=== PATIENT | male | born 1935 | race Caucasian/White ===

== ENCOUNTER 2016-11-04 12:17 | Inpatient (IN) | payer MEDICARE, OTHER ==
[~2016-11-04] VITALS: Ht 172.7 cm; Wt 97.6 kg
[2016-11-04 12:24] VITALS: BP 100/64
--- NOTE | 2016-11-04 12:51 | History & Physicial ---
History of Present Illness History of Present Illness Reason for visit/HPI CVA. Acute Lacunar infarct.. Patient 81 years old found by [facility] [place] was delivering oxygen to the patient's home. Patient was on the floor and flaccid on the right side. Transferred to [facility] from the to [facility] in [place] and now in via [facility]. Patient had right sided facial droop and difficulty in speaking. Patient has COPD on oxygen. Patient has Parkinson disease. dementia. DVT. COPD. Diabetes. Patient hard of hearing history by daughter Date of Admission November 04, 2016 at 12:17 I consulted on this patient on 11/04/16 12:46 Attending Physician Apolinar Ortega MD Admitting Physician Nilson May DO Consult Past Mdopioh-Jkyoji-Ylylre Hx Patient Social History Marrital Status: Employed/Student: unemployed Surgeries HX Surgeries: Yes Respiratory Respiratory Disorders: COPD Cardiovascular Hx Cardiovascular Disorders: No Constitutional: malaise, weakness EENTM: no symptoms reported Respiratory: dyspnea on exertion, short of breath, other (COPD) Cardiovascular: no symptoms reported Gastrointestinal: no symptoms reported Genitourinary: no symptoms reported Physical Exam Vital Signs Vital Sign - Last 12Hours 11/04/16 12:24 Temp 98.6 Pulse 101 Resp 16 B/P (MAP) 100/64 Pulse Ox 91 O2 Delivery Nasal Cannula O2 Flow Rate 3.00 Capillary Refill : General Appearance: No Apparent Distress, Other (On oxygen) Eyes: Bilateral Eye Normal Inspection HEENT: Normal ENT Inspection Neck: Normal Inspection Respiratory: Decreased Breath Sounds, Wheezing Cardiovascular: Regular Rate, Rhythm, No Murmur Gastrointestinal: Non Tender, Soft Assessment/Plan Assessment and Plan 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 COPD. Dementia. Diabetes. GERD. DVT history. COPD. Problems: [place] KIM DO November 04, 2016 12:51
[2016-11-04] MEDS ORDERED: LOPERAMIDE 2 MG (IMODIUM) CAP PO PRN (14:15)
--- NOTE | 2016-11-04 14:21 | Occupational Therapy Eval ---
OT Evaluation-General/PLF Medical Diagnosis Admission Date November 04, 2016 at 12:17 Medical Diagnosis: CVA Onset Date: November 04, 2016 Therapy Diagnosis Therapy Diagnosis: Impaired self care skills Referral Physician: Lisa Medical History Pertinent Medical History: COPD, DM, Dementia, GERD, HTN, Parkinson's Reviewed History: Yes Social History Home: Single Level Current Living Status: Alone (Daughter states family stays with pt at night. He is home alone sometimes during the day) Entry Into Home: Stairs Without Railing Steps Into Home: 4 ADL-Prior Level of Function ADL PLOF Comments Daughter states pt is usually able to dress himself, but receives assist as needed. Bath aide 2x/wk. Family does the cooking and cleaning. No AD for mobility DME/Equipment: Bath Chair, Shower OT Current Status Subjective Pt sitting in chair with daughter present, agrees to treatment. Mental Status/Objective Patient Orientation: Person Pt states he is in [place]. Attachments: Oxygen Current Glasses/Contacts: Yes (reading glasses) Dentures/Partials: Yes Hand Dominance: Right Upper Extremity ROM Grossly WFL Upper Extremity Sensation Pt reports numbness in right fingers Upper Extremity Strength Grossly 4/5 ADL-Treatment ADL-Current Pt participated in UE assessment while seated in chair. Pt washed face with set up and increased time. Sit to stand with minimal assistance. Pt demonstrated ability to perform transfers with minimal assistance and cues for walker use. Pt requires directions for safety and sequencing task. Pt sitting in chair, DAILY present for continued treatment. Functional [place] Measure 0=Not Assessed/NA 4=Minimal Assistance 1=Total Assistance 5=Supervision or Setup 2=Maximal Assistance 6=Modified [place] 3=Moderate Assistance 7=Complete IndependenceIRFPAI Quality Coding Scale 6 Independent with activity with or without an assistive device 5 Patient requires set up or clean up by helper. Patient completes activity by themselves 4 Supervision or touching assist (CGA). [place] provide cues , steadying assist 3 The helper provides less than half the effort to complete the activity 2 The helper provides more than half the effort to complete the activity 1 Dependent. The helper does all the effort to complete an activity 7 Patient refused to complete or attempt activity 9 The patient did not perform the activity before the current illness or injury 88 Not attempted due to Medical conditions or safety concerns Education OT Patient Education: Rehab process Teaching Recipient: Patient Teaching Methods: Discussion Response to Teaching: Reinforcement Needed OT Short Term Goals Short Term Goals Time Frame: November 11, 2016 Bathing(FIM): 4 Lower Body Dressing(FIM): 4 Toileting(FIM): 4 1=Demonstrate adherence to instructed precautions during ADL tasks. 2=Patient will verbalize/demonstrate understanding of assistive devices/ modifications for ADL. 3=Patient will improve strength/tolerance for activity to enable patient to perform ADL's. OT Repairer Hairspring Goals Repairer Hairspring Goals Time Frame: November 25, 2016 Eating (FIM): 6 Eating (QC): 6 Groomin Oral Hygiene (QC): 6 Bathing(FIM): 5 Shower/Bathe Self (QC): 5 Upper Body Dressing(FIM): 5 Upper Body Dressing (QC): 5 Lower Body Dressing(FIM): 5 Lower Body Dressing (QC): 5 On/Off Footwear (QC): 5 Toileting(FIM): 5 Toileting Hygiene (QC): 5 Toilet/Commode Transfer(FIM): 5 Toilet/Commode Transfer (QC): 5 Shower Transfer(FIM): 5 Additional Goals: 1-Demonstrate ADL Tasks, 2-Verbalize Understanding, 3- ImproveStrength/Issa 1=Demonstrate adherence to instructed precautions during ADL tasks. 2=Patient will verbalize/demonstrate understanding of assistive devices/ modifications for ADL. 3=Patient will improve strength/tolerance for activity to enable patient to perform ADL's. OT Education/Plan Problem List/Assessment Assessment: Decreased Activ Tolerance, Decreased UE Strength, Dependent Transfers, Impaired Self-Care Skills Pt to benefit from skilled OT intervention for ADL training, transfers, strengthening, and safety education to maximize level of function and allow safe return home with family support. Discharge Recommendations Plan/Recommendations: Continue POC Treatment Plan/Plan of Care Treatment,Training & Education: Yes Patient would benefit from OT for education, treatment and training to promote independence in ADL's, mobility, safety and/or upper extremity function for ADL' s. Plan of Care: ADL Retraining, Functional Mobility, Group Exercise/Act as Ind, UE Funct Exercise/Act, UE Neuromus Re-Ed/Coord Treatment Duration: November 25, 2016 # of days/week 5-6 Visits Per Week: 10-12 Minutes/Day (M-F): 60-90 Minutes/Day (Sat/Holguin): PRN Agreement: Yes Rehab Potential: Good Time/GCodes Start Time: 12:10 Stop Time: 12:35 Total Time Billed (hr/min): 25 Billed Treatment Time 1 visit, EVM(15minutes), ADL(10minutes) ZANDER BERMUDEZ OT November 04, 2016 14:21
--- NOTE | 2016-11-04 14:56 | Occupational Ther Daily Note ---
OT Current Status-Daily Note Subjective Pt alert, sitting up in recliner. Daughter present in room. Pt agreed to therapy. No c/o pain at this time. Mental Status/Objective Patient Orientation: Person, Place, Time, Situation Functional [place] Measure 0=Not Assessed/NA 4=Minimal Assistance 1=Total Assistance 5=Supervision or Setup 2=Maximal Assistance 6=Modified [place] 3=Moderate Assistance 7=Complete [place] ADL-Treatment Pt able to go from supine to sitting EOB with min A. Pt then ambulated with CGA using FWW to bathroom and transferred to toilet with CGA. Pt was able to manipulate his clothing and cleanse self after toileting with CGA. Pt required min A to doff pants and was able to doff socks by self. Pt transferred to shower with min A and CGA when standing to cleanse buttocks/kelley area. Pt bathed all other areas while using shower bench, hand held shower and grabbars with SBA. Min A to don shirt, doffed shirt by self. Mod A for lower body dressing. Min A for grooming when standing at sink, pt fatigued quickly. Pt had difficulty with buttoning and zipping pants due to decreased hand strength and decreased sensation in fingers. No LOB noted throughout treatment. After therapy, PT took over care of pt. All needs met in room. Functional [place] Measure 0=Not Assessed/NA 4=Minimal Assistance 1=Total Assistance 5=Supervision or Setup 2=Maximal Assistance 6=Modified [place] 3=Moderate Assistance 7=Complete IndependenceIRFPAI Quality Coding Scale 6 Independent with activity with or without an assistive device 5 Patient requires set up or clean up by helper. Patient completes activity by themselves 4 Supervision or touching assist (CGA). [place] provide cues , steadying assist 3 The helper provides less than half the effort to complete the activity 2 The helper provides more than half the effort to complete the activity 1 Dependent. The helper does all the effort to complete an activity 7 Patient refused to complete or attempt activity 9 The patient did not perform the activity before the current illness or injury 88 Not attempted due to Medical conditions or safety concerns Grooming (FIM): 4 Oral Hygiene (QC): 3 (Per daughter. Daughter stated that she had brushed pt's dentures after breakfast.) Bathing (FIM): 4 Bathing Location: L Arm, R Arm, L Upper Leg, R Upper Leg, Chest, Abdomen, Buttocks, Perineal Area Shower/Bathe Self (QC): 3 Upper Body (FIM): 4 Upper Body Dressing (QC): 3 Lower Body Dressing (FIM): 3 Lower Body Dressing (QC): 2 On/Off Footwear (QC): 2 Toileting (FIM): 4 Toileting Hygiene (QC): 3 Transfers (B, C, W/C) (FIM): 4 Toilet/Commode Transfer (FIM): 4 Toilet Transfer (QC): 4 Shower Transfer(FIM): 4 OT Short Term Goals Short Term Goals Time Frame: November 11, 2016 Bathing(FIM): 4 Lower Body Dressing(FIM): 4 Toileting(FIM): 4 1=Demonstrate adherence to instructed precautions during ADL tasks. 2=Patient will verbalize/demonstrate understanding of assistive devices/ modifications for ADL. 3=Patient will improve strength/tolerance for activity to enable patient to perform ADL's. OT Penitentiary Goals Penitentiary Goals Time Frame: November 25, 2016 Eating (FIM): 6 Eating (QC): 6 Groomin Oral Hygiene (QC): 6 Bathing(FIM): 5 Shower/Bathe Self (QC): 5 Upper Body Dressing(FIM): 5 Upper Body Dressing (QC): 5 Lower Body Dressing(FIM): 5 Lower Body Dressing (QC): 5 On/Off Footwear (QC): 5 Toileting(FIM): 5 Toileting Hygiene (QC): 5 Toilet/Commode Transfer(FIM): 5 Toilet/Commode Transfer (QC): 5 Shower Transfer(FIM): 5 Additional Goals: 1-Demonstrate ADL Tasks, 2-Verbalize Understanding, 3- ImproveStrength/Issa 1=Demonstrate adherence to instructed precautions during ADL tasks. 2=Patient will verbalize/demonstrate understanding of assistive devices/ modifications for ADL. 3=Patient will improve strength/tolerance for activity to enable patient to perform ADL's. OT Education/Plan Problem List/Assessment Pt to benefit from skilled OT intervention for ADL training, transfers, strengthening, and safety education to maximize level of function and allow safe return home with family support. Discharge Recommendations Plan/Recommendations: Continue POC Treatment Plan/Plan of Care Patient would benefit from OT for education, treatment and training to promote independence in ADL's, mobility, safety and/or upper extremity function for ADL' s. Plan of Care: ADL Retraining, Functional Mobility, Group Exercise/Act as Ind, UE Funct Exercise/Act, UE Neuromus Re-Ed/Coord Treatment Duration: November 25, 2016 Visits Per Week: 10-12 Minutes/Day (M-F): 60-90 Minutes/Day (Sat/Holgu[place]): PRN Agreement: Yes Rehab Potential: Good Time/GCodes Start Time: 12:35 Stop Time: 13:40 Total Time Billed (hr/min): 65 Billed Treatment Time 1 visit-ADL 4 (65 min) DOMINGO PIMENTEL November 04, 2016 14:56
[2016-11-04] MEDS ORDERED: BIMA2.5D5 OU (14:57)
[2016-11-04] MEDS ORDERED: GUAI5SYR PO (14:57)
[2016-11-04] MEDS ORDERED: METH1TAB59 PO (14:57)
[2016-11-04] MEDS ORDERED: OMEP20CA12 PO (14:57)
[2016-11-04] MEDS ORDERED: WARF5TAB8 PO (14:57)
[2016-11-04] MEDS ORDERED: CARB1TAB22 PO (14:57)
[2016-11-04] MEDS ORDERED: GABA-488 PO (14:57)
[2016-11-04] MEDS ORDERED: RT-ALBUINH INH (14:57)
[2016-11-04] MEDS ORDERED: LOPE2CAP PO (14:57)
[2016-11-04] MEDS ORDERED: IPRA3AMP IH (14:57)
[2016-11-04] MEDS ORDERED: FLUT16SP22 NS (14:57)
[2016-11-04] MEDS ORDERED: MAGN400T39 PO (14:57)
[2016-11-04] MEDS ORDERED: BUDE0.5A7 NEB (14:57)
[2016-11-04] MEDS ORDERED: DONE10TA41 PO (14:57)
[2016-11-04] MEDS ORDERED: CYAN10006 PO (14:57)
[2016-11-04] MEDS ORDERED: LORA10TA7 PO (14:57)
[2016-11-04] MEDS ORDERED: CALC667C10 PO (14:57)
--- NOTE | 2016-11-04 15:08 | Physical Therapy Evaluation ---
PT Evaluation-General Medical Diagnosis Admission Date November 04, 2016 at 12:17 Medical Diagnosis: CVA Onset Date: November 04, 2016 Therapy Diagnosis Therapy Diagnosis: impaired mobility, strength, endurance Precautions Precautions/Isolations: Fall Prevention, Standard Precautions Referral Physician: Lisa Reason for Referral: Evaluation/Treatment Medical History Pertinent Medical History: COPD, DM, Dementia, GERD, HTN, Parkinson's Additional Medical History ZUNI, chronic anticoagulation, Parkinson's, surg (HCHG IVC filter placement, cataract removal, heart catheterization) Current History went to ER with right sided weakness Reviewed History: Yes Social History Home: Single Level Current Living Status: Alone (Daughter states family stays with pt at night. He is home alone sometimes during the day) Entry Into Home: Stairs Without Railing PT Steps Into Home: 4 Prior/Core FIM Prior Level of Function Functional [place] Measure 0=Not Assessed/NA 4=Minimal Assistance 1=Total Assistance 5=Supervision or Setup 2=Maximal Assistance 6=Modified [place] 3=Moderate Assistance 7=Complete [place] Bed Mobility: 7 Transfers (B,C,W/C) (FIM): 7 Gait: 7 PT Evaluation-Current Subjective Patient in recliner pre tx, he cannot answer questions about medical history, but his daughter is here and she can. Patient states he has no pain. Pt/Family Goals none stated Objective Patient Orientation: Confused Attachments: Oxygen 2L of O2 nasal canula ROM/Strength ROM Lower Extremities WNL Strenght Lower Extremities right lower extremity (hip flexion 3+/5, knee flexion 4/5, knee extension 4/5, dorsiflexion 3+/5), left lower extremity (hip flexion 3+/5, knee flexion 4/5, knee extension 4/5, dorsiflexion 3+/5) Neuromuscular (Tone, Coordination, Reflexes) WNL Sensory Vision: Functional Hearing: Impaired Hand Dominance: Right Sensation Lower Extremities patient seems to not have light touch sensation in either leg below the knee, but he also is confused and results may not be reliable Transfers Functional [place] Measure 0=Not Assessed/NA 4=Minimal Assistance 1=Total Assistance 5=Supervision or Setup 2=Maximal Assistance 6=Modified [place] 3=Moderate Assistance 7=Complete IndependenceIRFPAI Quality Coding Scale 6 Independent with activity with or without an assistive device 5 Patient requires set up or clean up by helper. Patient completes activity by themselves 4 Supervision or touching assist (CGA). [place] provide cues , steadying assist 3 The helper provides less than half the effort to complete the activity 2 The helper provides more than half the effort to complete the activity 1 Dependent. The helper does all the effort to complete an activity 7 Patient refused to complete or attempt activity 9 The patient did not perform the activity before the current illness or injury 88 Not attempted due to Medical conditions or safety concerns Transfers (B, C, W/C) (FIM): 4 Scootin Rollin Roll Left to Right (QC): 3 Supine to/from Sit: 4 Sit to/from Stand: 4 bed t/f WC(FIM only if WC use): 3 Sit to Lying (QC): 3 Lying to Sitting/Side of Bed(Q: 3 Sit to Stand (QC): 3 Chair/Yfi-ck-Cvcid Xfer(QC): 3 Car Transfer (QC): 88 Patient is min assist for bed mobility and transfers, needs cues for safety and hand placement. Patient is very ZUNI and confused so you have to go slow and make sure he can understand what you say. Gait Does the Patient Walk?: Yes Mode of Locomotion: Both Gait (FIM): 4 Walk 10 feet (QC): 3 Walk 50 ft with 2 Turns(QC): 3 Walk 150 ft (QC): 3 Walking 10ft/uneven surface-QC: 88 Distance: 150'x4 Gait Level of Assist: 4 Gait Persons Needed: 1 Gait Assistive Device: FWW Comments/Gait Description Patient needs min assist to ambulate 150' with a rolling walker due to assist turning the walker and helping direct him. Patient needs cues for safety and direction. He is not safe to ambulate over an uneven surface at this time. Wheelchair Training Does the Pt Use a Wheelchair?: Yes Wheelchair (FIM): 1 Distance: 150' Wheelchair Level of Assist: 1 Wheel 50 ft with 2 turns (QC): 1 Wheel 150 ft (QC): 1 Type of Wheelchair: Manual Patient is confused and cannot propel a manual wheelchair. Stairs Stairs (FIM): 1 #of Steps: 1 Level of Assist: 4 1 Step (curb) (QC): 3 4 Steps (QC): 88 Assistive Device: Walker 12 Steps (QC): 88 Patient can go up and down 1 step using a rolling walker with min assist to maintain balance. Balance Sitting Static: Normal Sitting Dynamic: Normal Standing Static: Fair Standing Dynamic: Fair Treatment LAQ alternating for 5 min, Nustep level 4 for 15 min, patient also stood at the edge of his bed and urinated into a urinal with min assist. Assessment/Needs Patient has impairments in mobility, strength, endurance, post CVA. He does have a right facial droop. He is confused. At the end of tx, patient placed in bed with bed alarm on and has nurse call and tray, family in the room. Patient fatigues quickly and needs rest breaks between activities. Rehab Potential: Fair PT Short Term Goals Short Term Goals Time Frame: November 11, 2016 Transfers (B,C,W/C) (FIM): 4 (CGA) Gait (FIM): 4 (CGA) Gait Distance Comment: 150' Gait Level of Assist: 4 (CGA) Gait Assistive Device: FWW PT Wax Engraver Goals Long-Term Goals PT Long-Term Goals Time Frame: November 25, 2016 Transfers (B,C,W/C) (FIM): 5 Sit to Lying (QC): 4 Lying-Sitting on Side/Bed(QC): 5 Sit to Stand (QC): 4 Rollin Roll Left to Right (QC): 4 Chair/Fzl-ev-Wzewg Xfer(QC): 4 Car Transfer (QC): 4 Gait (FIM): 5 Distance: 200' Walk 10 feet (QC): 4 Walk 10ft-Uneven Surface(QC): 4 Walk 50ft with 2 Turns (QC): 4 Walk 150 ft (QC): 4 Gait Level of Assist: 5 Gait Assistive Device: FWW Stairs (FIM): 2 # of Steps: 4 1 Step (curb) (QC): 4 4 Steps (QC): 4 12 Steps (QC): 88 Stairs Level Of Assist: 4 (CGA) Picking up an Object (QC): 88 PT Plan Problem List Problem List: Activity Tolerance, Functional Strength, Safety, Balance, Gait, Transfer, Bed Mobility, ROM Treatment/Plan Treatment Plan: Continue Plan of Care Treatment Plan: Bed Mobility, Education, Functional Activity Issa, Functional Strength, Group Therapy, Gait, Safety, Therapeutic Exercise, Transfers Treatment Duration: November 25, 2016 # of days/week 5-6 Visits Per Week: 10-11 Minutes/Day (M-F): 60-90 Minutes/Day (Sat/Holguin): 15-30 Pt/Family Agrees w/Plan: Yes Safety Risks/Education Patient Education: Gait Training, Transfer Techniques, Steps, Correct Positioning, W/C Management, Safety Issues Teaching Recipient: Patient Teaching Methods: Demonstration, Discussion Response to Teaching: Reinforcement Needed Discharge Recommendations Plan Patient will perform bed mobility and transfer training, balance and endurance training, functional strengthening, stair training, gait training, and education , to improve functional mobility and independence at home. Therapy D/C Recommendations: Home w/ Family Support, Senior Care (TCU/NH) Time/GCodes Time In: 1340 Time Out: 1510 Total Billed Treatment Time: 90 Total Billed Treatment 1 visit EVM 15' EX 20' FA 15' WC 15' GT 25' COMFORT GONSALES PT November 04, 2016 15:08
[2016-11-04] MEDS: inSUlin ASPART (NovoLOG) 1 UNIT/0.01 ML (CHARGE PER UNIT) SC SCH ×2 (15:44→20:04)
[2016-11-04] MEDS: RT-ALBUTEROL/IPRATROPIUM 3 ML (DUONEB) VIAL INH SCH ×2 (16:13→22:02)
[2016-11-04] MEDS: CALCIUM ACETATE 667 MG PO SCH (17:14)
[2016-11-04] MEDS: SINEMET 25/250 (CARBIDOPA/LEVODOPA) TAB PO SCH ×2 (17:14→20:26)
[2016-11-04 18:41] VITALS: BP 91/46
[2016-11-04] MEDS: ARFORMOTEROL 15 MCG/2 ML (BROVANA) INH SOLUTIION IH SCH (20:08)
[2016-11-04] MEDS: RT-BUDESONIDE NEBS 0.5 MG/2ML (PULMICORT) AMP INH SCH (20:08)
[2016-11-04] MEDS: LATANOPROST 0.005% (XALATAN) OPHTH SOLN 2.5 ML OU SCH (20:26)
[2016-11-04] MEDS: GABAPENTIN 300 MG (NEURONTIN) CAP PO SCH (20:26)
[2016-11-04] MEDS: DONEPEZIL 10 MG (ARICEPT) TAB PO SCH (20:26)
[2016-11-05] MEDS: RT-ALBUTEROL/IPRATROPIUM 3 ML (DUONEB) VIAL INH SCH ×4 (02:24→19:24)
[2016-11-05 05:00] VITALS: BP 95/58
[2016-11-05] MEDS: inSUlin ASPART (NovoLOG) 1 UNIT/0.01 ML (CHARGE PER UNIT) SC SCH ×4 (05:11→20:28)
[2016-11-05 06:01] LABS: MEAN PLATELET VOLUME 9.4 FL (7.4-10.4); RED BLOOD COUNT 4.12 10^6/uL (4.35-5.85); RED CELL DISTRIBUTION WIDTH 14.2 % (10.0-14.5); WHITE BLOOD COUNT 5.4 10^3/uL (4.3-11.0)
[2016-11-05 06:03] LABS: PROTHROMBIN TIME PATIENT 22.3 SEC (12.2-14.7)
[2016-11-05] MEDS: CALCIUM ACETATE 667 MG PO SCH ×2 (06:28→17:47)
[2016-11-05] MEDS: FOLIC ACID 1 MG TAB PO SCH (06:28)
[2016-11-05] MEDS: OMEPRAZOLE 20 MG (PriLOSEC) CAP NON-FORMULARY PO SCH (06:29)
[2016-11-05 06:47] LABS: ALANINE AMINOTRANSFERASE 7 U/L (0-55); ALBUMIN 3.2 G/DL (3.2-4.5); ANION GAP 6 MMOL/L (5-14); ASPARTATE AMINO TRANSFERASE 18 U/L (5-34); BILIRUBIN,TOTAL 0.5 MG/DL (0.1-1.0); BLOOD UREA NITROGEN 21 MG/DL (7-18); BUN/CREATININE RATIO 27; CALCIUM 8.8 MG/DL (8.5-10.1); CARBON DIOXIDE 28 MMOL/L (21-32); CHLORIDE 107 MMOL/L (98-107); CREATININE SERUM 0.78 MG/DL (0.60-1.30); GFR ESTIMATED > 60; GLUCOSE 125 MG/DL (70-105); POTASSIUM 3.7 MMOL/L (3.6-5.0); SODIUM 141 MMOL/L (135-145); TOTAL PROTEIN 5.7 G/DL (6.4-8.2)
[2016-11-05] MEDS ORDERED: PANTOPRAZOLE 40 MG (PROTONIX) TAB PO SCH (07:00)
[2016-11-05] MEDS: ARFORMOTEROL 15 MCG/2 ML (BROVANA) INH SOLUTIION IH SCH ×2 (07:32→19:24)
[2016-11-05] MEDS: RT-BUDESONIDE NEBS 0.5 MG/2ML (PULMICORT) AMP INH SCH ×2 (07:32→19:24)
--- NOTE | 2016-11-05 08:23 | PM&R Post Admission Assessment ---
Post Admission Physician Asses The preadmission screen agrees with the post admission assessment that the patient is a good candidate for inpatient rehabilitation. The patient will have a comprehensive program of inpatient rehabilitation with a goal of maximizing level of functional independence prior to discharge home with family. The patient will have PT/OT ninety minutes per day, each discipline, five days a week for gait ,strengthening, conditioning, balance, ADLs, any patient/family/caregiver training necessary. Speech therapy to do cognitive assessment, swallowassessment and speech assessment and treat as indicated. Rehabilitation nursing to assist with bowel, bladder, skin care, medication administration, pain management. Piping Supervisor to assist with discharge planning, community reentry. SCD's for DVT prophylaxis. He appears to be well motivated to participate in three hours of therapy a day. He should be able to tolerate three hours of therapy a day from a medical standpoint. He should benefit from the three hours of therapy a day. He has a reasonable discharge plan, reasonable discharge rehabilitation goals and a supportive family. He has various comorbidities that need to be closely monitored with medications and treatments adjusted on a daily basis as needed. These include: Copd with 02 dependence Parkinsons D Barriers to discharge for this patient who had been independent prior to this are for him to be modified independent to supervision for ADLs and mobility skills prior to discharge home with family, so as to lessen the burden of the caregivers. Risks for this patient include: 1. Fall 2. Fracture 3. DVT 4. Pulmonary embolism 5. Wound infection 6. Skin breakdown 7. Contractures 8. Poorly controlled pain 9. Urinary retention 10. UTI 11. Respiratory infection 12. Aspiration 13. Worsening Parkinsons D 14. Acute exacerbation of COPD Estimated Length of Stay: []days Prognosis: Rehab prognosis appears fair for goal of discharge home with family modified independent to supervision for ADLs and mobility skills or possibly to an KATINA if needed. MERVIN LEE MD November 05, 2016 08:23
[2016-11-05] MEDS: LORATADINE (CLARITIN) 10 MG TAB PO SCH (08:48)
[2016-11-05] MEDS: SINEMET 25/250 (CARBIDOPA/LEVODOPA) TAB PO SCH ×4 (08:49→20:28)
[2016-11-05] MEDS: CYANOCOBALAMIN 500 MCG TAB (VITAMIN B-12) PO SCH (08:49)
[2016-11-05] MEDS: MAGNESIUM OXIDE (MAG-OX)400 MG TAB PO SCH (08:49)
[2016-11-05] MEDS: lisINopril 5 MG (PRINIVIL) TABLET PO SCH (08:50)
[2016-11-05] MEDS: ASPIRIN 81 MG CHEW (CHILDREN'S ASA) PO SCH (08:51)
[2016-11-05] MEDS: FLUTICASONE NASAL SPRAY (FLONASE) 16 GM BTL NS SCH (08:52)
--- NOTE | 2016-11-05 10:16 | Physical Therapy Daily Note ---
PT Daily Note-Current Subjective States that he is doing okay. Transfers Functional [place] Measure 0=Not Assessed/NA 4=Minimal Assistance 1=Total Assistance 5=Supervision or Setup 2=Maximal Assistance 6=Modified [place] 3=Moderate Assistance 7=Complete IndependenceIRFPAI Quality Coding Scale 6 Independent with activity with or without an assistive device 5 Patient requires set up or clean up by helper. Patient completes activity by themselves 4 Supervision or touching assist (CGA). [place] provide cues , steadying assist 3 The helper provides less than half the effort to complete the activity 2 The helper provides more than half the effort to complete the activity 1 Dependent. The helper does all the effort to complete an activity 7 Patient refused to complete or attempt activity 9 The patient did not perform the activity before the current illness or injury 88 Not attempted due to Medical conditions or safety concerns Transfers (B, C, W/C) (FIM): 5 Scootin Supine to/from Sit: 5 Sit to/from Stand: 5 Gait Training Gait (FIM): 5 Distance (FIM): 3=150 ft Distance: 150' x 2 Gait Level of Assist: 5 Gait Persons Needed: 1 Gait Assistive Device: FWW Exercises NuStep Minutes: 5 NuStep Workload: 5 Assessment Current Status: Excellent Progress Patient did well with gait. PT Short Term Goals Short Term Goals Time Frame: November 11, 2016 Transfers (B,C,W/C) (FIM): 4 (CGA) Gait (FIM): 4 (CGA) Gait Distance Comment: 150' Gait Level of Assist: 4 (CGA) Gait Assistive Device: FWW Wheelchair Distance: 150' PT Intermediate Goals Advertising Clerk Goals PT Advertising Clerk Goals Time Frame: November 25, 2016 Transfers (B,C,W/C) (FIM): 5 Sit to Lying (QC): 4 Lying-Sitting on Side/Bed(QC): 5 Sit to Stand (QC): 4 Rollin Roll Left to Right (QC): 4 Chair/Wlh-ey-Gijdj Xfer(QC): 4 Car Transfer (QC): 4 Gait (FIM): 5 Distance: 200' Walk 10 feet (QC): 4 Walk 10ft-Uneven Surface(QC): 4 Walk 50ft with 2 Turns (QC): 4 Walk 150 ft (QC): 4 Gait Level of Assist: 5 Gait Assistive Device: FWW Stairs (FIM): 2 # of Steps: 4 1 Step (curb) (QC): 4 4 Steps (QC): 4 12 Steps (QC): 88 Stairs Level Of Assist: 4 (CGA) Picking up an Object (QC): 88 PT Plan Treatment/Plan Treatment Plan: Continue Plan of Care Treatment Plan: Bed Mobility, Education, Functional Activity Issa, Functional Strength, Group Therapy, Gait, Safety, Therapeutic Exercise, Transfers Treatment Duration: November 25, 2016 Visits Per Week: 10-11 Minutes/Day (M-F): 60-90 Minutes/Day (Sat/Holguin): 15-30 Time/GCodes Time In: 0935 Time Out: 1005 Total Billed Treatment Time: 30 Total Billed Treatment 1, GT x 25, EX x 5' G Codes Necessary: KORY Infante PT November 05, 2016 10:16
[2016-11-05] MEDS: warFARin 5 MG (COUMADIN) TAB PO SCH (17:47)
[2016-11-05 18:00] VITALS: BP 114/65
[2016-11-05] MEDS: DONEPEZIL 10 MG (ARICEPT) TAB PO SCH (20:28)
[2016-11-05] MEDS: GABAPENTIN 300 MG (NEURONTIN) CAP PO SCH (20:28)
[2016-11-05] MEDS: LATANOPROST 0.005% (XALATAN) OPHTH SOLN 2.5 ML OU SCH (20:29)
[2016-11-06] MEDS: RT-ALBUTEROL/IPRATROPIUM 3 ML (DUONEB) VIAL INH SCH ×4 (04:31→20:45)
[2016-11-06 05:00] VITALS: BP 122/76
[2016-11-06 05:36] LABS: INR 1.9 (0.8-1.4); PROTHROMBIN TIME PATIENT 21.7 SEC (12.2-14.7)
[2016-11-06] MEDS: inSUlin ASPART (NovoLOG) 1 UNIT/0.01 ML (CHARGE PER UNIT) SC SCH ×4 (06:26→21:46)
[2016-11-06] MEDS: FOLIC ACID 1 MG TAB PO SCH (06:27)
[2016-11-06] MEDS: CALCIUM ACETATE 667 MG PO SCH ×2 (06:27→16:10)
[2016-11-06] MEDS: OMEPRAZOLE 20 MG (PriLOSEC) CAP NON-FORMULARY PO SCH (06:27)
[2016-11-06] MEDS: LORATADINE (CLARITIN) 10 MG TAB PO SCH (07:51)
[2016-11-06] MEDS: MAGNESIUM OXIDE (MAG-OX)400 MG TAB PO SCH (07:51)
[2016-11-06] MEDS: SINEMET 25/250 (CARBIDOPA/LEVODOPA) TAB PO SCH ×4 (07:51→20:47)
[2016-11-06] MEDS: CYANOCOBALAMIN 500 MCG TAB (VITAMIN B-12) PO SCH (07:51)
[2016-11-06] MEDS: lisINopril 5 MG (PRINIVIL) TABLET PO SCH (07:52)
[2016-11-06] MEDS: ASPIRIN 81 MG CHEW (CHILDREN'S ASA) PO SCH (07:52)
[2016-11-06] MEDS: FLUTICASONE NASAL SPRAY (FLONASE) 16 GM BTL NS SCH (07:53)
[2016-11-06] MEDS: ARFORMOTEROL 15 MCG/2 ML (BROVANA) INH SOLUTIION IH SCH ×2 (10:57→20:38)
[2016-11-06] MEDS: RT-BUDESONIDE NEBS 0.5 MG/2ML (PULMICORT) AMP INH SCH ×2 (10:59→20:38)
[2016-11-06] MEDS: warFARin 5 MG (COUMADIN) TAB PO SCH (17:31)
[2016-11-06 18:26] VITALS: BP 100/59
[2016-11-06] MEDS: LATANOPROST 0.005% (XALATAN) OPHTH SOLN 2.5 ML OU SCH (20:46)
[2016-11-06] MEDS: DONEPEZIL 10 MG (ARICEPT) TAB PO SCH (20:47)
[2016-11-06] MEDS: GABAPENTIN 300 MG (NEURONTIN) CAP PO SCH (20:47)
[2016-11-07] MEDS: RT-ALBUTEROL/IPRATROPIUM 3 ML (DUONEB) VIAL INH SCH ×4 (02:21→21:00)
[2016-11-07 04:51] VITALS: BP 105/67
[2016-11-07] MEDS: inSUlin ASPART (NovoLOG) 1 UNIT/0.01 ML (CHARGE PER UNIT) SC SCH ×4 (05:10→21:57)
[2016-11-07] MEDS: CALCIUM ACETATE 667 MG PO SCH ×2 (06:05→16:55)
[2016-11-07] MEDS: OMEPRAZOLE 20 MG (PriLOSEC) CAP NON-FORMULARY PO SCH (06:05)
[2016-11-07] MEDS: FOLIC ACID 1 MG TAB PO SCH (06:06)
[2016-11-07 06:16] LABS: INR 1.8 (0.8-1.4); PROTHROMBIN TIME PATIENT 20.6 SEC (12.2-14.7)
[2016-11-07] MEDS: FLUTICASONE NASAL SPRAY (FLONASE) 16 GM BTL NS SCH (08:16)
[2016-11-07] MEDS: ASPIRIN 81 MG CHEW (CHILDREN'S ASA) PO SCH (08:17)
[2016-11-07] MEDS: SINEMET 25/250 (CARBIDOPA/LEVODOPA) TAB PO SCH ×4 (08:17→20:53)
[2016-11-07] MEDS: MAGNESIUM OXIDE (MAG-OX)400 MG TAB PO SCH (08:17)
[2016-11-07] MEDS: CYANOCOBALAMIN 500 MCG TAB (VITAMIN B-12) PO SCH (08:17)
[2016-11-07] MEDS: lisINopril 5 MG (PRINIVIL) TABLET PO SCH (08:18)
[2016-11-07] MEDS: LORATADINE (CLARITIN) 10 MG TAB PO SCH (08:19)
--- NOTE | 2016-11-07 08:30 | Progress Note (SOAP) ---
Subjective Subjective/Events-last exam CVA. COPD. Parkinson disease. DVT. Dementia. Patient hard of hearing. Patient voices no complaints Objective Exam Vital Signs Date Time Temp Pulse Resp B/P (MAP) Pulse Ox O2 Delivery O2 Flow Rate FiO2 11/07/16 06:46 91 4.50 11/07/16 04:51 97.8 76 18 105/67 92 Nasal Cannula 3.00 11/07/16 02:21 90 4.50 11/06/16 20:43 94 4.50 11/06/16 20:38 92 4.50 11/06/16 20:00 3.00 11/06/16 18:26 98.4 86 18 100/59 92 Nasal Cannula 3.00 11/06/16 15:38 94 4.00 11/06/16 11:02 92 4.00 11/06/16 10:57 92 4.00 11/06/16 09:59 3.50 I & O 11/07/16 07:00 Intake Total 1220 ml Output Total 150 ml Balance 1070 ml Capillary Refill : General Appearance: No Apparent Distress, WD/WN HEENT: Normal ENT Inspection Neck: Full Range of Motion, Normal Inspection Respiratory: Chest Non Tender, Lungs Clear Cardiovascular: Regular Rate, Rhythm, No Murmur Gastrointestinal: non tender Results Lab Laboratory Tests 11/06/16 09:46: Glucometer 106 11/06/16 14:17: Glucometer 112H 11/06/16 21:43: Glucometer 111H 11/07/16 04:29: Glucometer 102 11/07/16 05:45: Prothrombin Time 20.6H, INR Comment 1.8H Assessment/Plan Assessment/Plan Assess & Plan/Chief Complaint CVA. COPD. Parkinson disease. DVT. Dementia.. Patient on 3 L of oxygen. Patient slept well last night Clinical Quality Measures DVT/VTE Risk/Contraindication: Risk Factor Score Per Nursin RFS Level Per Nursing on Admit: 4+=Very High [place] KIM DO November 07, 2016 08:30
--- NOTE | 2016-11-07 09:34 | Occupational Ther Daily Note ---
OT Current Status-Daily Note Subjective Pt. is very CREEK. OT repeats self multiple times throughout treatment. Appearance Pt. is up in chair. Agrees to shower. Mental Status/Objective Patient Orientation: Unable to Assess Functional [place] Measure 0=Not Assessed/NA 4=Minimal Assistance 1=Total Assistance 5=Supervision or Setup 2=Maximal Assistance 6=Modified [place] 3=Moderate Assistance 7=Complete [place] Pt. is very [place]. Also has difficulty sequencing tasks at times. Requires cues to complete steps in shower of bathing. ADL-Treatment Functional [place] Measure 0=Not Assessed/NA 4=Minimal Assistance 1=Total Assistance 5=Supervision or Setup 2=Maximal Assistance 6=Modified [place] 3=Moderate Assistance 7=Complete IndependenceIRFPAI Quality Coding Scale 6 Independent with activity with or without an assistive device 5 Patient requires set up or clean up by helper. Patient completes activity by themselves 4 Supervision or touching assist (CGA). [place] provide cues , steadying assist 3 The helper provides less than half the effort to complete the activity 2 The helper provides more than half the effort to complete the activity 1 Dependent. The helper does all the effort to complete an activity 7 Patient refused to complete or attempt activity 9 The patient did not perform the activity before the current illness or injury 88 Not attempted due to Medical conditions or safety concerns Bathing (FIM): 3 (Pt. requires cues to bathe each part that he is able to reach. Otherwise, OT washes under his arms, back, and head. OT also washed chest area. Required CGA in stance for balance.) Shower/Bathe Self (QC): 3 Upper Body (FIM): 3 (Pt. requires mod assist to thread arms and head through hole. Assist to adjust over his back.) Upper Body Dressing (QC): 3 Lower Body Dressing (FIM): 3 (Pt. requires increased time to put feet into underwear and pants. CGA in stance and min assist to pull pants over hips. Max assist to don shoes and socks.) Lower Body Dressing (QC): 3 On/Off Footwear (QC): 2 Toileting (FIM): 4 Toileting Hygiene (QC): 4 Transfers (B, C, W/C) (FIM): 4 (CGA for transfers.) Toilet/Commode Transfer (FIM): 4 Toilet Transfer (QC): 4 Shower Transfer(FIM): 4 Other Treatment Pt. agrees to shower. Wears O2 into shower. Cues throughout due to CREEK and decreased awareness to sequence steps. Pt. is somewhat impulsive and it is noted several times that he attempts to stand with no walker and no assist. Pt. is educated multiple times to stay in chair, and put clip on sunglasses inspector light if needed. OT also reminds him multiple times that PT will be in soon. Pt. has chair alarm in place and call light within reach. Education OT Patient Education: Correct positioning, Modified ADL techniques, Progress toward Goal/Update tx plan, Purpose of tx/functional activities, Reviewed precautions, Rehab process, Transfer techniques Teaching Recipient: Patient Teaching Methods: Demonstration, Discussion Response to Teaching: Verbalize Understanding, Return Demonstration OT Short Term Goals Short Term Goals Time Frame: November 11, 2016 Bathing(FIM): 4 Lower Body Dressing(FIM): 4 Toileting(FIM): 4 Transfers (B,C,W/C) (FIM): 4 (CGA) 1=Demonstrate adherence to instructed precautions during ADL tasks. 2=Patient will verbalize/demonstrate understanding of assistive devices/ modifications for ADL. 3=Patient will improve strength/tolerance for activity to enable patient to perform ADL's. OT Still Operator Batch Or Continuous Goals Still Operator Batch Or Continuous Goals Time Frame: November 25, 2016 Eating (FIM): 6 Eating (QC): 6 Groomin Oral Hygiene (QC): 6 Bathing(FIM): 5 Shower/Bathe Self (QC): 5 Upper Body Dressing(FIM): 5 Upper Body Dressing (QC): 5 Lower Body Dressing(FIM): 5 Lower Body Dressing (QC): 5 On/Off Footwear (QC): 5 Toileting(FIM): 5 Toileting Hygiene (QC): 5 Toilet/Commode Transfer(FIM): 5 Toilet/Commode Transfer (QC): 5 Shower Transfer(FIM): 5 Additional Goals: 1-Demonstrate ADL Tasks, 2-Verbalize Understanding, 3- ImproveStrength/Issa 1=Demonstrate adherence to instructed precautions during ADL tasks. 2=Patient will verbalize/demonstrate understanding of assistive devices/ modifications for ADL. 3=Patient will improve strength/tolerance for activity to enable patient to perform ADL's. OT Education/Plan Problem List/Assessment Assessment: Decreased Activ Tolerance, Decreased UE Strength, Dependent Transfers, Impaired Bed Mobility, Impaired Funct Balance, Impaired I ADL's, Impaired Self-Care Skills, Restricted Funct UE ROM Pt to benefit from skilled OT intervention for ADL training, transfers, strengthening, and safety education to maximize level of function and allow safe return home with family support. Discharge Recommendations Plan/Recommendations: Continue POC Therapy D/C Recommendations: Assisted Living, Occupational Therapy Home Care, Scheduled Assistance Barriers to Progress Cognition and CREEK Treatment Plan/Plan of Care Treatment,Training & Education: Yes Patient would benefit from OT for education, treatment and training to promote independence in ADL's, mobility, safety and/or upper extremity function for ADL' s. Plan of Care: ADL Retraining, Functional Mobility, Group Exercise/Act as Ind, UE Funct Exercise/Act, UE Neuromus Re-Ed/Coord Treatment Duration: November 25, 2016 Visits Per Week: 10-12 Minutes/Day (M-F): 60-90 Minutes/Day (Sat/[place]): PRN Agreement: Yes Rehab Potential: Fair Time/GCodes Start Time: 08:30 Stop Time: 09:30 Total Time Billed (hr/min): 60 Billed Treatment Time 1, ADL x 4 BEHZAD SHAFFER OT November 07, 2016 09:34
--- NOTE | 2016-11-07 11:03 | Physical Therapy Daily Note ---
PT Daily Note-Current Subjective Patient in recliner pre tx, agrees to PT, no complaints of pain. Appearance Patient in recliner post tx with nurse call, phone, tray, all needs met. Chair alarm on. Mental Status Patient Orientation: Confused Attachments: Oxygen 5L of O2 nasal canula Transfers Functional [place] Measure 0=Not Assessed/NA 4=Minimal Assistance 1=Total Assistance 5=Supervision or Setup 2=Maximal Assistance 6=Modified [place] 3=Moderate Assistance 7=Complete IndependenceIRFPAI Quality Coding Scale 6 Independent with activity with or without an assistive device 5 Patient requires set up or clean up by helper. Patient completes activity by themselves 4 Supervision or touching assist (CGA). [place] provide cues , steadying assist 3 The helper provides less than half the effort to complete the activity 2 The helper provides more than half the effort to complete the activity 1 Dependent. The helper does all the effort to complete an activity 7 Patient refused to complete or attempt activity 9 The patient did not perform the activity before the current illness or injury 88 Not attempted due to Medical conditions or safety concerns Transfers (B, C, W/C) (FIM): 4 Sit to/from Stand: 4 CGA, cues for safety and hand placement Gait Training Gait (FIM): 4 Distance: 400', 100' Gait Level of Assist: 4 Gait Persons Needed: 1 Gait Assistive Device: FWW Patient needs cues for safety and direction, his O2 stayed at 95% Balance Picking up an Object (QC): 4 Exercises Seated Therapy Exercises: Ankle pumps, Hip flexion Seated Reps: 20 Standing: Heel/toe raises, Marching, Mini squats Standing Reps: 20 LAQ alternating for 3 min NuStep Minutes: 15 NuStep Workload: 4 Treatments transfers, ambulation, functional strengthening Assessment Current Status: Fair Progress improving endurance PT Short Term Goals Short Term Goals Time Frame: November 11, 2016 Transfers (B,C,W/C) (FIM): 4 (CGA) Gait (FIM): 4 (CGA) Gait Distance Comment: 150' Gait Level of Assist: 4 (CGA) Gait Assistive Device: FWW Wheelchair Distance: 150' PT Home Decorator Goals Retirement Goals PT Retirement Goals Time Frame: November 25, 2016 Transfers (B,C,W/C) (FIM): 5 Sit to Lying (QC): 4 Lying-Sitting on Side/Bed(QC): 5 Sit to Stand (QC): 4 Rollin Roll Left to Right (QC): 4 Chair/Gjs-tf-Pofec Xfer(QC): 4 Car Transfer (QC): 4 Gait (FIM): 5 Distance: 200' Walk 10 feet (QC): 4 Walk 10ft-Uneven Surface(QC): 4 Walk 50ft with 2 Turns (QC): 4 Walk 150 ft (QC): 4 Gait Level of Assist: 5 Gait Assistive Device: FWW Stairs (FIM): 2 # of Steps: 4 1 Step (curb) (QC): 4 4 Steps (QC): 4 12 Steps (QC): 88 Stairs Level Of Assist: 4 (CGA) Picking up an Object (QC): 88 PT Plan Problem List Problem List: Activity Tolerance, Functional Strength, Safety, Balance, Gait, Transfer, Bed Mobility, ROM Treatment/Plan Treatment Plan: Continue Plan of Care Treatment Plan: Bed Mobility, Education, Functional Activity Issa, Functional Strength, Group Therapy, Gait, Safety, Therapeutic Exercise, Transfers Treatment Duration: November 25, 2016 Visits Per Week: 10-11 Minutes/Day (M-F): 60-90 Minutes/Day (Sat/[place]): 15-30 Safety Risks/Education Patient Education: Gait Training, Transfer Techniques, Correct Positioning, Safety Issues Teaching Recipient: Patient Teaching Methods: Demonstration, Discussion Response to Teaching: Reinforcement Needed Time/GCodes Time In: 1000 Time Out: 1100 Total Billed Treatment Time: 60 Total Billed Treatment 1 visit FA 10' GT 20' EX 30' COMFORT GONSALES PT November 07, 2016 11:03
[2016-11-07] MEDS: ARFORMOTEROL 15 MCG/2 ML (BROVANA) INH SOLUTIION IH SCH ×2 (14:19→21:12)
[2016-11-07] MEDS: RT-BUDESONIDE NEBS 0.5 MG/2ML (PULMICORT) AMP INH SCH ×2 (14:19→21:12)
--- NOTE | 2016-11-07 14:32 | Occupational Ther Daily Note ---
OT Current Status-Daily Note Subjective Pt. does not report pain. Appearance Pt. up in chair. Agrees to work with OT. Requires constant cues and instruction. Mental Status/Objective Patient Orientation: Unable to Assess Functional [place] Measure 0=Not Assessed/NA 4=Minimal Assistance 1=Total Assistance 5=Supervision or Setup 2=Maximal Assistance 6=Modified [place] 3=Moderate Assistance 7=Complete [place] ADL-Treatment Functional [place] Measure 0=Not Assessed/NA 4=Minimal Assistance 1=Total Assistance 5=Supervision or Setup 2=Maximal Assistance 6=Modified [place] 3=Moderate Assistance 7=Complete IndependenceIRFPAI Quality Coding Scale 6 Independent with activity with or without an assistive device 5 Patient requires set up or clean up by helper. Patient completes activity by themselves 4 Supervision or touching assist (CGA). [place] provide cues , steadying assist 3 The helper provides less than half the effort to complete the activity 2 The helper provides more than half the effort to complete the activity 1 Dependent. The helper does all the effort to complete an activity 7 Patient refused to complete or attempt activity 9 The patient did not perform the activity before the current illness or injury 88 Not attempted due to Medical conditions or safety concerns Other Treatment Pt. on oxygen. OT assisted pt. to therapy gym with CGA. OT pushed oxygen tank. Pt. completed 11 minutes on armbike to increase overall strength and endurance. Tolerated this well. Pt. has difficulty understanding what OT is saying, such as pushing chair back from table. OT did this for him. Pt. ambulated back to room with CGA. All needs met in room. Education OT Patient Education: Correct positioning, Progress toward Goal/Update tx plan , Purpose of tx/functional activities, Reviewed precautions, Rehab process, Transfer techniques Teaching Recipient: Patient Teaching Methods: Demonstration, Discussion Response to Teaching: Verbalize Understanding, Return Demonstration OT Short Term Goals Short Term Goals Time Frame: November 11, 2016 Bathing(FIM): 4 Lower Body Dressing(FIM): 4 Toileting(FIM): 4 Transfers (B,C,W/C) (FIM): 4 (CGA) 1=Demonstrate adherence to instructed precautions during ADL tasks. 2=Patient will verbalize/demonstrate understanding of assistive devices/ modifications for ADL. 3=Patient will improve strength/tolerance for activity to enable patient to perform ADL's. OT Prison Goals Prison Goals Time Frame: November 25, 2016 Eating (FIM): 6 Eating (QC): 6 Groomin Oral Hygiene (QC): 6 Bathing(FIM): 5 Shower/Bathe Self (QC): 5 Upper Body Dressing(FIM): 5 Upper Body Dressing (QC): 5 Lower Body Dressing(FIM): 5 Lower Body Dressing (QC): 5 On/Off Footwear (QC): 5 Toileting(FIM): 5 Toileting Hygiene (QC): 5 Toilet/Commode Transfer(FIM): 5 Toilet/Commode Transfer (QC): 5 Shower Transfer(FIM): 5 Additional Goals: 1-Demonstrate ADL Tasks, 2-Verbalize Understanding, 3- ImproveStrength/Issa 1=Demonstrate adherence to instructed precautions during ADL tasks. 2=Patient will verbalize/demonstrate understanding of assistive devices/ modifications for ADL. 3=Patient will improve strength/tolerance for activity to enable patient to perform ADL's. OT Education/Plan Problem List/Assessment Assessment: Decreased Activ Tolerance, Decreased Safety Aware, Decreased UE Strength, Dependent Transfers, Impaired Bed Mobility, Impaired Cognition, Impaired I ADL's, Impaired Self-Care Skills Pt to benefit from skilled OT intervention for ADL training, transfers, strengthening, and safety education to maximize level of function and allow safe return home with family support. Discharge Recommendations Plan/Recommendations: Continue POC Therapy D/C Recommendations: Assisted Living, Occupational Therapy Home Care, Scheduled Assistance Barriers to Progress [place], cognition Treatment Plan/Plan of Care Treatment,Training & Education: Yes Patient would benefit from OT for education, treatment and training to promote independence in ADL's, mobility, safety and/or upper extremity function for ADL' s. Plan of Care: ADL Retraining, Functional Mobility, Group Exercise/Act as Ind, UE Funct Exercise/Act, UE Neuromus Re-Ed/Coord Treatment Duration: November 25, 2016 Visits Per Week: 10-12 Minutes/Day (M-F): 60-90 Minutes/Day (Sat/[place]): PRN Agreement: Yes Rehab Potential: Fair Time/GCodes Start Time: 13:35 Stop Time: 14:05 Total Time Billed (hr/min): 30 Billed Treatment Time 1, EX x 2 BEHZAD SHAFFER OT November 07, 2016 14:32
--- NOTE | 2016-11-07 14:51 | Physical Therapy Daily Note ---
PT Daily Note-Current Subjective Patient agrees to PT. No c/o at this time. Pain Numeric Pain Scale: 0-No Pain Location: No Pain Reported Mental Status Patient Orientation: Normal For Age Attachments: Oxygen Transfers Functional [place] Measure 0=Not Assessed/NA 4=Minimal Assistance 1=Total Assistance 5=Supervision or Setup 2=Maximal Assistance 6=Modified [place] 3=Moderate Assistance 7=Complete IndependenceIRFPAI Quality Coding Scale 6 Independent with activity with or without an assistive device 5 Patient requires set up or clean up by helper. Patient completes activity by themselves 4 Supervision or touching assist (CGA). [place] provide cues , steadying assist 3 The helper provides less than half the effort to complete the activity 2 The helper provides more than half the effort to complete the activity 1 Dependent. The helper does all the effort to complete an activity 7 Patient refused to complete or attempt activity 9 The patient did not perform the activity before the current illness or injury 88 Not attempted due to Medical conditions or safety concerns Transfers (B, C, W/C) (FIM): 5 Scootin Sit to/from Stand: 5 Sit to Stand (QC): 5 patient is SBA with sit to stand transfers from toilet, recliner and regular chair. Gait Training Does the Patient Walk?: Yes Gait (FIM): 4 Distance (FIM): 3=150 ft Distance: 300' x 4 Walk 10 feet (QC): 4 Walk 50 ft with 2 Turns(QC): 4 Walk 150 ft (QC): 4 Walking 10ft/uneven surface-QC: 4 Gait Level of Assist: 4 Gait Persons Needed: 1 Gait Assistive Device: FWW marching, shuffle gait sequence Exercises Seated Therapy Exercises: Ankle pumps, Long arc quads Seated Reps: 20 Assessment Patient tolerated treatment and requires recovery periods due to increase SOA. Patient is on O2 continuously 4-5L. PT to increase activity as tolerated by patient. PT Short Term Goals Short Term Goals Time Frame: November 11, 2016 Transfers (B,C,W/C) (FIM): 4 (CGA) Gait (FIM): 4 (CGA) Gait Distance Comment: 150' Gait Level of Assist: 4 (CGA) Gait Assistive Device: FWW Wheelchair Distance: 150' PT Parts Classifier Goals Parts Classifier Goals PT Correction Goals Time Frame: November 25, 2016 Transfers (B,C,W/C) (FIM): 5 Sit to Lying (QC): 4 Lying-Sitting on Side/Bed(QC): 5 Sit to Stand (QC): 4 Rollin Roll Left to Right (QC): 4 Chair/Azi-am-Ndskv Xfer(QC): 4 Car Transfer (QC): 4 Gait (FIM): 5 Distance: 200' Walk 10 feet (QC): 4 Walk 10ft-Uneven Surface(QC): 4 Walk 50ft with 2 Turns (QC): 4 Walk 150 ft (QC): 4 Gait Level of Assist: 5 Gait Assistive Device: FWW Stairs (FIM): 2 # of Steps: 4 1 Step (curb) (QC): 4 4 Steps (QC): 4 12 Steps (QC): 88 Stairs Level Of Assist: 4 (CGA) Picking up an Object (QC): 88 PT Plan Treatment/Plan Treatment Plan: Continue Plan of Care Treatment Plan: Bed Mobility, Education, Functional Activity [place], Functional Strength, Group Therapy, Gait, Safety, Therapeutic Exercise, Transfers Treatment Duration: November 25, 2016 Visits Per Week: 10-11 Minutes/Day (M-F): 60-90 Minutes/Day (Sat/[place]gu[place]): 15-30 Time/GCodes Time In: 1410 Time Out: 1440 Total Billed Treatment Time: 30 Total Billed Treatment 1 visit GT x 2 30 min MAURICE MICHEL PT November 07, 2016 14:51
[2016-11-07] MEDS: warFARin 7.5 MG (COUMADIN) TAB PO SCH (16:55)
[2016-11-07 18:00] VITALS: BP 115/76
[2016-11-07] MEDS: ATORVASTATIN 40 MG (LIPITOR) TABLET PO SCH (20:53)
[2016-11-07] MEDS: DONEPEZIL 10 MG (ARICEPT) TAB PO SCH (20:53)
[2016-11-07] MEDS: GABAPENTIN 300 MG (NEURONTIN) CAP PO SCH (20:53)
[2016-11-07] MEDS: LATANOPROST 0.005% (XALATAN) OPHTH SOLN 2.5 ML OU SCH (20:54)
--- NOTE | 2016-11-07 22:06 | Individualized Plan of Care ---
Individualized Plan of Care Rehab Nursing IPOC Order Admission Date November 04, 2016 at 12:17 Current Orders Orders Patient Visit (11/07/16 ) Functional Activities, Ea 15 (11/07/16 ) Gait Training, Ea 15 Min (11/07/16 ) Exercise Therap, Ea 15 Min (11/07/16 ) Atorvastatin Tablet (Lipitor) (11/07/16 21:00) Patient Visit (11/07/16 ) Gait Training, Ea 15 Min (11/07/16 ) Toilet every (bladder): (hrs): 2 HOURS WHILE awake prn PT IPOC Problem List: Activity Tolerance, Functional Strength, Safety, Balance, Gait, Transfer, Bed Mobility, ROM Treatment Plan: Continue Plan of Care Bed Mobility, Education, Functional Activity [place], Functional Strength, Group Therapy, Gait, Safety, Therapeutic Exercise, Transfers Treatment Duration: November 25, 2016 Visits Per Week: 10-11 Minutes/Day (M-F): 60-90 Minutes/Day (Sat/Holguin): 15-30 OT IPOC Problems: Decreased Activ Tolerance, Decreased Safety Aware, Decreased UE Strength, Dependent Transfers, Impaired Bed Mobility, Impaired Cognition, Impaired I ADL's, Impaired Self-Care Skills OT Problems Pt to benefit from skilled OT intervention for ADL training, transfers, strengthening, and safety education to maximize level of function and allow safe return home with family support. Plan of Care: ADL Retraining, Functional Mobility, Group Exercise/Act as Ind, UE Funct Exercise/Act, UE Neuromus Re-Ed/Coord Treatment Duration: November 25, 2016 Visits Per Week: 10-12 Minutes/Day (M-F): 60-90 Minutes/Day (Sat/Holgu[place]): PRN Physician IPOC Medical Issues being managed closely and that require the 24 hour availability of a physician:stroke autumn Justin Medical Issues: Falls Precautions, Infection Protection, Other (List) (as per above) Brief Synthesis of Preadmission Screen, Post-Admission Evaluation, and Therapy Evaluations:81 yo male s/p stroke referred to IRU for ongoing Stroke rehab Has HX of Autumn Justin Medical Prognosis: good Anticipated Length of Stay: 11/25/16 Rehab Goals Modified Independent to supervision for adls and mobility skills Anticipated discharge destinat: Home with family and [facility] MERVIN LEE MD November 07, 2016 22:06
[2016-11-08] MEDS: RT-ALBUTEROL/IPRATROPIUM 3 ML (DUONEB) VIAL INH SCH ×4 (03:05→20:00)
[2016-11-08 05:58] VITALS: BP 103/95
[2016-11-08 06:26] LABS: INR 1.9 (0.8-1.4); PROTHROMBIN TIME PATIENT 21.7 SEC (12.2-14.7)
[2016-11-08] MEDS: inSUlin ASPART (NovoLOG) 1 UNIT/0.01 ML (CHARGE PER UNIT) SC SCH ×4 (06:28→20:37)
[2016-11-08] MEDS: CALCIUM ACETATE 667 MG PO SCH ×2 (06:54→15:59)
[2016-11-08] MEDS: FOLIC ACID 1 MG TAB PO SCH (06:54)
[2016-11-08] MEDS: OMEPRAZOLE 20 MG (PriLOSEC) CAP NON-FORMULARY PO SCH (06:54)
[2016-11-08] MEDS: ARFORMOTEROL 15 MCG/2 ML (BROVANA) INH SOLUTIION IH SCH ×2 (07:10→20:02)
[2016-11-08] MEDS: RT-BUDESONIDE NEBS 0.5 MG/2ML (PULMICORT) AMP INH SCH ×2 (07:10→20:02)
--- NOTE | 2016-11-08 07:55 | Progress Note (SOAP) ---
Subjective Subjective/Events-last exam CVA. Patient was less confused today. patient can answer most questions today Objective Exam Vital Signs Date Time Temp Pulse Resp B/P (MAP) Pulse Ox O2 Delivery O2 Flow Rate FiO2 11/08/16 07:15 94 4.00 11/08/16 07:10 96 4.50 11/08/16 05:58 96.3 92 18 103/95 90 Nasal Cannula 11/08/16 03:05 93 4.50 11/07/16 21:18 93 4.50 11/07/16 21:12 94 4.50 11/07/16 20:55 3.00 11/07/16 18:00 98.9 89 18 115/76 94 Nasal Cannula 3.00 11/07/16 09:00 4.00 I & O 11/08/16 07:00 Intake Total 770 ml Output Total 1 ml Balance 769 ml Capillary Refill : General Appearance: No Apparent Distress, WD/WN HEENT: Normal ENT Inspection Neck: Normal Inspection Respiratory: Chest Non Tender, Normal Breath Sounds, No Accessory Muscle Use, No Respiratory Distress Cardiovascular: No Murmur Gastrointestinal: soft Results Lab Laboratory Tests 11/07/16 09:34: Glucometer 90 11/07/16 14:30: Glucometer 121H 11/07/16 20:55: Glucometer 127H 11/08/16 04:33: Glucometer 93 11/08/16 05:59: Prothrombin Time 21.7H, INR Comment 1.9H Assessment/Plan Assessment/Plan Assess & Plan/Chief Complaint CVA. COPD. Parkinson disease. DVT. Dementia.. Patient on 3 L of oxygen. Patient slept well last night. . 11/08/16. CVA. COPD. Parkinson disease. DVT. Dementia. Patient has less confusion today Clinical Quality Measures DVT/VTE Risk/Contraindication: Risk Factor Score Per Nursin RFS Level Per Nursing on Admit: 4+=Very High [place] KIM DO November 08, 2016 07:55
[2016-11-08] MEDS: CYANOCOBALAMIN 500 MCG TAB (VITAMIN B-12) PO SCH (08:52)
[2016-11-08] MEDS: SINEMET 25/250 (CARBIDOPA/LEVODOPA) TAB PO SCH ×4 (08:52→20:29)
[2016-11-08] MEDS: LORATADINE (CLARITIN) 10 MG TAB PO SCH (08:52)
[2016-11-08] MEDS: MAGNESIUM OXIDE (MAG-OX)400 MG TAB PO SCH (08:52)
[2016-11-08] MEDS: ASPIRIN 81 MG CHEW (CHILDREN'S ASA) PO SCH (08:52)
[2016-11-08] MEDS: FLUTICASONE NASAL SPRAY (FLONASE) 16 GM BTL NS SCH (08:53)
[2016-11-08] MEDS: lisINopril 5 MG (PRINIVIL) TABLET PO SCH (08:59)
[2016-11-08 09:00] VITALS: BP 100/63
--- NOTE | 2016-11-08 10:47 | Occupational Ther Daily Note ---
OT Current Status-Daily Note Subjective Pt seen in room, up in recliner finishing breakfast. No pain mentioned. Appearance Alert, cooperative. Oriented to year, location Mental Status/Objective Functional [place] Measure 0=Not Assessed/NA 4=Minimal Assistance 1=Total Assistance 5=Supervision or Setup 2=Maximal Assistance 6=Modified [place] 3=Moderate Assistance 7=Complete [place] ADL-Treatment Pt stood to toilet and started to walk to the bathroom without holding on to FWW , which was in front of him. Walked to and from bathroom with CGA, FWW. Functional [place] Measure 0=Not Assessed/NA 4=Minimal Assistance 1=Total Assistance 5=Supervision or Setup 2=Maximal Assistance 6=Modified [place] 3=Moderate Assistance 7=Complete IndependenceIRFPAI Quality Coding Scale 6 Independent with activity with or without an assistive device 5 Patient requires set up or clean up by helper. Patient completes activity by themselves 4 Supervision or touching assist (CGA). [place] provide cues , steadying assist 3 The helper provides less than half the effort to complete the activity 2 The helper provides more than half the effort to complete the activity 1 Dependent. The helper does all the effort to complete an activity 7 Patient refused to complete or attempt activity 9 The patient did not perform the activity before the current illness or injury 88 Not attempted due to Medical conditions or safety concerns Grooming (FIM): 5 (Supervision to stand at sink and wash hands. SBA, FWW.) Upper Body (FIM): 4 (Pt needed initiation cue to take thirt off but did not need assistance. Could orient t-shirt and pullover shirt and complete all steps except had difficulty initiating L hand into t-shirt and into pullover shirt, requiring min assistance. Supervision requiring for all steps for safety.) Lower Body Dressing (FIM): 3 (Pt was able to get socks off but was unable to put socks or shoes on. Sequenced all steps of lower body dressing correctly, including putting belt in belt loops, but was unable to problem-solve getting L fot into jeans, requiring min assistance. Stood SBA, FWW to pull pants up, with cues for hand placement. Fastened pants and belt with SBA. Supervision requiring for all steps for safety.) Toileting (FIM): 3 (Pt was able to manage clothing but needed help to finishing wiping. He also had difficulty getting toilet paper in the toilet ( dropped it down in his jeans). Tall toilet, grab bar, FWW) Toilet/Commode Transfer (FIM): 4 (Physical assistance for hand placement, getting on and off tall toilet, grab bars, FWW. Cues to use FWW. ) Pt was left up in recliner, chair alarm on, all needs met. All ADLs took longer than usual Education OT Patient Education: Modified ADL techniques, Purpose of tx/functional activities, Safety issues, Transfer techniques Teaching Recipient: Patient Teaching Methods: Demonstration, Discussion Response to Teaching: Verbalize Understanding, Return Demonstration, Reinforcement Needed OT Short Term Goals Short Term Goals Time Frame: November 11, 2016 Bathing(FIM): 4 Lower Body Dressing(FIM): 4 Toileting(FIM): 4 Transfers (B,C,W/C) (FIM): 4 (CGA) 1=Demonstrate adherence to instructed precautions during ADL tasks. 2=Patient will verbalize/demonstrate understanding of assistive devices/ modifications for ADL. 3=Patient will improve strength/tolerance for activity to enable patient to perform ADL's. OT Usp Goals Usp Goals Time Frame: November 25, 2016 Eating (FIM): 6 Eating (QC): 6 Groomin Oral Hygiene (QC): 6 Bathing(FIM): 5 Shower/Bathe Self (QC): 5 Upper Body Dressing(FIM): 5 Upper Body Dressing (QC): 5 Lower Body Dressing(FIM): 5 Lower Body Dressing (QC): 5 On/Off Footwear (QC): 5 Toileting(FIM): 5 Toileting Hygiene (QC): 5 Toilet/Commode Transfer(FIM): 5 Toilet/Commode Transfer (QC): 5 Shower Transfer(FIM): 5 Additional Goals: 1-Demonstrate ADL Tasks, 2-Verbalize Understanding, 3- ImproveStrength/Issa 1=Demonstrate adherence to instructed precautions during ADL tasks. 2=Patient will verbalize/demonstrate understanding of assistive devices/ modifications for ADL. 3=Patient will improve strength/tolerance for activity to enable patient to perform ADL's. OT Education/Plan Problem List/Assessment Pt to benefit from skilled OT intervention for ADL training, transfers, strengthening, and safety education to maximize level of function and allow safe return home with family support. Discharge Recommendations Plan/Recommendations: Continue POC Treatment Plan/Plan of Care Patient would benefit from OT for education, treatment and training to promote independence in ADL's, mobility, safety and/or upper extremity function for ADL' s. Plan of Care: ADL Retraining, Functional Mobility, Group Exercise/Act as Ind, UE Funct Exercise/Act, UE Neuromus Re-Ed/Coord Treatment Duration: November 25, 2016 Visits Per Week: 10-12 Minutes/Day (M-F): 60-90 Minutes/Day (Sat/[place]): PRN Agreement: Yes Rehab Potential: Fair Time/GCodes Start Time: 08:30 Stop Time: 09:30 Total Time Billed (hr/min): 60 Billed Treatment Time visit, 60 minutes ADL KM RODRIGUEZ OT November 08, 2016 10:47
--- NOTE | 2016-11-08 11:14 | ST Cognitive Linguistic Eval ---
Speech Evaluation-General Medical Diagnosis CVA Onset Date: November 04, 2016 Therapy Diagnosis Therapy Diagnosis: Moderate Cognitive Impairment Precautions Precautions/Isolations: Fall Prevention, Standard Precautions Referral Referring Physician: Dr. Apolinar Ortega Reason for Referral: Evaluation/Treatment Cognitive Evaluation Medical History Pertinent Medical History: COPD, DM, Dementia, GERD, HTN, Parkinson's Reviewed History: Yes Social History Current Living Status: Alone (Daughter states family stays with pt at night. He is home alone sometimes during the day) Speech PLF-Current Status Prior Level of Function The patient was unable to provide prior level of function information to the clinician. Subjective The patient was recently admitted to [facility] following a CVA. The patient greeted the clinician appropriately and was agreeable to participation in the cognitive assessment. Language Eval: Auditory Comprehends Simple Yes/No Ques: Functional Indent/Objects Multiple [place]: Functional Ident/Pics in Multiple [place]: Functional Follows 1-Step Commands: Mild (Repetition required for improved accuracy.) Follows Complex Directions: Moderate Follows General Conversations: Moderate (To note, the patient is hard of hearing.) Language Eval: Verbal Language Completes Spontaneous Greeting: Functional Produces Auto, Serial Info: Mild Imitates Simple Words/Phrases: Mild Word Finding: Moderate Requests Basic Needs: Mild States Basic Personal Info: Mild Expresses Complex Ideas: Moderate Cognitive Patient Orientation The patient was oriented to place, city, day, month, and date. The patient required mild clinician cueing for accurate year identification. Objective Cognitive Domain Attention: Mild Memory: Moderate Problem Solving: Moderate Objective Impression The patient demonstrated moderate cognitive impairments in the areas of memory, problem solving, and attention. Communication/Social Cognition Comprehension: 2 Expression: 3 Social Interaction: 3 Problem Solvin Memory: 2 Speech Patient Assess Expression of Ideas/Wants: Frequently (2) Understanding [place] Content: Sometimes Understands(2) Brief Interview-Mental Status: Yes Repetition of Three Words: Three (3) Temporal Orientation: Year: Missed by 2-5 years (1) Temporal Orientation: Month: Accurate within 5 days(2) Temporal Orientation: Day: Correct (1) Recall : Wear to say "Sock": No, could not recall (0) Recall : Color: Yes, after cueing (1) Recall : Bed: No, could not recall (0) Speech Short Term Goals Short Term Goals Short Term Goals 1. The patient will demonstrate 80% accuracy with simple orientation questions with the use of an external aid. 2. The patient will display 80% accuracy with functional safety problem solving with mild clinician verbal cueing. 3. The patient will demonstrate and recall two memory strategies for use at home with mild clinician verbal cueing. Time Frame-STG: Two Weeks Speech Mcfp Goals Manager Icu Goals 1. The patient will demonstrate improved cognitive linguistic skills for increased function and safety with ADL's. Time Frame: Four Weeks Comprehension: 3 Expression: 4 Social Interaction: 4 Problem Solvin Memory: 3 Speech-Plan Treatment Plan Speech Therapy Treatment Plan: Continue Plan of Care Continue skilled speech pathology intervention for improved safety and function with ADL's. Treatment Duration: Dec 06, 2016 # of days/week Four to five. Visits Per Week: Four to five. Minutes/Day (M-F): 30 Rehab Potential: Guarded Safety Risks/Education Teaching Recipient: Patient Teaching Methods: Discussion Response to Teaching: Reinforcement Needed Education Topics Provided: Results, Recommendations, Plan of Care Time Speech Therapy Time In: 08:15 Speech Therapy Time Out: 08:30 Total Billed Time: 15 Billed Treatment Time 1, MARIA FERNANDA PAK November 08, 2016 11:14
--- NOTE | 2016-11-08 11:18 | Physical Therapy Daily Note ---
PT Daily Note-Current Subjective Patient states he is tired, however, agrees to PT. Pain Numeric Pain Scale: 0-No Pain Location: No Pain Reported Mental Status Patient Orientation: Person, Situation Attachments: Oxygen (4L) Transfers Functional [place] Measure 0=Not Assessed/NA 4=Minimal Assistance 1=Total Assistance 5=Supervision or Setup 2=Maximal Assistance 6=Modified [place] 3=Moderate Assistance 7=Complete IndependenceIRFPAI Quality Coding Scale 6 Independent with activity with or without an assistive device 5 Patient requires set up or clean up by helper. Patient completes activity by themselves 4 Supervision or touching assist (CGA). [place] provide cues , steadying assist 3 The helper provides less than half the effort to complete the activity 2 The helper provides more than half the effort to complete the activity 1 Dependent. The helper does all the effort to complete an activity 7 Patient refused to complete or attempt activity 9 The patient did not perform the activity before the current illness or injury 88 Not attempted due to Medical conditions or safety concerns Transfers (B, C, W/C) (FIM): 5 Scootin Rollin Roll Left to Right (QC): 4 Supine to/from Sit: 5 Sit to/from Stand: 5 Sit to Lying (QC): 4 Sit to Stand (QC): 5 Car Transfer (QC): 4 Gait Training Does the Patient Walk?: Yes Gait (FIM): 4 Distance (FIM): 3=150 ft Distance: 200' x 4; 400' x 1 Walk 10 feet (QC): 4 Walk 50 ft with 2 Turns(QC): 4 Walk 150 ft (QC): 4 Walking 10ft/uneven surface-QC: 4 Gait Level of Assist: 4 Gait Persons Needed: 1 Gait Assistive Device: FWW shuffle gait sequence Exercises Supine Ex: Ankle pumps, Quad Set, Heel Slides, Short Arc Quads, Straight leg raise, Hip abd/add Supine Reps: 20 (2 sets) Seated Therapy Exercises: Ankle pumps, Long arc quads, Hip flexion Seated Reps: 20 (2 sets) NuStep Minutes: 10 (to build strength and endurance to return to maximum LOF) NuStep Workload: 4 Assessment Patient is very fatigued on this date and attempts to cease treatment. After much encouragement, patient agrees to continue. PT to increase activity as tolerated. Communication is difficult due to patient's severe [place]. PT Short Term Goals Short Term Goals Time Frame: November 11, 2016 Transfers (B,C,W/C) (FIM): 4 (CGA) Gait (FIM): 4 (CGA) Gait Distance Comment: 150' Gait Level of Assist: 4 (CGA) Gait Assistive Device: FWW Wheelchair Distance: 150' PT Beef Cattle Farm Worker Goals Half-Way Goals PT Half-Way Goals Time Frame: November 25, 2016 Transfers (B,C,W/C) (FIM): 5 Sit to Lying (QC): 4 Lying-Sitting on Side/Bed(QC): 5 Sit to Stand (QC): 4 Rollin Roll Left to Right (QC): 4 Chair/Tbh-ux-Fnvnn Xfer(QC): 4 Car Transfer (QC): 4 Gait (FIM): 5 Distance: 200' Walk 10 feet (QC): 4 Walk 10ft-Uneven Surface(QC): 4 Walk 50ft with 2 Turns (QC): 4 Walk 150 ft (QC): 4 Gait Level of Assist: 5 Gait Assistive Device: FWW Stairs (FIM): 2 # of Steps: 4 1 Step (curb) (QC): 4 4 Steps (QC): 4 12 Steps (QC): 88 Stairs Level Of Assist: 4 (CGA) Picking up an Object (QC): 88 PT Plan Treatment/Plan Treatment Plan: Continue Plan of Care Treatment Plan: Bed Mobility, Education, Functional Activity [place], Functional Strength, Group Therapy, Gait, Safety, Therapeutic Exercise, Transfers Treatment Duration: November 25, 2016 Visits Per Week: 10-11 Minutes/Day (M-F): 60-90 Minutes/Day (Sat/[place]): 15-30 Time/GCodes Time In: 1000 Time Out: 1110 Total Billed Treatment Time: 70 Total Billed Treatment 1 visit GT x 2 30 min EX x 3 40 min MAURICE MICHEL PT November 08, 2016 11:18
--- NOTE | 2016-11-08 13:01 | Occupational Ther Daily Note ---
OT Current Status-Daily Note Subjective Pt seen in room, up in recliner, agreeable to OT. No pain mentioned. Appearance Alert, cooperative. Mental Status/Objective Functional [place] Measure 0=Not Assessed/NA 4=Minimal Assistance 1=Total Assistance 5=Supervision or Setup 2=Maximal Assistance 6=Modified [place] 3=Moderate Assistance 7=Complete [place] ADL-Treatment Functional [place] Measure 0=Not Assessed/NA 4=Minimal Assistance 1=Total Assistance 5=Supervision or Setup 2=Maximal Assistance 6=Modified [place] 3=Moderate Assistance 7=Complete IndependenceIRFPAI Quality Coding Scale 6 Independent with activity with or without an assistive device 5 Patient requires set up or clean up by helper. Patient completes activity by themselves 4 Supervision or touching assist (CGA). [place] provide cues , steadying assist 3 The helper provides less than half the effort to complete the activity 2 The helper provides more than half the effort to complete the activity 1 Dependent. The helper does all the effort to complete an activity 7 Patient refused to complete or attempt activity 9 The patient did not perform the activity before the current illness or injury 88 Not attempted due to Medical conditions or safety concerns Other Treatment Pt did 10 reps bilat UE exercise with 2# weight, to strengthen arms to assist with transfers and standing during ADLs. Pt needed occasional skilled physical and visual cues to do exercises correctly. He also did 10 reps bilat UE ex with yellow theraband (gentle resistance). He had some difficulty switching sides but could generally track reps, with visual cues. Communication is sometimes difficult due to [id number]. Pt left up in recliner, chair alarm on, all needs met. Education OT Patient Education: Exercise program, Purpose of tx/functional activities Teaching Recipient: Patient Teaching Methods: Demonstration, Discussion Response to Teaching: Reinforcement Needed OT Short Term Goals Short Term Goals Time Frame: November 11, 2016 Bathing(FIM): 4 Lower Body Dressing(FIM): 4 Toileting(FIM): 4 Transfers (B,C,W/C) (FIM): 4 (CGA) 1=Demonstrate adherence to instructed precautions during ADL tasks. 2=Patient will verbalize/demonstrate understanding of assistive devices/ modifications for ADL. 3=Patient will improve strength/tolerance for activity to enable patient to perform ADL's. OT Prison Goals Theater Usher Goals Time Frame: November 25, 2016 Eating (FIM): 6 Eating (QC): 6 Groomin Oral Hygiene (QC): 6 Bathing(FIM): 5 Shower/Bathe Self (QC): 5 Upper Body Dressing(FIM): 5 Upper Body Dressing (QC): 5 Lower Body Dressing(FIM): 5 Lower Body Dressing (QC): 5 On/Off Footwear (QC): 5 Toileting(FIM): 5 Toileting Hygiene (QC): 5 Toilet/Commode Transfer(FIM): 5 Toilet/Commode Transfer (QC): 5 Shower Transfer(FIM): 5 Comprehension(FIM): 3 Expression (FIM): 4 Social Interaction(FIM): 4 Problem Solving(FIM): 3 Memory(FIM): 3 Additional Goals: 1-Demonstrate ADL Tasks, 2-Verbalize Understanding, 3- ImproveStrength/Issa 1=Demonstrate adherence to instructed precautions during ADL tasks. 2=Patient will verbalize/demonstrate understanding of assistive devices/ modifications for ADL. 3=Patient will improve strength/tolerance for activity to enable patient to perform ADL's. OT Education/Plan Problem List/Assessment Pt to benefit from skilled OT intervention for ADL training, transfers, strengthening, and safety education to maximize level of function and allow safe return home with family support. Discharge Recommendations Plan/Recommendations: Continue POC Treatment Plan/Plan of Care Patient would benefit from OT for education, treatment and training to promote independence in ADL's, mobility, safety and/or upper extremity function for ADL' s. Plan of Care: ADL Retraining, Functional Mobility, Group Exercise/Act as Ind, UE Funct Exercise/Act, UE Neuromus Re-Ed/Coord Treatment Duration: November 25, 2016 Visits Per Week: 10-12 Minutes/Day (M-F): 60-90 Minutes/Day (Sat/[place]): PRN Agreement: Yes Rehab Potential: Guarded Time/GCodes Start Time: 11:30 Stop Time: 12:00 Total Time Billed (hr/min): 30 Billed Treatment Time visit, 30 minutes exercise KM RODRIGUEZ OT November 08, 2016 13:01
--- NOTE | 2016-11-08 13:47 | Physical Therapy Daily Note ---
PT Daily Note-Current Subjective Patient agrees to PT. Pain Numeric Pain Scale: 0-No Pain Location: No Pain Reported Mental Status Patient Orientation: Person, Time Transfers Functional [place] Measure 0=Not Assessed/NA 4=Minimal Assistance 1=Total Assistance 5=Supervision or Setup 2=Maximal Assistance 6=Modified [place] 3=Moderate Assistance 7=Complete IndependenceIRFPAI Quality Coding Scale 6 Independent with activity with or without an assistive device 5 Patient requires set up or clean up by helper. Patient completes activity by themselves 4 Supervision or touching assist (CGA). [place] provide cues , steadying assist 3 The helper provides less than half the effort to complete the activity 2 The helper provides more than half the effort to complete the activity 1 Dependent. The helper does all the effort to complete an activity 7 Patient refused to complete or attempt activity 9 The patient did not perform the activity before the current illness or injury 88 Not attempted due to Medical conditions or safety concerns Exercises Supine Ex: Ankle pumps, Quad Set, Short Arc Quads Supine Reps: 15 Seated Therapy Exercises: Ankle pumps, Long arc quads Seated Reps: 15 Assessment Patient appears very fatigued this p.m. and tolerates minimal activity. PT Short Term Goals Short Term Goals Time Frame: November 11, 2016 Transfers (B,C,W/C) (FIM): 4 (CGA) Gait (FIM): 4 (CGA) Gait Distance Comment: 150' Gait Level of Assist: 4 (CGA) Gait Assistive Device: FWW Wheelchair Distance: 150' PT Shooting Gallery Operator Goals Shooting Gallery Operator Goals PT Shooting Gallery Operator Goals Time Frame: November 25, 2016 Transfers (B,C,W/C) (FIM): 5 Sit to Lying (QC): 4 Lying-Sitting on Side/Bed(QC): 5 Sit to Stand (QC): 4 Rollin Roll Left to Right (QC): 4 Chair/Cpb-uq-Jfzbz Xfer(QC): 4 Car Transfer (QC): 4 Gait (FIM): 5 Distance: 200' Walk 10 feet (QC): 4 Walk 10ft-Uneven Surface(QC): 4 Walk 50ft with 2 Turns (QC): 4 Walk 150 ft (QC): 4 Gait Level of Assist: 5 Gait Assistive Device: FWW Stairs (FIM): 2 # of Steps: 4 1 Step (curb) (QC): 4 4 Steps (QC): 4 12 Steps (QC): 88 Stairs Level Of Assist: 4 (CGA) Picking up an Object (QC): 88 PT Plan Treatment/Plan Treatment Plan: Continue Plan of Care Treatment Plan: Bed Mobility, Education, Functional Activity [place], Functional Strength, Group Therapy, Gait, Safety, Therapeutic Exercise, Transfers Treatment Duration: November 25, 2016 Visits Per Week: 10-11 Minutes/Day (M-F): 60-90 Minutes/Day (Sat/[place]): 15-30 Time/GCodes Time In: 1320 Time Out: 1340 Total Billed Treatment Time: 20 Total Billed Treatment 1 visit EX 20 min MAURICE MICHEL PT November 08, 2016 13:46
[2016-11-08 18:01] VITALS: BP 117/71
[2016-11-08] MEDS: warFARin 5 MG (COUMADIN) TAB PO SCH (18:22)
[2016-11-08] MEDS: ATORVASTATIN 40 MG (LIPITOR) TABLET PO SCH (20:29)
[2016-11-08] MEDS: DONEPEZIL 10 MG (ARICEPT) TAB PO SCH (20:29)
[2016-11-08] MEDS: GABAPENTIN 300 MG (NEURONTIN) CAP PO SCH (20:29)
[2016-11-08] MEDS: LATANOPROST 0.005% (XALATAN) OPHTH SOLN 2.5 ML OU SCH (20:30)
[2016-11-09] MEDS: RT-ALBUTEROL/IPRATROPIUM 3 ML (DUONEB) VIAL INH SCH ×4 (02:10→20:02)
[2016-11-09] MEDS: CALCIUM ACETATE 667 MG PO SCH ×2 (06:19→17:07)
[2016-11-09] MEDS: FOLIC ACID 1 MG TAB PO SCH (06:19)
[2016-11-09] MEDS: OMEPRAZOLE 20 MG (PriLOSEC) CAP NON-FORMULARY PO SCH (06:19)
[2016-11-09] MEDS: inSUlin ASPART (NovoLOG) 1 UNIT/0.01 ML (CHARGE PER UNIT) SC SCH ×4 (06:19→21:22)
[2016-11-09 06:27] VITALS: BP 120/72
--- NOTE | 2016-11-09 08:45 | Progress Note (SOAP) ---
Subjective Subjective/Events-last exam CVA. Hard of hearing. Confusion Objective Exam Vital Signs Date Time Temp Pulse Resp B/P (MAP) Pulse Ox O2 Delivery O2 Flow Rate FiO2 11/09/16 06:27 97.9 84 18 120/72 94 Nasal Cannula 3.00 11/09/16 02:10 90 3.00 11/08/16 20:10 3.00 11/08/16 20:06 3.00 11/08/16 20:02 86 11/08/16 18:01 97.4 92 16 117/71 91 11/08/16 14:33 94 3.00 11/08/16 09:10 3.00 11/08/16 09:00 100/63 I & O 11/09/16 07:00 Intake Total 920 ml Balance 920 ml Capillary Refill : General Appearance: No Apparent Distress, WD/WN HEENT: Normal ENT Inspection Neck: Normal Inspection Results Lab Laboratory Tests 11/08/16 09:31: Glucometer 121H 11/08/16 14:29: Glucometer 122H 11/08/16 20:12: Glucometer 128H 11/09/16 06:12: Glucometer 112H Assessment/Plan Assessment/Plan Assess & Plan/Chief Complaint CVA. COPD. Parkinson disease. DVT. Dementia.. Patient on 3 L of oxygen. Patient slept well last night. . 11/08/16. CVA. COPD. Parkinson disease. DVT. Dementia. Patient has less confusion today. . 11/09/16. CVA. COPD. Parkinson disease. DVT. Dementia. Noa of hearing Clinical Quality Measures DVT/VTE Risk/Contraindication: Risk Factor Score Per Nursin RFS Level Per Nursing on Admit: 4+=Very High [place] KIM DO November 09, 2016 08:45
[2016-11-09] MEDS: ARFORMOTEROL 15 MCG/2 ML (BROVANA) INH SOLUTIION IH SCH ×2 (09:47→20:02)
[2016-11-09] MEDS: RT-BUDESONIDE NEBS 0.5 MG/2ML (PULMICORT) AMP INH SCH ×2 (09:49→20:02)
[2016-11-09] MEDS: MAGNESIUM OXIDE (MAG-OX)400 MG TAB PO SCH (10:13)
[2016-11-09] MEDS: CYANOCOBALAMIN 500 MCG TAB (VITAMIN B-12) PO SCH (10:13)
[2016-11-09] MEDS: ASPIRIN 81 MG CHEW (CHILDREN'S ASA) PO SCH (10:13)
[2016-11-09] MEDS: FLUTICASONE NASAL SPRAY (FLONASE) 16 GM BTL NS SCH (10:14)
[2016-11-09] MEDS: lisINopril 5 MG (PRINIVIL) TABLET PO SCH (10:14)
[2016-11-09] MEDS: SINEMET 25/250 (CARBIDOPA/LEVODOPA) TAB PO SCH ×4 (10:14→19:58)
[2016-11-09] MEDS: LORATADINE (CLARITIN) 10 MG TAB PO SCH (10:14)
--- NOTE | 2016-11-09 10:18 | Occupational Ther Daily Note ---
OT Current Status-Daily Note Subjective Pt seen in room, asleep in bed. Easily awakened and agreeable to OT. No pain mentioned. Mental Status/Objective Functional [place] Measure 0=Not Assessed/NA 4=Minimal Assistance 1=Total Assistance 5=Supervision or Setup 2=Maximal Assistance 6=Modified [place] 3=Moderate Assistance 7=Complete [place] ADL-Treatment Pt was able to initiate dressing L arm and leg today without cues but asked questions like "What do I do next? Do I put my pants on?" throughout all of bathing and dressing process. Once told what to do, he was able to complete the steps with help listed below. All ADLs took longer than usual. bathing - washed face and hands, under arms, kelley and bottom with sponge bath, setup, supervision and close SBA when standing, FWW. Functional [place] Measure 0=Not Assessed/NA 4=Minimal Assistance 1=Total Assistance 5=Supervision or Setup 2=Maximal Assistance 6=Modified [place] 3=Moderate Assistance 7=Complete IndependenceIRFPAI Quality Coding Scale 6 Independent with activity with or without an assistive device 5 Patient requires set up or clean up by helper. Patient completes activity by themselves 4 Supervision or touching assist (CGA). [place] provide cues , steadying assist 3 The helper provides less than half the effort to complete the activity 2 The helper provides more than half the effort to complete the activity 1 Dependent. The helper does all the effort to complete an activity 7 Patient refused to complete or attempt activity 9 The patient did not perform the activity before the current illness or injury 88 Not attempted due to Medical conditions or safety concerns Eating (FIM): 5 (Pt was able to open silverware and salt but had difficulty opening milk carton. He was able to feed himself with regular silverware. ) Upper Body (FIM): 4 (Able to dress L arm without cues but needed help to get t shirt over head and unrolled so he could pull it down in back) Lower Body Dressing (FIM): 3 (Help with shoes and socks. Able to get both feet into pants today and pull them up. SBA to pull pants up but help needed to grasp zipper pull to zip up pants. Able to thread belt. Stood SBA, FWW) Toileting (FIM): 5 (Managed clothing, no hygiene needed. SBA when standing to manage clothing. Tall toilet, grab bar, FWW. Some cues for hand placement) Transfers (B, C, W/C) (FIM): 4 (Min assist to get up off bed, cues for hand placement) Toilet/Commode Transfer (FIM): 4 (Min assist for hand placement, tried to hold on to FWW when sitting down. OT placed BSC over toilet to provide arms.) Pt left up in recliner, chair alarm on, all needs met. O2 in place at 4L/min Education OT Patient Education: Modified ADL techniques, Safety issues, Transfer techniques Teaching Recipient: Patient Response to Teaching: Reinforcement Needed OT Short Term Goals Short Term Goals Time Frame: November 11, 2016 Bathing(FIM): 4 Lower Body Dressing(FIM): 4 Toileting(FIM): 4 Transfers (B,C,W/C) (FIM): 4 (CGA) 1=Demonstrate adherence to instructed precautions during ADL tasks. 2=Patient will verbalize/demonstrate understanding of assistive devices/ modifications for ADL. 3=Patient will improve strength/tolerance for activity to enable patient to perform ADL's. OT Group Home Goals Group Home Goals Time Frame: November 25, 2016 Eating (FIM): 6 Eating (QC): 6 Groomin Oral Hygiene (QC): 6 Bathing(FIM): 5 Shower/Bathe Self (QC): 5 Upper Body Dressing(FIM): 5 Upper Body Dressing (QC): 5 Lower Body Dressing(FIM): 5 Lower Body Dressing (QC): 5 On/Off Footwear (QC): 5 Toileting(FIM): 5 Toileting Hygiene (QC): 5 Toilet/Commode Transfer(FIM): 5 Toilet/Commode Transfer (QC): 5 Shower Transfer(FIM): 5 Comprehension(FIM): 3 Expression (FIM): 4 Social Interaction(FIM): 4 Problem Solving(FIM): 3 Memory(FIM): 3 Additional Goals: 1-Demonstrate ADL Tasks, 2-Verbalize Understanding, 3- ImproveStrength/Issa 1=Demonstrate adherence to instructed precautions during ADL tasks. 2=Patient will verbalize/demonstrate understanding of assistive devices/ modifications for ADL. 3=Patient will improve strength/tolerance for activity to enable patient to perform ADL's. OT Education/Plan Problem List/Assessment Pt to benefit from skilled OT intervention for ADL training, transfers, strengthening, and safety education to maximize level of function and allow safe return home with family support. Discharge Recommendations Plan/Recommendations: Continue POC Treatment Plan/Plan of Care Patient would benefit from OT for education, treatment and training to promote independence in ADL's, mobility, safety and/or upper extremity function for ADL' s. Plan of Care: ADL Retraining, Functional Mobility, Group Exercise/Act as Ind, UE Funct Exercise/Act, UE Neuromus Re-Ed/Coord Treatment Duration: November 25, 2016 Visits Per Week: 10-12 Minutes/Day (M-F): 60-90 Minutes/Day (Sat/[place]): PRN Agreement: Yes Rehab Potential: Guarded Time/GCodes Start Time: 08:30 Stop Time: 09:30 Total Time Billed (hr/min): 60 Billed Treatment Time visit, 60 minutes ADL KM RODRIGUEZ OT November 09, 2016 10:18
[2016-11-09 10:52] LABS: INR 1.9 (0.8-1.4); PROTHROMBIN TIME PATIENT 21.4 SEC (12.2-14.7)
--- NOTE | 2016-11-09 10:55 | Speech Therapy Daily Note ---
Speech Daily Progress Note Subjective The patient was seated upright in recliner upon entrance. The patient greeted the clinician appropriately and was agreeable to cognitive treatment on this date. Objective Safety Problem Solving: The patient was provided images depicting safety issues in a common home environment. The patient was asked to identify the safety issue and state a solution to the problem. The patient demonstrated fair to good accuracy with this task, requiring moderate clinician verbal cueing for complete responses. To note, the patient demonstrates difficulty hearing, requiring moderately increased volume levels for comprehension. Assessment Assessment Current Status: Fair Progress Treatment Plan Continue Plan of Care Communication Comprehension: 2 Expression: 3 Social Cognition Social Interaction: 3 Problem Solvin Memory: 2 Speech Short Term Goals Short Term Goals Short Term Goals 1. The patient will demonstrate 80% accuracy with simple orientation questions with the use of an external aid. 2. The patient will display 80% accuracy with functional safety problem solving with mild clinician verbal cueing. 3. The patient will demonstrate and recall two memory strategies for use at home with mild clinician verbal cueing. Time Frame-STG: Two Weeks Speech Fpc Goals Commercial Lease Administrator Goals 1. The patient will demonstrate improved cognitive linguistic skills for increased function and safety with ADL's. Time Frame: Four Weeks Comprehension: 3 Expression: 4 Social Interaction: 4 Problem Solvin Memory: 3 Speech-Plan Treatment Plan Speech Therapy Treatment Plan: Continue Plan of Care Continue skilled speech pathology to target functional problem solving ( cognition). Treatment Duration: Dec 06, 2016 # of days/week Four to five. Visits Per Week: Four to five. Minutes/Day (M-F): 30 Rehab Potential: Guarded Safety Risks/Education Teaching Recipient: Patient Teaching Methods: Discussion Response to Teaching: Reinforcement Needed Education Topics Provided: Orientation Strategies Time Speech Therapy Time In: 09:45 Speech Therapy Time Out: 10:15 Total Billed Time: 30 Billed Treatment Time ARACELIS Kerns ELIZABETH November 09, 2016 10:55
--- NOTE | 2016-11-09 14:39 | Occupational Ther Daily Note ---
OT Current Status-Daily Note Subjective Pt seen in room, up in recliner, agreeable to OT. No pain mentioned. Appearance Alert, cooperative, hard of hearing Mental Status/Objective Functional [place] Measure 0=Not Assessed/NA 4=Minimal Assistance 1=Total Assistance 5=Supervision or Setup 2=Maximal Assistance 6=Modified [place] 3=Moderate Assistance 7=Complete [place] ADL-Treatment Functional [place] Measure 0=Not Assessed/NA 4=Minimal Assistance 1=Total Assistance 5=Supervision or Setup 2=Maximal Assistance 6=Modified [place] 3=Moderate Assistance 7=Complete IndependenceIRFPAI Quality Coding Scale 6 Independent with activity with or without an assistive device 5 Patient requires set up or clean up by helper. Patient completes activity by themselves 4 Supervision or touching assist (CGA). [place] provide cues , steadying assist 3 The helper provides less than half the effort to complete the activity 2 The helper provides more than half the effort to complete the activity 1 Dependent. The helper does all the effort to complete an activity 7 Patient refused to complete or attempt activity 9 The patient did not perform the activity before the current illness or injury 88 Not attempted due to Medical conditions or safety concerns Other Treatment Pt did 15 reps bilat UE exercise (increased reps) with 2# weight, working on shoulders, elbows, forearms and wrists. He was able to track repetitions but needed some occasional assistance to do exercises correctly. to strengthen arms to help with standing during ADLs and transfers. Pt left up in recliner, all needs met, chair alarm on, O2 in place. Education OT Patient Education: Exercise program Teaching Recipient: Patient Response to Teaching: Return Demonstration, Reinforcement Needed OT Short Term Goals Short Term Goals Time Frame: November 11, 2016 Bathing(FIM): 4 Lower Body Dressing(FIM): 4 Toileting(FIM): 4 Transfers (B,C,W/C) (FIM): 4 (CGA) 1=Demonstrate adherence to instructed precautions during ADL tasks. 2=Patient will verbalize/demonstrate understanding of assistive devices/ modifications for ADL. 3=Patient will improve strength/tolerance for activity to enable patient to perform ADL's. OT Senior Care Goals Senior Care Goals Time Frame: November 25, 2016 Eating (FIM): 6 Eating (QC): 6 Groomin Oral Hygiene (QC): 6 Bathing(FIM): 5 Shower/Bathe Self (QC): 5 Upper Body Dressing(FIM): 5 Upper Body Dressing (QC): 5 Lower Body Dressing(FIM): 5 Lower Body Dressing (QC): 5 On/Off Footwear (QC): 5 Toileting(FIM): 5 Toileting Hygiene (QC): 5 Toilet/Commode Transfer(FIM): 5 Toilet/Commode Transfer (QC): 5 Shower Transfer(FIM): 5 Comprehension(FIM): 3 Expression (FIM): 4 Social Interaction(FIM): 4 Problem Solving(FIM): 3 Memory(FIM): 3 Additional Goals: 1-Demonstrate ADL Tasks, 2-Verbalize Understanding, 3- ImproveStrength/Issa 1=Demonstrate adherence to instructed precautions during ADL tasks. 2=Patient will verbalize/demonstrate understanding of assistive devices/ modifications for ADL. 3=Patient will improve strength/tolerance for activity to enable patient to perform ADL's. OT Education/Plan Problem List/Assessment Pt to benefit from skilled OT intervention for ADL training, transfers, strengthening, and safety education to maximize level of function and allow safe return home with family support. Discharge Recommendations Plan/Recommendations: Continue POC Treatment Plan/Plan of Care Patient would benefit from OT for education, treatment and training to promote independence in ADL's, mobility, safety and/or upper extremity function for ADL' s. Plan of Care: ADL Retraining, Functional Mobility, Group Exercise/Act as Ind, UE Funct Exercise/Act, UE Neuromus Re-Ed/Coord Treatment Duration: November 25, 2016 Visits Per Week: 10-12 Minutes/Day (M-F): 60-90 Minutes/Day (Sat/[place]): PRN Agreement: Yes Rehab Potential: Guarded Time/GCodes Start Time: 13:00 Stop Time: 13:15 Total Time Billed (hr/min): 15 Billed Treatment Time visit, 15 minutes exercise KM RODRIGUEZ OT November 09, 2016 14:39
--- NOTE | 2016-11-09 15:29 | Physical Therapy Daily Note ---
PT Daily Note-Current Subjective Pt is sitting in recliner upon arrival. Pt is PILOT STATION and needs frequent VC as reminders. Pt reports needing to use restroom to start tx. Pt agrees to PT. Pain Location: No Pain Reported Mental Status Patient Orientation: Person, Confused Attachments: Oxygen (5L) Transfers Functional [place] Measure 0=Not Assessed/NA 4=Minimal Assistance 1=Total Assistance 5=Supervision or Setup 2=Maximal Assistance 6=Modified [place] 3=Moderate Assistance 7=Complete IndependenceIRFPAI Quality Coding Scale 6 Independent with activity with or without an assistive device 5 Patient requires set up or clean up by helper. Patient completes activity by themselves 4 Supervision or touching assist ([facility]). [place] provide cues , steadying assist 3 The helper provides less than half the effort to complete the activity 2 The helper provides more than half the effort to complete the activity 1 Dependent. The helper does all the effort to complete an activity 7 Patient refused to complete or attempt activity 9 The patient did not perform the activity before the current illness or injury 88 Not attempted due to Medical conditions or safety concerns Scootin Sit to/from Stand: 4 Sit to Stand (QC): 4 Weight Bearing Weight Bearing Restriction: Full Weight Bearing Location Restriction: LE Bilateral Gait Training Does the Patient Walk?: Yes Distance (FIM): 9=745-96 ft Distance: 125' Walk 10 feet (QC): 4 Walk 50 ft with 2 Turns(QC): 4 Gait Level of Assist: 4 Gait Persons Needed: 1 Gait Assistive Device: FWW Pt has slow and shuffling gait pattern. Pt receives VC to try to diamond picker feet instead of shuffle but pt is unable to complete. Wheelchair Training Does the Pt Use a Wheelchair?: No Exercises Seated Therapy Exercises: Ankle pumps, Long arc quads, Hip flexion, Kicking activity Seated Reps: 15 NuStep Minutes: 15 NuStep Workload: 3 Treatments Pt transfers from recliner using FWW at [facility]. Pt uses restroom then ambulates in hallway to Therapy Gym using FWW at [facility]. Pt uses NuStep and completes Seated Ex to increase strength and activity tolerance. Pt returns to room to rest in recliner with all needs met at end of tx. PT assists pt with ordering lunch since pt is PILOT STATION. Assessment Current Status: Fair Progress Pt needs VC and is PILOT STATION. Pt fatigues easy and needs rest breaks. PT Short Term Goals Short Term Goals Time Frame: November 11, 2016 Transfers (B,C,W/C) (FIM): 4 (CGA) Gait (FIM): 4 (CGA) Gait Distance Comment: 150' Gait Level of Assist: 4 (CGA) Gait Assistive Device: FWW Wheelchair Distance: 150' PT Top Case Assembler Goals Top Case Assembler Goals PT Top Case Assembler Goals Time Frame: November 25, 2016 Transfers (B,C,W/C) (FIM): 5 Sit to Lying (QC): 4 Lying-Sitting on Side/Bed(QC): 5 Sit to Stand (QC): 4 Rollin Roll Left to Right (QC): 4 Chair/Onp-an-Ioowg Xfer(QC): 4 Car Transfer (QC): 4 Gait (FIM): 5 Distance: 200' Walk 10 feet (QC): 4 Walk 10ft-Uneven Surface(QC): 4 Walk 50ft with 2 Turns (QC): 4 Walk 150 ft (QC): 4 Gait Level of Assist: 5 Gait Assistive Device: FWW Stairs (FIM): 2 # of Steps: 4 1 Step (curb) (QC): 4 4 Steps (QC): 4 12 Steps (QC): 88 Stairs Level Of Assist: 4 (CGA) Picking up an Object (QC): 88 PT Plan Problem List Problem List: Activity Tolerance, Functional Strength, Safety, Balance, Gait, Transfer Treatment/Plan Treatment Plan: Continue Plan of Care Treatment Plan: Bed Mobility, Education, Functional Activity Issa, Functional Strength, Group Therapy, Gait, Safety, Therapeutic Exercise, Transfers Treatment Duration: November 25, 2016 Visits Per Week: 10-11 Minutes/Day (M-F): 60-90 Minutes/Day (Sat/Holguin): 15-30 Safety Risks/Education Patient Education: Gait Training, Transfer Techniques, Correct Positioning, Safety Issues Teaching Recipient: Patient Teaching Methods: Discussion Response to Teaching: Verbalize Understanding Time/GCodes Time In: 1045 Time Out: 1145 Total Billed Treatment Time: 60 Total Billed Treatment visit, FA X2 (30m) & EX X2 (30m) KASEY KATE CENTRAL STATION OPERATOR November 09, 2016 15:29
--- NOTE | 2016-11-09 16:18 | Physical Therapy Daily Note ---
PT Daily Note-Current Subjective Pt is sitting at EOB with OT upon arrival. OT states pt had taken himself to restroom. Pt agrees to Seated Ex for PT. Pain Location: No Pain Reported Mental Status Patient Orientation: Person, Confused Attachments: Oxygen (5L) Transfers Functional [place] Measure 0=Not Assessed/NA 4=Minimal Assistance 1=Total Assistance 5=Supervision or Setup 2=Maximal Assistance 6=Modified [place] 3=Moderate Assistance 7=Complete IndependenceIRFPAI Quality Coding Scale 6 Independent with activity with or without an assistive device 5 Patient requires set up or clean up by helper. Patient completes activity by themselves 4 Supervision or touching assist (CGA). [place] provide cues , steadying assist 3 The helper provides less than half the effort to complete the activity 2 The helper provides more than half the effort to complete the activity 1 Dependent. The helper does all the effort to complete an activity 7 Patient refused to complete or attempt activity 9 The patient did not perform the activity before the current illness or injury 88 Not attempted due to Medical conditions or safety concerns Scootin Rollin Roll Left to Right (QC): 4 Supine to/from Sit: 3 Weight Bearing Weight Bearing Restriction: Full Weight Bearing Location Restriction: LE Bilateral Exercises Seated Therapy Exercises: Ankle pumps, Long arc quads, Hip flexion, Kicking activity, Hip abd/add Seated Reps: 15 Treatments Pt completes Seated EX at EOB then transfers to Supine in bed with PT's assist. Pt is scooted up in bed and left to rest with all needs met at end of tx. Assessment Current Status: Fair Progress Pt gets confused and isn't always safe with mobility. Pt fatigues easy and needs rest breaks. PT Short Term Goals Short Term Goals Time Frame: November 11, 2016 Transfers (B,C,W/C) (FIM): 4 (CGA) Gait (FIM): 4 (CGA) Gait Distance Comment: 150' Gait Level of Assist: 4 (CGA) Gait Assistive Device: FWW Wheelchair Distance: 150' PT Intermediate Goals Jai Alai Player Goals PT Intermediate Goals Time Frame: November 25, 2016 Transfers (B,C,W/C) (FIM): 5 Sit to Lying (QC): 4 Lying-Sitting on Side/Bed(QC): 5 Sit to Stand (QC): 4 Rollin Roll Left to Right (QC): 4 Chair/Kgi-yw-Yfqbo Xfer(QC): 4 Car Transfer (QC): 4 Gait (FIM): 5 Distance: 200' Walk 10 feet (QC): 4 Walk 10ft-Uneven Surface(QC): 4 Walk 50ft with 2 Turns (QC): 4 Walk 150 ft (QC): 4 Gait Level of Assist: 5 Gait Assistive Device: FWW Stairs (FIM): 2 # of Steps: 4 1 Step (curb) (QC): 4 4 Steps (QC): 4 12 Steps (QC): 88 Stairs Level Of Assist: 4 (CGA) Picking up an Object (QC): 88 PT Plan Problem List Problem List: Activity Tolerance, Functional Strength, Safety, Balance, Gait, Transfer Treatment/Plan Treatment Plan: Continue Plan of Care Treatment Plan: Bed Mobility, Education, Functional Activity Issa, Functional Strength, Group Therapy, Gait, Safety, Therapeutic Exercise, Transfers Treatment Duration: November 25, 2016 Visits Per Week: 10-11 Minutes/Day (M-F): 60-90 Minutes/Day (Sat/Holguin): 15-30 Safety Risks/Education Patient Education: Transfer Techniques, Correct Positioning, Safety Issues Teaching Recipient: Patient Teaching Methods: Discussion Response to Teaching: Verbalize Understanding Time/GCodes Time In: 1430 Time Out: 1445 Total Billed Treatment Time: 15 Total Billed Treatment visit, EX (15m) KASEY KATE PTA November 09, 2016 16:18
[2016-11-09] MEDS: warFARin 5 MG (COUMADIN) TAB PO SCH (17:07)
[2016-11-09 18:42] VITALS: BP 102/60
[2016-11-09] MEDS: DONEPEZIL 10 MG (ARICEPT) TAB PO SCH (19:58)
[2016-11-09] MEDS: GABAPENTIN 300 MG (NEURONTIN) CAP PO SCH (19:58)
[2016-11-09] MEDS: ATORVASTATIN 40 MG (LIPITOR) TABLET PO SCH (19:58)
[2016-11-09] MEDS: LATANOPROST 0.005% (XALATAN) OPHTH SOLN 2.5 ML OU SCH (19:58)
[2016-11-10] MEDS: RT-ALBUTEROL/IPRATROPIUM 3 ML (DUONEB) VIAL INH SCH ×3 (02:16→14:44)
[2016-11-10 05:00] VITALS: BP 126/72
[2016-11-10] MEDS: FOLIC ACID 1 MG TAB PO SCH (06:04)
[2016-11-10] MEDS: OMEPRAZOLE 20 MG (PriLOSEC) CAP NON-FORMULARY PO SCH (06:04)
[2016-11-10] MEDS: CALCIUM ACETATE 667 MG PO SCH ×2 (06:04→17:18)
[2016-11-10] MEDS: inSUlin ASPART (NovoLOG) 1 UNIT/0.01 ML (CHARGE PER UNIT) SC SCH ×4 (06:50→20:32)
[2016-11-10] MEDS: ARFORMOTEROL 15 MCG/2 ML (BROVANA) INH SOLUTIION IH SCH ×2 (07:03→19:39)
[2016-11-10] MEDS: RT-BUDESONIDE NEBS 0.5 MG/2ML (PULMICORT) AMP INH SCH ×2 (07:04→19:39)
[2016-11-10] MEDS: MAGNESIUM OXIDE (MAG-OX)400 MG TAB PO SCH (07:48)
[2016-11-10] MEDS: CYANOCOBALAMIN 500 MCG TAB (VITAMIN B-12) PO SCH (07:48)
[2016-11-10] MEDS: ASPIRIN 81 MG CHEW (CHILDREN'S ASA) PO SCH (07:48)
[2016-11-10] MEDS: SINEMET 25/250 (CARBIDOPA/LEVODOPA) TAB PO SCH ×4 (07:48→20:32)
[2016-11-10] MEDS: lisINopril 5 MG (PRINIVIL) TABLET PO SCH (07:48)
[2016-11-10] MEDS: LORATADINE (CLARITIN) 10 MG TAB PO SCH (07:49)
[2016-11-10] MEDS: FLUTICASONE NASAL SPRAY (FLONASE) 16 GM BTL NS SCH (07:50)
--- NOTE | 2016-11-10 08:28 | Progress Note (SOAP) ---
Subjective Subjective/Events-last exam CVA. Confusion. Patient voices no complaints Objective Exam Vital Signs Date Time Temp Pulse Resp B/P (MAP) Pulse Ox O2 Delivery O2 Flow Rate FiO2 11/10/16 07:06 91 5.00 11/10/16 07:06 5.00 11/10/16 05:00 97.1 77 20 126/72 96 Room Air 5.00 11/10/16 02:16 90 5.00 11/09/16 20:06 5.00 11/09/16 20:02 91 5.00 11/09/16 20:00 3.00 11/09/16 18:42 99.1 76 16 102/60 90 Room Air 5.00 11/09/16 15:49 98 5.00 11/09/16 09:52 93 5.00 11/09/16 09:47 88 3.00 11/09/16 09:00 5.00 I & O 11/10/16 07:00 Intake Total 980 ml Balance 980 ml Capillary Refill : General Appearance: No Apparent Distress, WD/WN HEENT: Normal ENT Inspection Neck: Normal Inspection Respiratory: No Accessory Muscle Use, No Respiratory Distress Cardiovascular: Regular Rate, Rhythm, No Murmur (`) Gastrointestinal: non tender Results Lab Laboratory Tests 11/09/16 09:40: Glucometer 112H 11/09/16 10:34: Prothrombin Time 21.4H, INR Comment 1.9H 11/09/16 15:21: Glucometer 101 11/09/16 20:58: Glucometer 137H 11/10/16 06:41: Glucometer 100 Assessment/Plan Assessment/Plan Assess & Plan/Chief Complaint CVA. COPD. Parkinson disease. DVT. Dementia.. Patient on 3 L of oxygen. Patient slept well last night. . 11/08/16. CVA. COPD. Parkinson disease. DVT. Dementia. Patient has less confusion today. . 11/09/16. CVA. COPD. Parkinson disease. DVT. Dementia. Noa of hearing. . 11/10/16. CVA. COPD. Parkinson disease. Dementia. Patient voices no complaints today Clinical Quality Measures DVT/VTE Risk/Contraindication: Risk Factor Score Per Nursin RFS Level Per Nursing on Admit: 4+=Very High [place] KIM DO November 10, 2016 08:28
[2016-11-10 09:30] VITALS: BP 92/55
[2016-11-10 09:34] LABS: INR 1.9 (0.8-1.4); PROTHROMBIN TIME PATIENT 21.5 SEC (12.2-14.7)
--- NOTE | 2016-11-10 10:38 | Speech Therapy Daily Note ---
Speech Daily Progress Note Subjective The patient was sitting up in recliner upon entrance. The patient greeted the clinician appropriately and was agreeable to participation in cognitive therapy on this date. To note: Regardless of the breakfast tray present, the patient believed the time was 8:45pm. The patient was redirected to the correct time, however, continued to appear increasingly confused in comparison to prior sessions. Confusion did improve throughout the treatment. Objective - Assessment of Language- Related Functional Activity (YAAKOV): Functional tasks were completed on this date with fair accuracy. Results are as follows: - Telling Time: The patient was asked to read the time on an analog clock. The patient demonstrated 50% accuracy with this task, requiring moderate clinician verbal cueing throughout. - Counting Change/Money: The patient was presented with money tasks including change addition, accurate change, and bill total. The patient demonstrated 70% accuracy with this task, however, displayed moderate delay time with responses. Orientation: The patient was oriented to month and year. The patient required moderate verbal prompting for accurate identification of day and date. To note: The patient was unable to state the month at the close of the session. Assessment Assessment Current Status: Fair Progress Treatment Plan Continue Plan of Care Communication Comprehension: 3 Expression: 3 Social Cognition Social Interaction: 3 Problem Solvin Memory: 2 Speech Short Term Goals Short Term Goals Short Term Goals 1. The patient will demonstrate 80% accuracy with simple orientation questions with the use of an external aid. 2. The patient will display 80% accuracy with functional safety problem solving with mild clinician verbal cueing. 3. The patient will demonstrate and recall two memory strategies for use at home with mild clinician verbal cueing. Time Frame-STG: Two Weeks Speech Nursing Care Attendant Goals Assisted Goals 1. The patient will demonstrate improved cognitive linguistic skills for increased function and safety with ADL's. Time Frame: Four Weeks Comprehension: 3 Expression: 4 Social Interaction: 4 Problem Solvin Memory: 3 Speech-Plan Treatment Plan Speech Therapy Treatment Plan: Continue Plan of Care Continue skilled speech therapy to target improved functional cognition ( problem solving, memory). Treatment Duration: Dec 06, 2016 # of days/week Four to five. Visits Per Week: Four to five. Minutes/Day (M-F): 30 Rehab Potential: Guarded Safety Risks/Education Teaching Recipient: Patient Teaching Methods: Demonstration, Discussion Response to Teaching: Return Demonstration, Reinforcement Needed Education Topics Provided: Orientation Strategies (In-Room White Board) Time Speech Therapy Time In: 08:45 Speech Therapy Time Out: 09:15 Total Billed Time: 30 Billed Treatment Time 1, MARIA FERNANDA SALEEM November 10, 2016 10:38
--- NOTE | 2016-11-10 12:01 | Physical Therapy Daily Note ---
PT Daily Note-Current Subjective Patient agrees to PT. No c/o at this time. Pain Numeric Pain Scale: 0-No Pain Location: No Pain Reported Mental Status Patient Orientation: Person, Confused Attachments: Oxygen Transfers Functional [place] Measure 0=Not Assessed/NA 4=Minimal Assistance 1=Total Assistance 5=Supervision or Setup 2=Maximal Assistance 6=Modified [place] 3=Moderate Assistance 7=Complete IndependenceIRFPAI Quality Coding Scale 6 Independent with activity with or without an assistive device 5 Patient requires set up or clean up by helper. Patient completes activity by themselves 4 Supervision or touching assist (CGA). [place] provide cues , steadying assist 3 The helper provides less than half the effort to complete the activity 2 The helper provides more than half the effort to complete the activity 1 Dependent. The helper does all the effort to complete an activity 7 Patient refused to complete or attempt activity 9 The patient did not perform the activity before the current illness or injury 88 Not attempted due to Medical conditions or safety concerns Transfers (B, C, W/C) (FIM): 4 Scootin Sit to/from Stand: 4 Sit to Stand (QC): 4 Car Transfer (QC): 4 Gait Training Does the Patient Walk?: Yes Gait (FIM): 4 Distance (FIM): 3=150 ft Distance: 250' x 3 Walk 10 feet (QC): 4 Walk 50 ft with 2 Turns(QC): 4 Walk 150 ft (QC): 4 Gait Level of Assist: 4 Gait Persons Needed: 1 Gait Assistive Device: FWW Patient demonstrates slight shuffle gait sequence/joce with FWW use. CGA for safety concerns. Exercises Seated Therapy Exercises: Ankle pumps, Long arc quads Seated Reps: 15 NuStep Minutes: 10 (to improve cardiopulmonary function) NuStep Workload: 3 Assessment Patient progressing slowly with treatment. PT to increase activity as tolerated. Patient fatigues quickly with minimal activity. PT Short Term Goals Short Term Goals Time Frame: November 11, 2016 Transfers (B,C,W/C) (FIM): 4 (CGA) Gait (FIM): 4 (CGA) Gait Distance Comment: 150' Gait Level of Assist: 4 (CGA) Gait Assistive Device: FWW Wheelchair Distance: 150' PT Mcc Goals Mcc Goals PT High School Admissions Representative Goals Time Frame: November 25, 2016 Transfers (B,C,W/C) (FIM): 5 Sit to Lying (QC): 4 Lying-Sitting on Side/Bed(QC): 5 Sit to Stand (QC): 4 Rollin Roll Left to Right (QC): 4 Chair/Pqx-bl-Gzhjr Xfer(QC): 4 Car Transfer (QC): 4 Gait (FIM): 5 Distance: 200' Walk 10 feet (QC): 4 Walk 10ft-Uneven Surface(QC): 4 Walk 50ft with 2 Turns (QC): 4 Walk 150 ft (QC): 4 Gait Level of Assist: 5 Gait Assistive Device: FWW Stairs (FIM): 2 # of Steps: 4 1 Step (curb) (QC): 4 4 Steps (QC): 4 12 Steps (QC): 88 Stairs Level Of Assist: 4 (CGA) Picking up an Object (QC): 88 PT Plan Treatment/Plan Treatment Plan: Continue Plan of Care Treatment Plan: Bed Mobility, Education, Functional Activity Issa, Functional Strength, Group Therapy, Gait, Safety, Therapeutic Exercise, Transfers Treatment Duration: November 25, 2016 Visits Per Week: 10-11 Minutes/Day (M-F): 60-90 Minutes/Day (Sat/[place]): 15-30 Time/GCodes Time In: 1120 Time Out: 1150 Total Billed Treatment Time: 30 Total Billed Treatment 1 visit GT 15 min EX 15 min MAURICE MICHEL PT November 10, 2016 12:01
--- NOTE | 2016-11-10 12:49 | Occupational Ther Daily Note ---
OT Current Status-Daily Note Subjective Pt seen in room, up in recliner, agreeable to OT. No pain mentioned. Mental Status/Objective Patient Orientation: Person, Confused Functional [place] Measure 0=Not Assessed/NA 4=Minimal Assistance 1=Total Assistance 5=Supervision or Setup 2=Maximal Assistance 6=Modified [place] 3=Moderate Assistance 7=Complete [place] ADL-Treatment Pt had gotten syrup on his shirt earlier in the morning and shirt had been changed (and upper body washed up) so he did not want to bathe or dress. His oxygen was found on his bed (he sometimes throws it over there) and O2 sats were 85% on room air. Oxygen applied at 5L/min nc and sats slowly increased. He had some difficulty understanding that he needed to breathe in through his nose to bring sats up. His heart rate also registered about 35 on the sat monitor and was a little irregular but it also increased with oxygen. Nursing took vitals. Pt walked to bathroom with CGA, FWW to bathroom to sit on chair with arms to brush teeth.He took his dentures out but needed supervision and setup to brush them (he mixed up Fixodent and toothpaste). He did not recall that he had brushed them and did it a couple times. He needed help to take the cap off toothpaste and then didn't realize that it was off. He was unable to put Fixodent on dentures himself but could put teeth in correctly. At one point he tried to spread out Fixodent with toothbrush. Pt was unable to shave with electric razor due to oxygen usage. Functional [place] Measure 0=Not Assessed/NA 4=Minimal Assistance 1=Total Assistance 5=Supervision or Setup 2=Maximal Assistance 6=Modified [place] 3=Moderate Assistance 7=Complete IndependenceIRFPAI Quality Coding Scale 6 Independent with activity with or without an assistive device 5 Patient requires set up or clean up by helper. Patient completes activity by themselves 4 Supervision or touching assist (CGA). [place] provide cues , steadying assist 3 The helper provides less than half the effort to complete the activity 2 The helper provides more than half the effort to complete the activity 1 Dependent. The helper does all the effort to complete an activity 7 Patient refused to complete or attempt activity 9 The patient did not perform the activity before the current illness or injury 88 Not attempted due to Medical conditions or safety concerns Grooming (FIM): 4 Other Treatment Pt walked to gym with SBA, FWW (and O2 at 5L/min). He needed some skilled cues to sit in chair with arms, then did 12 minutes bilat UE exercise with arm bike set at 10W resistance, with no breaks. Exercise to strengthen arms to help with sit to stand during ADLs and transfers. He walked back to his room with SBA for safety, FWW and was left up in his recliner, chair alarm on, all needs met. Education OT Patient Education: Purpose of tx/functional activities, Safety issues Response to Teaching: Reinforcement Needed OT Short Term Goals Short Term Goals Time Frame: November 11, 2016 Bathing(FIM): 4 Lower Body Dressing(FIM): 4 Toileting(FIM): 4 Transfers (B,C,W/C) (FIM): 4 (CGA) 1=Demonstrate adherence to instructed precautions during ADL tasks. 2=Patient will verbalize/demonstrate understanding of assistive devices/ modifications for ADL. 3=Patient will improve strength/tolerance for activity to enable patient to perform ADL's. OT Senior Property Manager Goals Mcc Goals Time Frame: November 25, 2016 Eating (FIM): 6 Eating (QC): 6 Groomin Oral Hygiene (QC): 6 Bathing(FIM): 5 Shower/Bathe Self (QC): 5 Upper Body Dressing(FIM): 5 Upper Body Dressing (QC): 5 Lower Body Dressing(FIM): 5 Lower Body Dressing (QC): 5 On/Off Footwear (QC): 5 Toileting(FIM): 5 Toileting Hygiene (QC): 5 Toilet/Commode Transfer(FIM): 5 Toilet/Commode Transfer (QC): 5 Shower Transfer(FIM): 5 Comprehension(FIM): 3 Expression (FIM): 4 Social Interaction(FIM): 4 Problem Solving(FIM): 3 Memory(FIM): 3 Additional Goals: 1-Demonstrate ADL Tasks, 2-Verbalize Understanding, 3- ImproveStrength/Issa 1=Demonstrate adherence to instructed precautions during ADL tasks. 2=Patient will verbalize/demonstrate understanding of assistive devices/ modifications for ADL. 3=Patient will improve strength/tolerance for activity to enable patient to perform ADL's. OT Education/Plan Problem List/Assessment Pt to benefit from skilled OT intervention for ADL training, transfers, strengthening, and safety education to maximize level of function and allow safe return home with family support. Discharge Recommendations Plan/Recommendations: Continue POC Treatment Plan/Plan of Care Patient would benefit from OT for education, treatment and training to promote independence in ADL's, mobility, safety and/or upper extremity function for ADL' s. Plan of Care: ADL Retraining, Functional Mobility, Group Exercise/Act as Ind, UE Funct Exercise/Act, UE Neuromus Re-Ed/Coord Treatment Duration: November 25, 2016 Visits Per Week: 10-12 Minutes/Day (M-F): 60-90 Minutes/Day (Sat/[place]): PRN Agreement: Yes Rehab Potential: Guarded Time/GCodes Start Time: 09:30 Stop Time: 10:30 Total Time Billed (hr/min): 60 Billed Treatment Time visit, 40 minutes ADL, 20 minutes exercise KM RODRIGUEZ OT November 10, 2016 12:49
--- NOTE | 2016-11-10 14:50 | Therapy Group Daily Note ---
Therapy Daily Group Note Patient Education Topic Other List Below Exercises LE Seated Exercise, Sit to/from Stand, UE Exercise Other/Notes Pt was an active participant in OT/PT group. He was on a team that answered questions for "Family Feud" type activity and his group was able to come up with several correct answers (he had some difficulty hearing the different answers from others). During the game, he did sit to stand practice and seated UE and LE exercises. At the end of the group. he was able to share an inspirational phrase or word with the group. He walked back to his room with SBA for safety, FWW (therapist bringing O2 tank) and transferred into recliner, all needs met. Start Time: 13:00 Stop Time: 14:15 Total Billed Treatment Time: 75 Total Billed Treatment visit, 75 minutes group KM RODRIGUEZ OT November 10, 2016 14:50
[2016-11-10] MEDS: warFARin 7.5 MG (COUMADIN) TAB PO SCH (17:18)
[2016-11-10 17:52] VITALS: BP 108/71
[2016-11-10] MEDS: DONEPEZIL 10 MG (ARICEPT) TAB PO SCH (20:32)
[2016-11-10] MEDS: ATORVASTATIN 40 MG (LIPITOR) TABLET PO SCH (20:32)
[2016-11-10] MEDS: LATANOPROST 0.005% (XALATAN) OPHTH SOLN 2.5 ML OU SCH (20:32)
[2016-11-10] MEDS: GABAPENTIN 300 MG (NEURONTIN) CAP PO SCH (20:32)
[2016-11-11] MEDS: RT-ALBUTEROL/IPRATROPIUM 3 ML (DUONEB) VIAL INH SCH ×5 (02:25→19:54)
[2016-11-11 05:00] VITALS: BP 113/72
[2016-11-11] MEDS: inSUlin ASPART (NovoLOG) 1 UNIT/0.01 ML (CHARGE PER UNIT) SC SCH ×4 (05:41→22:00)
[2016-11-11] MEDS: OMEPRAZOLE 20 MG (PriLOSEC) CAP NON-FORMULARY PO SCH (06:26)
[2016-11-11] MEDS: CALCIUM ACETATE 667 MG PO SCH ×2 (06:26→16:33)
[2016-11-11] MEDS: FOLIC ACID 1 MG TAB PO SCH (06:26)
[2016-11-11] MEDS: ARFORMOTEROL 15 MCG/2 ML (BROVANA) INH SOLUTIION IH SCH ×2 (07:32→19:54)
[2016-11-11] MEDS: RT-BUDESONIDE NEBS 0.5 MG/2ML (PULMICORT) AMP INH SCH ×2 (07:32→19:54)
--- NOTE | 2016-11-11 07:51 | Progress Note (SOAP) ---
Subjective Subjective/Events-last exam CVA. Confusion. Hard of hearing Objective Exam Vital Signs Date Time Temp Pulse Resp B/P (MAP) Pulse Ox O2 Delivery O2 Flow Rate FiO2 11/11/16 07:38 93 5.00 11/11/16 07:32 92 5.00 11/11/16 05:00 97.5 78 20 113/72 92 4.50 11/11/16 02:31 92 4.50 11/10/16 20:05 4.00 11/10/16 19:49 96 5.00 11/10/16 19:40 92 5.00 11/10/16 17:52 97.2 95 16 108/71 96 11/10/16 14:44 91 5.00 11/10/16 09:30 97.6 80 18 92/55 95 11/10/16 09:00 4.00 I & O 11/11/16 07:00 Intake Total 850 ml Balance 850 ml Capillary Refill : General Appearance: No Apparent Distress, WD/WN HEENT: Normal ENT Inspection Neck: Normal Inspection Respiratory: Chest Non Tender, Lungs Clear, No Accessory Muscle Use, No Respiratory Distress Results Lab Laboratory Tests 11/10/16 08:35: Prothrombin Time 21.5H, INR Comment 1.9H 11/10/16 09:56: Glucometer 116H 11/10/16 17:35: Glucometer 150H 11/10/16 20:05: Glucometer 148H 11/11/16 05:36: Glucometer 98 Assessment/Plan Assessment/Plan Assess & Plan/Chief Complaint CVA. COPD. Parkinson disease. DVT. Dementia.. Patient on 3 L of oxygen. Patient slept well last night. . 11/08/16. CVA. COPD. Parkinson disease. DVT. Dementia. Patient has less confusion today. . 11/09/16. CVA. COPD. Parkinson disease. DVT. Dementia. Noa of hearing. . 11/10/16. CVA. COPD. Parkinson disease. Dementia. Patient voices no complaints today. . 11/11/16. CVA. COPD Parkinson disease. DVT. Dementia Clinical Quality Measures DVT/VTE Risk/Contraindication: Risk Factor Score Per Nursin RFS Level Per Nursing on Admit: 4+=Very High [place] KIM DO November 11, 2016 07:51
[2016-11-11] MEDS: LORATADINE (CLARITIN) 10 MG TAB PO SCH (08:43)
[2016-11-11] MEDS: MAGNESIUM OXIDE (MAG-OX)400 MG TAB PO SCH (08:43)
[2016-11-11] MEDS: ASPIRIN 81 MG CHEW (CHILDREN'S ASA) PO SCH (08:43)
[2016-11-11] MEDS: SINEMET 25/250 (CARBIDOPA/LEVODOPA) TAB PO SCH ×4 (08:43→22:06)
[2016-11-11] MEDS: CYANOCOBALAMIN 500 MCG TAB (VITAMIN B-12) PO SCH (08:43)
[2016-11-11] MEDS: lisINopril 5 MG (PRINIVIL) TABLET PO SCH (08:45)
--- NOTE | 2016-11-11 09:13 | Physical Therapy Daily Note ---
PT Daily Note-Current Subjective Agreeable to PT. No complaints. Finishing breakfast Transfers Functional [place] Measure 0=Not Assessed/NA 4=Minimal Assistance 1=Total Assistance 5=Supervision or Setup 2=Maximal Assistance 6=Modified [place] 3=Moderate Assistance 7=Complete IndependenceIRFPAI Quality Coding Scale 6 Independent with activity with or without an assistive device 5 Patient requires set up or clean up by helper. Patient completes activity by themselves 4 Supervision or touching assist (CGA). [place] provide cues , steadying assist 3 The helper provides less than half the effort to complete the activity 2 The helper provides more than half the effort to complete the activity 1 Dependent. The helper does all the effort to complete an activity 7 Patient refused to complete or attempt activity 9 The patient did not perform the activity before the current illness or injury 88 Not attempted due to Medical conditions or safety concerns Transfers (B, C, W/C) (FIM): 5 Supine to/from Sit: 5 Sit to/from Stand: 5 (skilled reminders for proper hand placement 50% of the time. ) Pt does not need asssit to stand up. He does need 2-3 attempts to stand from the low bed but able to do so without assist. Pt performed practice reps of sit to from stand x 5 with SBA and did not need reminders for hand placement for this activity. In addition, he performed additional sit to from stand transfers with gait training. Gait Training Does the Patient Walk?: Yes Gait (FIM): 4 Distance (FIM): 3=150 ft Distance: 150 ft x 5; 250 ft x 1 Walk 10 feet (QC): 4 Walk 50 ft with 2 Turns(QC): 4 Walk 150 ft (QC): 4 Gait Level of Assist: 4 (CGA for safety) Gait Assistive Device: FWW slight flexion at hips; when he ambulated the 250 ft distance, he began to bounce and have decreased step length in a Parkinsonian fashion, but maintained balance. Gait consisted of turning, obstacles and following cues to work on and enhance household mobility and safety as well as LE strength and functional activity tolerance. Stair Training Stair Training: Handrails/: 2 handrails Stairs (FIM): 2 #of Steps: 4 4 Steps (QC): 4 Stairs: Pattern: Reciprocal UP/down 4 steps with CGA. Treatments Functional mobility tasks performed throughout entire treatment. Assessment Current Status: Good Progress Still has some difficulty with safety awareness and concern if he were to be home alone at this time. Pt is improving with functional transfers and gait. PT Short Term Goals Short Term Goals Time Frame: November 11, 2016 Transfers (B,C,W/C) (FIM): 4 (CGA) Gait (FIM): 4 (CGA) Gait Distance Comment: 150' Gait Level of Assist: 4 (CGA) Gait Assistive Device: FWW Wheelchair Distance: 150' PT Senior Electronics Technician Goals Senior Electronics Technician Goals PT Senior Care Goals Time Frame: November 25, 2016 Transfers (B,C,W/C) (FIM): 5 Sit to Lying (QC): 4 Lying-Sitting on Side/Bed(QC): 5 Sit to Stand (QC): 4 Rollin Roll Left to Right (QC): 4 Chair/Hph-ms-Avafq Xfer(QC): 4 Car Transfer (QC): 4 Gait (FIM): 5 Distance: 200' Walk 10 feet (QC): 4 Walk 10ft-Uneven Surface(QC): 4 Walk 50ft with 2 Turns (QC): 4 Walk 150 ft (QC): 4 Gait Level of Assist: 5 Gait Assistive Device: FWW Stairs (FIM): 2 # of Steps: 4 1 Step (curb) (QC): 4 4 Steps (QC): 4 12 Steps (QC): 88 Stairs Level Of Assist: 4 (CGA) Picking up an Object (QC): 88 PT Plan Problem List Problem List: Activity Tolerance, Functional Strength, Safety, Balance, Gait, Transfer, Bed Mobility Treatment/Plan Treatment Plan: Continue Plan of Care Treatment Plan: Bed Mobility, Education, Functional Activity Issa, Functional Strength, Group Therapy, Gait, Safety, Therapeutic Exercise, Transfers Treatment Duration: November 25, 2016 Visits Per Week: 10-11 Minutes/Day (M-F): 60-90 Minutes/Day (Sat/Holguin): 15-30 Safety Risks/Education Patient Education: Transfer Techniques Teaching Recipient: Patient Teaching Methods: Demonstration, Discussion Response to Teaching: Return Demonstration, Reinforcement Needed Time/GCodes Time In: 800 Time Out: 845 Total Billed Treatment Time: 45 Total Billed Treatment visit FA 45 DOMINGO STEINER PT November 11, 2016 09:13
[2016-11-11] MEDS: FLUTICASONE NASAL SPRAY (FLONASE) 16 GM BTL NS SCH (09:26)
[2016-11-11 11:03] LABS: INR 2.1 (0.8-1.4); PROTHROMBIN TIME PATIENT 23.1 SEC (12.2-14.7)
--- NOTE | 2016-11-11 11:04 | Speech Therapy Daily Note ---
Speech Daily Progress Note Subjective The patient was seated in his recliner upon entrance. The patient greeted the clinician appropriately and was agreeable to cognitive therapy on this date. Initially, the patient stated he did not recall the clinician, however, referred to the clinician's prior session towards the close of treatment. Objective Orientation: The patient was oriented to month, day of week, year, and location (with the aid of the in-room white board). The patient required mild assistance locating the date (mild cueing). YAAKOV (functional tasks continued): Simple math problems were continued on this date (tip calculations, pieces of cut pie, hours slept, bill amounts, etc.). The patient demonstrated 10% accuracy on this task with maximum clinician verbal prompting. Functional Problem Solving: During the patient's session, he requested to use the restroom. The patient continues to demonstrate reduced functional problem solving with ADL's, as he required [id number] directions to use restroom appropriately ("What do you want me to do now?"). Assessment Assessment Current Status: Poor Progress Treatment Plan Continue Plan of Care Communication Comprehension: 3 Expression: 3 Social Cognition Social Interaction: 3 Problem Solvin Memory: 2 Speech Short Term Goals Short Term Goals Short Term Goals 1. The patient will demonstrate 80% accuracy with simple orientation questions with the use of an external aid. 2. The patient will display 80% accuracy with functional safety problem solving with mild clinician verbal cueing. 3. The patient will demonstrate and recall two memory strategies for use at home with mild clinician verbal cueing. Time Frame-STG: Two Weeks Speech Ophthalmic Lens Inspector Goals Ophthalmic Lens Inspector Goals 1. The patient will demonstrate improved cognitive linguistic skills for increased function and safety with ADL's. Time Frame: Four Weeks Comprehension: 3 Expression: 4 Social Interaction: 4 Problem Solvin Memory: 3 Speech-Plan Treatment Plan Speech Therapy Treatment Plan: Continue Plan of Care Continue skilled speech pathology intervention to target functional problem solving. Treatment Duration: Dec 06, 2016 # of days/week Four to five. Visits Per Week: Four to five. Minutes/Day (M-F): 30 Rehab Potential: Guarded Safety Risks/Education Teaching Recipient: Patient Teaching Methods: Demonstration Response to Teaching: Return Demonstration Education Topics Provided: Orientation Strategies Time Speech Therapy Time In: 08:50 Speech Therapy Time Out: 09:20 Total Billed Time: 30 Billed Treatment Time 1, MARIA FERNANDA SALEEM November 11, 2016 11:04
--- NOTE | 2016-11-11 11:41 | Occupational Ther Daily Note ---
OT Current Status-Daily Note Subjective Pt seen in room, agreeable to OT. No pain mentioned. Appearance Alert, cooperative Mental Status/Objective Functional [place] Measure 0=Not Assessed/NA 4=Minimal Assistance 1=Total Assistance 5=Supervision or Setup 2=Maximal Assistance 6=Modified [place] 3=Moderate Assistance 7=Complete [place] Problem Solving(FIM): 4 (Still asks for directions during ADLs) Memory(FIM): 4 (Still need cues for hand placement for transfers about half the time) ADL-Treatment Throughout ADLs, pt asked for confirmation of what to do next instead of just asking for help. For example, "Do you want me to wash my legs next?" Functional [place] Measure 0=Not Assessed/NA 4=Minimal Assistance 1=Total Assistance 5=Supervision or Setup 2=Maximal Assistance 6=Modified [place] 3=Moderate Assistance 7=Complete IndependenceIRFPAI Quality Coding Scale 6 Independent with activity with or without an assistive device 5 Patient requires set up or clean up by helper. Patient completes activity by themselves 4 Supervision or touching assist (CGA). [place] provide cues , steadying assist 3 The helper provides less than half the effort to complete the activity 2 The helper provides more than half the effort to complete the activity 1 Dependent. The helper does all the effort to complete an activity 7 Patient refused to complete or attempt activity 9 The patient did not perform the activity before the current illness or injury 88 Not attempted due to Medical conditions or safety concerns Bathing (FIM): 5 (Washed face and hands during bath, with setup. Setup for sponge bath, supervision. Pt tended to perseverate on washing areas several times. Was able to wash all parts, including feet, with SBA when standing, FWW. ) Upper Body (FIM): 5 (Doffed and donned t shirt and pullover with setup. No difficulty getting hands into shirts but struggled a little getting shirt over head. ) Lower Body Dressing (FIM): 4 (Able to get slipper socks off and new socks on and get shoes over toes but unable to get shoes on heels. Struggled a little with getting L leg into pants. Stood SBA, FWW. Had difficulty (needed help) pulling up zipper on pants ) Toileting (FIM): 4 (Help with pulling up zipper after toileting. Otherwise managed clothing and hygiene. Requested BSC taken off toilet because of size and shape of the opening) Toilet/Commode Transfer (FIM): 5 (Skilled cues for hand placement getting of and on tall toilet, so that he doesn't pull up from walker. Used grab bars, FWW) All ADLs took longer than usual. O2 in place throughout at 5L/min (off for upper body bathing and dressing). Pt left up in recliner, all needs met, chair alarm on. Education OT Patient Education: Modified ADL techniques, Progress toward Goal/Update tx plan, Transfer techniques Teaching Recipient: Patient Teaching Methods: Demonstration, Discussion Response to Teaching: Verbalize Understanding, Return Demonstration, Reinforcement Needed OT Short Term Goals Short Term Goals Time Frame: November 11, 2016 Bathing(FIM): 4 Lower Body Dressing(FIM): 4 Toileting(FIM): 4 Transfers (B,C,W/C) (FIM): 4 (CGA) 1=Demonstrate adherence to instructed precautions during ADL tasks. 2=Patient will verbalize/demonstrate understanding of assistive devices/ modifications for ADL. 3=Patient will improve strength/tolerance for activity to enable patient to perform ADL's. OT Retirement Goals Retirement Goals Time Frame: November 25, 2016 Eating (FIM): 6 Eating (QC): 6 Groomin Oral Hygiene (QC): 6 Bathing(FIM): 5 Shower/Bathe Self (QC): 5 Upper Body Dressing(FIM): 5 Upper Body Dressing (QC): 5 Lower Body Dressing(FIM): 5 Lower Body Dressing (QC): 5 On/Off Footwear (QC): 5 Toileting(FIM): 5 Toileting Hygiene (QC): 5 Toilet/Commode Transfer(FIM): 5 Toilet/Commode Transfer (QC): 5 Shower Transfer(FIM): 5 Comprehension(FIM): 3 Expression (FIM): 4 Social Interaction(FIM): 4 Problem Solving(FIM): 3 Memory(FIM): 3 Additional Goals: 1-Demonstrate ADL Tasks, 2-Verbalize Understanding, 3- ImproveStrength/Issa 1=Demonstrate adherence to instructed precautions during ADL tasks. 2=Patient will verbalize/demonstrate understanding of assistive devices/ modifications for ADL. 3=Patient will improve strength/tolerance for activity to enable patient to perform ADL's. OT Education/Plan Problem List/Assessment Pt to benefit from skilled OT intervention for ADL training, transfers, strengthening, and safety education to maximize level of function and allow safe return home with family support. Discharge Recommendations Plan/Recommendations: Continue POC Treatment Plan/Plan of Care Patient would benefit from OT for education, treatment and training to promote independence in ADL's, mobility, safety and/or upper extremity function for ADL' s. Plan of Care: ADL Retraining, Functional Mobility, Group Exercise/Act as Ind, UE Funct Exercise/Act, UE Neuromus Re-Ed/Coord Treatment Duration: November 25, 2016 Visits Per Week: 10-12 Minutes/Day (M-F): 60-90 Minutes/Day (Sat/Holgu[place]): PRN Agreement: Yes Rehab Potential: Guarded Time/GCodes Start Time: 09:30 Stop Time: 10:25 Total Time Billed (hr/min): 55 Billed Treatment Time visit, 55 minutes ADL KM RODRIGUEZ OT November 11, 2016 11:41
--- NOTE | 2016-11-11 14:12 | Therapy Group Daily Note ---
Therapy Daily Group Note Exercises Fine Motor, UE Exercise Other/Notes Pt ambulated to OT/PT lunch group with CGA using FWW. Lunch group consisted of socialization, recalling local history per patients, fine motor and UE skills for eating lunch. Pt was able to answer questions about own family history and interact with other patients. Pt required modifications with communication by writing questions out so pt was able to answer appropriately. Pt contributed to discussions appropriately and was able to talk easily with other pt's. Pt was able to open containers/packages by self then use regular utensils to feed self. After group, pt lying in bed with call light/phone in reach. All needs met in room. Start Time: 12:00 Stop Time: 13:15 Total Billed Treatment Time: 75 Total Billed Treatment 1-DOMINGO KNIGHT November 11, 2016 14:12
--- NOTE | 2016-11-11 14:43 | PM & R (SOAP) Progress Note ---
Subjective Subjective/Events-last exam Patient was seen in his room earlier today.Discussed case with RN and with therapy Patient 's family requesting day pass for monday11/13/16.Patient SBA for transfers Objective Exam Last Set of Vital Signs Vital Signs Date Time Temp Pulse Resp B/P (MAP) Pulse Ox O2 Delivery O2 Flow Rate FiO2 11/11/16 07:38 93 5.00 11/11/16 05:00 97.5 78 20 113/72 11/10/16 05:00 Room Air Capillary Refill : I&O Intake and Output 11/11/16 00:00 Intake Total 1100 ml Balance 1100 ml Intake Oral 1100 ml # Voids 6 # Bowel Movements 1 General: Alert, Cooperative, No Acute Distress HEENT: Atraumatic, PERRLA, EOMI, Mucous Memb Moist/[place] Neck: Supple, No JVD Lungs: Clear to Auscultation Heart: Regular Rate Abdomen: Normal Bowel Sounds, Soft, No Tenderness Extremities: No Edema Neuro: Other (generalized weakness memory loss) Results Lab Laboratory Tests 11/08/16 20:12: Glucometer 128H 11/09/16 06:12: Glucometer 112H 11/09/16 09:40: Glucometer 112H 11/09/16 10:34: Prothrombin Time 21.4H, INR Comment 1.9H 11/09/16 15:21: Glucometer 101 11/09/16 20:58: Glucometer 137H 11/10/16 06:41: Glucometer 100 11/10/16 08:35: Prothrombin Time 21.5H, INR Comment 1.9H 11/10/16 09:56: Glucometer 116H 11/10/16 17:35: Glucometer 150H 11/10/16 20:05: Glucometer 148H 11/11/16 05:36: Glucometer 98 11/11/16 09:42: Glucometer 150H 11/11/16 10:43: Prothrombin Time 23.1H, INR Comment 2.1H Assessment/Plan Assessment 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
[2016-11-11] MEDS: warFARin 5 MG (COUMADIN) TAB PO SCH (16:54)
[2016-11-11 17:42] VITALS: BP 103/65
[2016-11-11] MEDS: GABAPENTIN 300 MG (NEURONTIN) CAP PO SCH (22:06)
[2016-11-11] MEDS: DONEPEZIL 10 MG (ARICEPT) TAB PO SCH (22:06)
[2016-11-11] MEDS: ATORVASTATIN 40 MG (LIPITOR) TABLET PO SCH (22:06)
[2016-11-11] MEDS: LATANOPROST 0.005% (XALATAN) OPHTH SOLN 2.5 ML OU SCH (22:09)
[2016-11-12] MEDS: RT-ALBUTEROL/IPRATROPIUM 3 ML (DUONEB) VIAL INH SCH ×4 (02:41→21:00)
[2016-11-12 05:34] LABS: INR 2.2 (0.8-1.4); PROTHROMBIN TIME PATIENT 24.2 SEC (12.2-14.7)
[2016-11-12 06:10] VITALS: BP 102/66
[2016-11-12] MEDS: inSUlin ASPART (NovoLOG) 1 UNIT/0.01 ML (CHARGE PER UNIT) SC SCH ×4 (06:10→20:25)
[2016-11-12] MEDS: CALCIUM ACETATE 667 MG PO SCH ×2 (06:53→15:56)
[2016-11-12] MEDS: FOLIC ACID 1 MG TAB PO SCH (06:53)
[2016-11-12] MEDS: OMEPRAZOLE 20 MG (PriLOSEC) CAP NON-FORMULARY PO SCH (06:54)
[2016-11-12] MEDS: ARFORMOTEROL 15 MCG/2 ML (BROVANA) INH SOLUTIION IH SCH ×2 (08:27→21:09)
[2016-11-12] MEDS: RT-BUDESONIDE NEBS 0.5 MG/2ML (PULMICORT) AMP INH SCH ×2 (08:27→21:09)
--- NOTE | 2016-11-12 08:48 | PM & R (SOAP) Progress Note ---
Subjective Subjective/Events-last exam Patient was seen in his room this AM 02 by N/C remains in place Patient SBA for transfers Objective Exam Last Set of Vital Signs Vital Signs Date Time Temp Pulse Resp B/P (MAP) Pulse Ox O2 Delivery O2 Flow Rate FiO2 11/12/16 08:29 94 4.00 11/12/16 06:10 97.7 85 20 102/66 11/10/16 05:00 Room Air Capillary Refill : I&O Intake and Output 11/12/16 00:00 Intake Total 710 ml Output Total 100 ml Balance 610 ml Intake Oral 710 ml Output Urine Total 100 ml # Voids 6 # Bowel Movements 1 General: Alert, Cooperative, No Acute Distress HEENT: Atraumatic, PERRLA, EOMI, Mucous Memb Moist/[place] Neck: Supple, No JVD Lungs: Clear to Auscultation Heart: Regular Rate Abdomen: Normal Bowel Sounds, Soft, No Tenderness Extremities: No Edema Neuro: Other (generalized weakness memory loss) Results Lab Laboratory Tests 11/09/16 09:40: Glucometer 112H 11/09/16 10:34: Prothrombin Time 21.4H, INR Comment 1.9H 11/09/16 15:21: Glucometer 101 11/09/16 20:58: Glucometer 137H 11/10/16 06:41: Glucometer 100 11/10/16 08:35: Prothrombin Time 21.5H, INR Comment 1.9H 11/10/16 09:56: Glucometer 116H 11/10/16 17:35: Glucometer 150H 11/10/16 20:05: Glucometer 148H 11/11/16 05:36: Glucometer 98 11/11/16 09:42: Glucometer 150H 11/11/16 10:43: Prothrombin Time 23.1H, INR Comment 2.1H 11/11/16 14:37: Glucometer 122H 11/11/16 22:05: Glucometer 122H 11/12/16 05:16: Glucometer 102, Prothrombin Time 24.2H, INR Comment 2.2H Assessment/Plan Assessment 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
[2016-11-12] MEDS: LORATADINE (CLARITIN) 10 MG TAB PO SCH (09:38)
[2016-11-12] MEDS: ASPIRIN 81 MG CHEW (CHILDREN'S ASA) PO SCH (09:38)
[2016-11-12] MEDS: MAGNESIUM OXIDE (MAG-OX)400 MG TAB PO SCH (09:38)
[2016-11-12] MEDS: lisINopril 5 MG (PRINIVIL) TABLET PO SCH (09:38)
[2016-11-12] MEDS: CYANOCOBALAMIN 500 MCG TAB (VITAMIN B-12) PO SCH (09:38)
[2016-11-12] MEDS: SINEMET 25/250 (CARBIDOPA/LEVODOPA) TAB PO SCH ×4 (09:38→20:24)
[2016-11-12] MEDS: FLUTICASONE NASAL SPRAY (FLONASE) 16 GM BTL NS SCH (09:39)
[2016-11-12] MEDS: guaiFENesin/DM (ROBITUSSIN DM) 10 ML UDC PO PRN (09:47)
--- NOTE | 2016-11-12 13:38 | Physical Therapy Daily Note ---
PT Daily Note-Current Subjective Agreeable to PT. Pt has already taken a shower with nursing assit. Transfers Functional [place] Measure 0=Not Assessed/NA 4=Minimal Assistance 1=Total Assistance 5=Supervision or Setup 2=Maximal Assistance 6=Modified [place] 3=Moderate Assistance 7=Complete IndependenceIRFPAI Quality Coding Scale 6 Independent with activity with or without an assistive device 5 Patient requires set up or clean up by helper. Patient completes activity by themselves 4 Supervision or touching assist (CGA). [place] provide cues , steadying assist 3 The helper provides less than half the effort to complete the activity 2 The helper provides more than half the effort to complete the activity 1 Dependent. The helper does all the effort to complete an activity 7 Patient refused to complete or attempt activity 9 The patient did not perform the activity before the current illness or injury 88 Not attempted due to Medical conditions or safety concerns Treatments Sit to from stand with SBA. Pt ambulated x 150 ft and 250 ft with FWW with SB- CGA. As he fatigues, gait begins to present with decreased step length and decreased DF, but no cem LOB. Pt made multiple turns during ambulation and performed sit to from stand transfers as well. Assessment Current Status: Good Progress Continues to require assist with gait and transfers for safety. PT Short Term Goals Short Term Goals Time Frame: November 11, 2016 Transfers (B,C,W/C) (FIM): 4 (CGA) Gait (FIM): 4 (CGA) Gait Distance Comment: 150' Gait Level of Assist: 4 (CGA) Gait Assistive Device: FWW Wheelchair Distance: 150' PT Care Home Goals Subacute Nurse Goals PT Care Home Goals Time Frame: November 25, 2016 Transfers (B,C,W/C) (FIM): 5 Sit to Lying (QC): 4 Lying-Sitting on Side/Bed(QC): 5 Sit to Stand (QC): 4 Rollin Roll Left to Right (QC): 4 Chair/Pxc-cr-Uzxsv Xfer(QC): 4 Car Transfer (QC): 4 Gait (FIM): 5 Distance: 200' Walk 10 feet (QC): 4 Walk 10ft-Uneven Surface(QC): 4 Walk 50ft with 2 Turns (QC): 4 Walk 150 ft (QC): 4 Gait Level of Assist: 5 Gait Assistive Device: FWW Stairs (FIM): 2 # of Steps: 4 1 Step (curb) (QC): 4 4 Steps (QC): 4 12 Steps (QC): 88 Stairs Level Of Assist: 4 (CGA) Picking up an Object (QC): 88 PT Plan Problem List Problem List: Activity Tolerance, Functional Strength Treatment/Plan Treatment Plan: Continue Plan of Care Treatment Plan: Bed Mobility, Education, Functional Activity Issa, Functional Strength, Group Therapy, Gait, Safety, Therapeutic Exercise, Transfers Treatment Duration: November 25, 2016 Visits Per Week: 10-11 Minutes/Day (M-F): 60-90 Minutes/Day (Sat/[place]): 15-30 Time/GCodes Time In: 816 Time Out: 830 Total Billed Treatment Time: 14 Total Billed Treatment visit GT 14 DOMINGO STEINER PT November 12, 2016 13:38
[2016-11-12] MEDS: warFARin 5 MG (COUMADIN) TAB PO SCH (19:56)
[2016-11-12 20:00] VITALS: BP 139/78
[2016-11-12] MEDS: ATORVASTATIN 40 MG (LIPITOR) TABLET PO SCH (20:24)
[2016-11-12] MEDS: GABAPENTIN 300 MG (NEURONTIN) CAP PO SCH (20:24)
[2016-11-12] MEDS: DONEPEZIL 10 MG (ARICEPT) TAB PO SCH (20:24)
[2016-11-12] MEDS: LATANOPROST 0.005% (XALATAN) OPHTH SOLN 2.5 ML OU SCH (20:25)
[2016-11-13] MEDS: RT-ALBUTEROL/IPRATROPIUM 3 ML (DUONEB) VIAL INH SCH ×4 (02:36→21:00)
[2016-11-13 05:40] VITALS: BP 100/52
[2016-11-13] MEDS: inSUlin ASPART (NovoLOG) 1 UNIT/0.01 ML (CHARGE PER UNIT) SC SCH ×4 (06:32→20:56)
[2016-11-13] MEDS: CALCIUM ACETATE 667 MG PO SCH ×2 (06:46→17:30)
[2016-11-13] MEDS: OMEPRAZOLE 20 MG (PriLOSEC) CAP NON-FORMULARY PO SCH (06:46)
[2016-11-13] MEDS: FOLIC ACID 1 MG TAB PO SCH (06:46)
[2016-11-13] MEDS: ARFORMOTEROL 15 MCG/2 ML (BROVANA) INH SOLUTIION IH SCH ×2 (07:28→21:21)
[2016-11-13] MEDS: RT-BUDESONIDE NEBS 0.5 MG/2ML (PULMICORT) AMP INH SCH ×2 (07:28→21:21)
[2016-11-13 09:01] VITALS: BP 109/65
[2016-11-13] MEDS: SINEMET 25/250 (CARBIDOPA/LEVODOPA) TAB PO SCH ×4 (09:09→21:36)
[2016-11-13] MEDS: MAGNESIUM OXIDE (MAG-OX)400 MG TAB PO SCH (09:09)
[2016-11-13] MEDS: LORATADINE (CLARITIN) 10 MG TAB PO SCH (09:10)
[2016-11-13] MEDS: CYANOCOBALAMIN 500 MCG TAB (VITAMIN B-12) PO SCH (09:10)
[2016-11-13] MEDS: guaiFENesin/DM (ROBITUSSIN DM) 10 ML UDC PO PRN (09:10)
[2016-11-13] MEDS: ASPIRIN 81 MG CHEW (CHILDREN'S ASA) PO SCH (09:10)
[2016-11-13] MEDS: lisINopril 5 MG (PRINIVIL) TABLET PO SCH ×2 (09:10→20:07)
[2016-11-13] MEDS: FLUTICASONE NASAL SPRAY (FLONASE) 16 GM BTL NS SCH (09:10)
[2016-11-13 14:08] LABS: INR 2.4 (0.8-1.4); PROTHROMBIN TIME PATIENT 25.8 SEC (12.2-14.7)
[2016-11-13] MEDS: warFARin 5 MG (COUMADIN) TAB PO SCH (17:30)
[2016-11-13 18:53] VITALS: BP 87/54
[2016-11-13] MEDS: ATORVASTATIN 40 MG (LIPITOR) TABLET PO SCH (21:36)
[2016-11-13] MEDS: GABAPENTIN 300 MG (NEURONTIN) CAP PO SCH (21:36)
[2016-11-13] MEDS: DONEPEZIL 10 MG (ARICEPT) TAB PO SCH (21:36)
[2016-11-13] MEDS: LATANOPROST 0.005% (XALATAN) OPHTH SOLN 2.5 ML OU SCH (21:37)
[2016-11-14] MEDS: RT-ALBUTEROL/IPRATROPIUM 3 ML (DUONEB) VIAL INH SCH ×4 (02:40→21:00)
[2016-11-14 05:19] VITALS: BP 109/69
[2016-11-14] MEDS: inSUlin ASPART (NovoLOG) 1 UNIT/0.01 ML (CHARGE PER UNIT) SC SCH ×4 (05:53→20:32)
[2016-11-14] MEDS: FOLIC ACID 1 MG TAB PO SCH (06:27)
[2016-11-14] MEDS: OMEPRAZOLE 20 MG (PriLOSEC) CAP NON-FORMULARY PO SCH (06:27)
[2016-11-14] MEDS: CALCIUM ACETATE 667 MG PO SCH ×2 (06:27→16:29)
--- NOTE | 2016-11-14 07:56 | Progress Note (SOAP) ---
Subjective Subjective/Events-last exam CVA. Dementia Patient had an episode this morning of numbness in the arm. Blood tests and EKG ordered. Spoke to daughter responded to problems potentially Objective Exam Vital Signs Date Time Temp Pulse Resp B/P (MAP) Pulse Ox O2 Delivery O2 Flow Rate FiO2 11/14/16 05:19 98.6 86 16 109/69 95 3.00 11/14/16 02:40 98 3.00 11/13/16 21:21 95 3.00 11/13/16 21:21 95 3.00 11/13/16 20:37 4.00 11/13/16 18:53 97.3 84 16 87/54 94 3.00 11/13/16 14:43 98 4.00 11/13/16 09:01 81 18 109/65 97 3.50 11/13/16 08:23 4.00 I & O 11/14/16 07:00 Intake Total 1550 ml Balance 1550 ml Capillary Refill : General Appearance: No Apparent Distress, WD/WN HEENT: Normal ENT Inspection Neck: Normal Inspection Respiratory: Chest Non Tender, Normal Breath Sounds, No Accessory Muscle Use, No Respiratory Distress Cardiovascular: Regular Rate, Rhythm, No Murmur Gastrointestinal: non tender, soft Results Lab Laboratory Tests 11/13/16 09:34: Glucometer 113H 11/13/16 13:49: Prothrombin Time 25.8H, INR Comment 2.4H 11/13/16 16:12: Glucometer 133H 11/13/16 20:48: Glucometer 140H 11/14/16 05:52: Glucometer 88 Assessment/Plan Assessment/Plan Assess & Plan/Chief Complaint CVA. COPD. Parkinson disease. DVT. Dementia.. Patient on 3 L of oxygen. Patient slept well last night. . 11/08/16. CVA. COPD. Parkinson disease. DVT. Dementia. Patient has less confusion today. . 11/09/16. CVA. COPD. Parkinson disease. DVT. Dementia. Noa of hearing. . 11/10/16. CVA. COPD. Parkinson disease. Dementia. Patient voices no complaints today. . 11/11/16. CVA. COPD Parkinson disease. DVT. Dementia. . CVA. COPD. Parkinson disease. DVT>Dementia. Numbness in arm Clinical Quality Measures DVT/VTE Risk/Contraindication: Risk Factor Score Per Nursin RFS Level Per Nursing on Admit: 4+=Very High DENVER KIM DO November 14, 2016 07:55
[2016-11-14 08:24] LABS: MEAN CORPUSCULAR HEMOGLOBIN 32 PG (25-34); MEAN CORPUSCULAR HGB CONC 33 G/DL (32-36); MEAN CORPUSCULAR VOLUME 98 FL (80-99); RED BLOOD COUNT 4.29 10^6/uL (4.35-5.85); WHITE BLOOD COUNT 6.7 10^3/uL (4.3-11.0)
[2016-11-14 08:25] LABS: BASOPHILS % (AUTO) 0 % (0-10); EOSINOPHILS # (AUTO) 0.3 10^3/uL (0.0-0.3); EOSINOPHILS % (AUTO) 4 % (0-10); LYMPHOCYTES # (AUTO) 1.4 X 10^3 (1.0-4.0); LYMPHOCYTES % (AUTO) 20 % (12-44); MEAN PLATELET VOLUME 9.7 FL (7.4-10.4); MONOCYTES # (AUTO) 0.5 X 10^3 (0.0-1.0); MONOCYTES % (AUTO) 8 % (0-12); NEUTROPHILS # (AUTO) 4.6 X 10^3 (1.8-7.8); NEUTROPHILS % (AUTO) 68 % (42-75); PLATELET COUNT 187 10^3/uL (130-400)
[2016-11-14 08:47] LABS: ALANINE AMINOTRANSFERASE 10 U/L (0-55); ALBUMIN 3.2 G/DL (3.2-4.5); ANION GAP 6 MMOL/L (5-14); ASPARTATE AMINO TRANSFERASE 17 U/L (5-34); BILIRUBIN,TOTAL 0.5 MG/DL (0.1-1.0); BLOOD UREA NITROGEN 21 MG/DL (7-18); BUN/CREATININE RATIO 25; CARBON DIOXIDE 28 MMOL/L (21-32); CHLORIDE 108 MMOL/L (98-107); CREATININE SERUM 0.83 MG/DL (0.60-1.30); GFR ESTIMATED > 60; GLUCOSE 134 MG/DL (70-105); POTASSIUM 3.9 MMOL/L (3.6-5.0); SODIUM 142 MMOL/L (135-145)
[2016-11-14 08:53] LABS: TROPONIN I < 0.30 NG/ML (<0.30)
[2016-11-14] MEDS: SINEMET 25/250 (CARBIDOPA/LEVODOPA) TAB PO SCH ×4 (09:46→20:28)
[2016-11-14] MEDS: MAGNESIUM OXIDE (MAG-OX)400 MG TAB PO SCH (09:46)
[2016-11-14] MEDS: CYANOCOBALAMIN 500 MCG TAB (VITAMIN B-12) PO SCH (09:46)
[2016-11-14] MEDS: LORATADINE (CLARITIN) 10 MG TAB PO SCH (09:46)
[2016-11-14] MEDS: ASPIRIN 81 MG CHEW (CHILDREN'S ASA) PO SCH (09:46)
[2016-11-14] MEDS: FLUTICASONE NASAL SPRAY (FLONASE) 16 GM BTL NS SCH (09:47)
[2016-11-14] MEDS: ARFORMOTEROL 15 MCG/2 ML (BROVANA) INH SOLUTIION IH SCH ×2 (10:10→21:53)
[2016-11-14] MEDS: RT-BUDESONIDE NEBS 0.5 MG/2ML (PULMICORT) AMP INH SCH ×2 (10:12→21:53)
--- NOTE | 2016-11-14 11:21 | Speech Therapy Daily Note ---
Speech Daily Progress Note Subjective The patient was seating upright in bed upon entrance. The patient greeted the clinician appropriately and was agreeable to participation in the cognitive treatment. To note: The patient was provided his glasses for completion of the session. Per patient, his glasses "aren't that good" following his cataract procedure. Objective YAAKOV tasks were continued on this date with the following results: Reading Instructions: The patient was provided small sets of instructions with multi-choice responses. The patient demonstrated 90% accuracy with this task with maximum clinician cueing for repetition and redirection. Orientation: The patient demonstrated 100% accuracy with orientation information at the beginning of the session with the white board. At the close of the session, the patient demonstrated 75% accuracy without the use of the white board and 100% accuracy when cued by clinician to use the in-room white board. Additionally, the patient stated the time on the analog clock and identified the correct time of day (morning). Assessment Assessment Current Status: Good Progress Treatment Plan Continue Plan of Care Communication Comprehension: 3 Expression: 3 Social Cognition Social Interaction: 4 Problem Solvin Memory: 3 Speech Short Term Goals Short Term Goals Short Term Goals 1. The patient will demonstrate 80% accuracy with simple orientation questions with the use of an external aid. 2. The patient will display 80% accuracy with functional safety problem solving with mild clinician verbal cueing. 3. The patient will demonstrate and recall two memory strategies for use at home with mild clinician verbal cueing. Time Frame-STG: Two Weeks Speech Halfway Goals Rn Behavioral Health Goals 1. The patient will demonstrate improved cognitive linguistic skills for increased function and safety with ADL's. Time Frame: Four Weeks Comprehension: 3 Expression: 4 Social Interaction: 4 Problem Solvin Memory: 3 Speech-Plan Treatment Plan Speech Therapy Treatment Plan: Continue Plan of Care Continue skilled speech pathology intervention for improved functional problem solving. Treatment Duration: Dec 06, 2016 # of days/week Four to five. Visits Per Week: Four to five. Minutes/Day (M-F): 30 Rehab Potential: Guarded Safety Risks/Education Teaching Recipient: Patient Teaching Methods: Demonstration, Discussion Response to Teaching: Return Demonstration Education Topics Provided: Orientation Strategies Time Speech Therapy Time In: 08:45 Speech Therapy Time Out: 09:15 Total Billed Time: 30 Billed Treatment Time 1ARACELIS ELIZABETH ST November 14, 2016 11:20
--- NOTE | 2016-11-14 11:53 | Physical Therapy Daily Note ---
PT Daily Note-Current Subjective Agreeable. No complaints. Pt daughter inquiring about family training. Mental Status Patient Orientation: Person, Confused [place] makes conversation and orientation difficult Transfers Functional [place] Measure 0=Not Assessed/NA 4=Minimal Assistance 1=Total Assistance 5=Supervision or Setup 2=Maximal Assistance 6=Modified [place] 3=Moderate Assistance 7=Complete IndependenceIRFPAI Quality Coding Scale 6 Independent with activity with or without an assistive device 5 Patient requires set up or clean up by helper. Patient completes activity by themselves 4 Supervision or touching assist (CGA). [place] provide cues , steadying assist 3 The helper provides less than half the effort to complete the activity 2 The helper provides more than half the effort to complete the activity 1 Dependent. The helper does all the effort to complete an activity 7 Patient refused to complete or attempt activity 9 The patient did not perform the activity before the current illness or injury 88 Not attempted due to Medical conditions or safety concerns Pt is SBA with all sit to from stand transfers in 25% cues for reminders with hand placement and safety. Pt transferred sit to from stand multiple times during gait activities as well as performed sit to from stand 2x5 from chair. Gait Training Does the Patient Walk?: Yes Gait (FIM): 4 (SB-CGA at times for safety or cues to sequence. ) Distance (FIM): 3=150 ft Distance: 150 ft x 3; 250 ft x 3; 50 ft x 2 Walk 10 feet (QC): 4 Walk 50 ft with 2 Turns(QC): 4 Walk 150 ft (QC): 4 Gait Assistive Device: FWW Pt ambulates with step through gait pattern and manages turns fairly well. The longer he walks, the more he begins to "bounce" and demonstrated decreased DF and step length with decreased stability. Stair Training Stair Training: Handrails/: 2 handrails Stairs (FIM): 2 #of Steps: 8 Stairs: Pattern: Reciprocal up/down 8 steps with CGA. Exercises Seated Therapy Exercises: Ankle pumps, Long arc quads, Hip flexion, Hamstring Curls, Hip abd/add Seated Reps: 12 (with 1# wt; to increase LE strength for improved transfers and gait.) Assessment Current Status: Good Progress [place] limits ability to communicate safety information to him and to provide skilled cuing; however when he does hear/understand, he follows cues well. He does demonstrate decreased safety awareness at times. His functional transfers and gait are improving. Feel that with supervision at home, he will manage well. PT Short Term Goals Short Term Goals Time Frame: November 11, 2016 Transfers (B,C,W/C) (FIM): 4 (CGA) Gait (FIM): 4 (CGA) Gait Distance Comment: 150' Gait Level of Assist: 4 (CGA) Gait Assistive Device: FWW Wheelchair Distance: 150' PT [place] Goals Snf Goals PT [place] Goals Time Frame: November 25, 2016 Transfers (B,C,W/C) (FIM): 5 Sit to Lying (QC): 4 Lying-Sitting on Side/Bed(QC): 5 Sit to Stand (QC): 4 Rollin Roll Left to Right (QC): 4 Chair/Lvt-mx-Cgxbv Xfer(QC): 4 Car Transfer (QC): 4 Gait (FIM): 5 Distance: 200' Walk 10 feet (QC): 4 Walk 10ft-Uneven Surface(QC): 4 Walk 50ft with 2 Turns (QC): 4 Walk 150 ft (QC): 4 Gait Level of Assist: 5 Gait Assistive Device: FWW Stairs (FIM): 2 # of Steps: 4 1 Step (curb) (QC): 4 4 Steps (QC): 4 12 Steps (QC): 88 Stairs Level Of Assist: 4 (CGA) Picking up an Object (QC): 88 PT Plan Problem List Problem List: Activity Tolerance, Functional Strength, Safety, Gait, Transfer, Bed Mobility Treatment/Plan Treatment Plan: Continue Plan of Care Treatment Plan: Bed Mobility, Education, Functional Activity Issa, Functional Strength, Group Therapy, Gait, Safety, Therapeutic Exercise, Transfers Treatment Duration: November 25, 2016 Visits Per Week: 10-11 Minutes/Day (M-F): 60-90 Minutes/Day (Sat/[place]gu[place]): 15-30 Safety Risks/Education Patient Education: Transfer Techniques, Safety Issues Teaching Recipient: Patient Teaching Methods: Discussion Response to Teaching: Reinforcement Needed Discharge Recommendations Plan Family training to follow before discharge home. Time/GCodes Time In: 1045 Time Out: 1145 Total Billed Treatment Time: 60 Total Billed Treatment visit GT 30 EX 15 FA 15 DOMINGO STEINER PT November 14, 2016 11:53
[2016-11-14] MEDS: guaiFENesin/DM (ROBITUSSIN DM) 10 ML UDC PO PRN (12:07)
--- NOTE | 2016-11-14 13:19 | Physical Therapy Daily Note ---
PT Daily Note-Current Subjective Agrees to PT. No complaints. Transfers Functional [place] Measure 0=Not Assessed/NA 4=Minimal Assistance 1=Total Assistance 5=Supervision or Setup 2=Maximal Assistance 6=Modified [place] 3=Moderate Assistance 7=Complete IndependenceIRFPAI Quality Coding Scale 6 Independent with activity with or without an assistive device 5 Patient requires set up or clean up by helper. Patient completes activity by themselves 4 Supervision or touching assist (CGA). [place] provide cues , steadying assist 3 The helper provides less than half the effort to complete the activity 2 The helper provides more than half the effort to complete the activity 1 Dependent. The helper does all the effort to complete an activity 7 Patient refused to complete or attempt activity 9 The patient did not perform the activity before the current illness or injury 88 Not attempted due to Medical conditions or safety concerns Treatments Sit to from stand all transfers with SBA; on off Nu step with sBA. Pt ambulated 150 ft x 2 with FWW with SB-CGA. Nu step x 15 minutes to promote LE strength for functional transfers. Pt in room post treatment with oxygen in place and chair alarm activated. Assessment Current Status: Good Progress Progressing. Seems more confused this pm but able to follow cues as hearing allows. PT Short Term Goals Short Term Goals Time Frame: November 11, 2016 Transfers (B,C,W/C) (FIM): 4 (CGA) Gait (FIM): 4 (CGA) Gait Distance Comment: 150' Gait Level of Assist: 4 (CGA) Gait Assistive Device: FWW Wheelchair Distance: 150' PT Skilled Nursing Goals Skilled Nursing Goals PT Skilled Nursing Goals Time Frame: November 25, 2016 Transfers (B,C,W/C) (FIM): 5 Sit to Lying (QC): 4 Lying-Sitting on Side/Bed(QC): 5 Sit to Stand (QC): 4 Rollin Roll Left to Right (QC): 4 Chair/Eld-nl-Bhcvb Xfer(QC): 4 Car Transfer (QC): 4 Gait (FIM): 5 Distance: 200' Walk 10 feet (QC): 4 Walk 10ft-Uneven Surface(QC): 4 Walk 50ft with 2 Turns (QC): 4 Walk 150 ft (QC): 4 Gait Level of Assist: 5 Gait Assistive Device: FWW Stairs (FIM): 2 # of Steps: 4 1 Step (curb) (QC): 4 4 Steps (QC): 4 12 Steps (QC): 88 Stairs Level Of Assist: 4 (CGA) Picking up an Object (QC): 88 PT Plan Problem List Problem List: Activity Tolerance, Functional Strength Treatment/Plan Treatment Plan: Continue Plan of Care Treatment Plan: Bed Mobility, Education, Functional Activity Issa, Functional Strength, Group Therapy, Gait, Safety, Therapeutic Exercise, Transfers Treatment Duration: November 25, 2016 Visits Per Week: 10-11 Minutes/Day (M-F): 60-90 Minutes/Day (Sat/Holguin): 15-30 Time/GCodes Time In: 1245 Time Out: 1315 Total Billed Treatment Time: 30 Total Billed Treatment visit GT 15 EX 15 DOMINGO STEINER PT November 14, 2016 13:19
--- NOTE | 2016-11-14 14:19 | Occupational Ther Daily Note ---
OT Current Status-Daily Note Subjective Pt seen in room, up in recliner, agreeable to OT. No pain mentioned. Appearance Alert, cooperative, a little confused (thought he was going home today for a pass) Mental Status/Objective Functional [place] Measure 0=Not Assessed/NA 4=Minimal Assistance 1=Total Assistance 5=Supervision or Setup 2=Maximal Assistance 6=Modified [place] 3=Moderate Assistance 7=Complete [place] ADL-Treatment Pt had more difficulty with sequencing and problem solving today. During dressing, consistently asked what to do next (last week, he just asked for confirmation on what to do next.). He also started putting L arm through sleeve of t shirt and finally said, "Am I going to get all knotted up?" Help needed to get L arm straightened out on shirt. Cont to be hard of hearing which makes communication more difficulty. Pt also kept taking oxygen off. Functional [place] Measure 0=Not Assessed/NA 4=Minimal Assistance 1=Total Assistance 5=Supervision or Setup 2=Maximal Assistance 6=Modified [place] 3=Moderate Assistance 7=Complete IndependenceIRFPAI Quality Coding Scale 6 Independent with activity with or without an assistive device 5 Patient requires set up or clean up by helper. Patient completes activity by themselves 4 Supervision or touching assist (CGA). [place] provide cues , steadying assist 3 The helper provides less than half the effort to complete the activity 2 The helper provides more than half the effort to complete the activity 1 Dependent. The helper does all the effort to complete an activity 7 Patient refused to complete or attempt activity 9 The patient did not perform the activity before the current illness or injury 88 Not attempted due to Medical conditions or safety concerns Upper Body (FIM): 4 (Help with L arm in t shirt, a little help to pull shirt down in back. Supervision - instructions to sit to put shirt on instead of standing up (due to confusion with t-shirt)) Lower Body Dressing (FIM): 4 (A little help getting L leg into undershorts. Also help with zipper pull on pants but could button/snap pants and buckle belt. SBA to stand to pull pants up, FWW. ) Transfers (B, C, W/C) (FIM): 5 (sit to stand during ADLs with SBA, FWW. ) All ADLs took longer than usual due to frequent requests for help with sequencing and help to put oxygen on. Education OT Patient Education: Modified ADL techniques, Purpose of tx/functional activities, Transfer techniques Teaching Recipient: Patient Teaching Methods: Demonstration Response to Teaching: Return Demonstration, Reinforcement Needed OT Short Term Goals Short Term Goals Time Frame: November 11, 2016 Bathing(FIM): 4 Lower Body Dressing(FIM): 4 Toileting(FIM): 4 Transfers (B,C,W/C) (FIM): 4 (CGA) 1=Demonstrate adherence to instructed precautions during ADL tasks. 2=Patient will verbalize/demonstrate understanding of assistive devices/ modifications for ADL. 3=Patient will improve strength/tolerance for activity to enable patient to perform ADL's. OT Hub Cutter Goals Custodial Goals Time Frame: November 25, 2016 Eating (FIM): 6 Eating (QC): 6 Groomin Oral Hygiene (QC): 6 Bathing(FIM): 5 Shower/Bathe Self (QC): 5 Upper Body Dressing(FIM): 5 Upper Body Dressing (QC): 5 Lower Body Dressing(FIM): 5 Lower Body Dressing (QC): 5 On/Off Footwear (QC): 5 Toileting(FIM): 5 Toileting Hygiene (QC): 5 Toilet/Commode Transfer(FIM): 5 Toilet/Commode Transfer (QC): 5 Shower Transfer(FIM): 5 Comprehension(FIM): 3 Expression (FIM): 4 Social Interaction(FIM): 4 Problem Solving(FIM): 3 Memory(FIM): 3 Additional Goals: 1-Demonstrate ADL Tasks, 2-Verbalize Understanding, 3- ImproveStrength/Issa 1=Demonstrate adherence to instructed precautions during ADL tasks. 2=Patient will verbalize/demonstrate understanding of assistive devices/ modifications for ADL. 3=Patient will improve strength/tolerance for activity to enable patient to perform ADL's. OT Education/Plan Problem List/Assessment Pt to benefit from skilled OT intervention for ADL training, transfers, strengthening, and safety education to maximize level of function and allow safe return home with family support. Discharge Recommendations Plan/Recommendations: Continue POC Treatment Plan/Plan of Care Patient would benefit from OT for education, treatment and training to promote independence in ADL's, mobility, safety and/or upper extremity function for ADL' s. Plan of Care: ADL Retraining, Functional Mobility, Group Exercise/Act as Ind, UE Funct Exercise/Act, UE Neuromus Re-Ed/Coord Treatment Duration: November 25, 2016 Visits Per Week: 10-12 Minutes/Day (M-F): 60-90 Minutes/Day (Sat/Holgu[place]): PRN Agreement: Yes Rehab Potential: Guarded Time/GCodes Start Time: 09:30 Stop Time: 10:10 Total Time Billed (hr/min): 40 Billed Treatment Time visit, 40 minutes ADL KM RODRIGUEZ OT November 14, 2016 14:19
--- NOTE | 2016-11-14 14:19 | Occupational Ther Daily Note ---
OT Current Status-Daily Note Subjective Pt seen in room, up in recliner, agreeable to OT. No pain mentioned. Pt took O2 off at least 5 times during tx. Foam ear pads for tubing won't stay in place. Appearance Alert, cooperative Mental Status/Objective Functional [place] Measure 0=Not Assessed/NA 4=Minimal Assistance 1=Total Assistance 5=Supervision or Setup 2=Maximal Assistance 6=Modified [place] 3=Moderate Assistance 7=Complete [place] ADL-Treatment Functional [place] Measure 0=Not Assessed/NA 4=Minimal Assistance 1=Total Assistance 5=Supervision or Setup 2=Maximal Assistance 6=Modified [place] 3=Moderate Assistance 7=Complete IndependenceIRFPAI Quality Coding Scale 6 Independent with activity with or without an assistive device 5 Patient requires set up or clean up by helper. Patient completes activity by themselves 4 Supervision or touching assist (CGA). [place] provide cues , steadying assist 3 The helper provides less than half the effort to complete the activity 2 The helper provides more than half the effort to complete the activity 1 Dependent. The helper does all the effort to complete an activity 7 Patient refused to complete or attempt activity 9 The patient did not perform the activity before the current illness or injury 88 Not attempted due to Medical conditions or safety concerns Other Treatment Pt stood with SBA, FWW and walked to gym with SBA, FWW, with OT managing O2 tank at 3L/min. Pt transferred to chair with arms with SBA but struggled a little getting out of chair, having to rock a few times to get momentum to push up to stand. In gym, pt did 14 minutes bilat UE ex on arm bike set at 15W resistance.. Pt worked at steady pace and only took one brief break to get a drink. UE ex to strengthen arms to help with transfers. Pt walked back to his room with SBA for safety, FWW and was left up in his recliner, chair alarm on, O2 in place, all needs met. Nursing notified of him taking O2 off. Education OT Patient Education: Purpose of tx/functional activities, Transfer techniques Teaching Recipient: Patient Teaching Methods: Discussion Response to Teaching: Verbalize Understanding OT Short Term Goals Short Term Goals Time Frame: November 11, 2016 Bathing(FIM): 4 Lower Body Dressing(FIM): 4 Toileting(FIM): 4 Transfers (B,C,W/C) (FIM): 4 (CGA) 1=Demonstrate adherence to instructed precautions during ADL tasks. 2=Patient will verbalize/demonstrate understanding of assistive devices/ modifications for ADL. 3=Patient will improve strength/tolerance for activity to enable patient to perform ADL's. OT Display Associate Goals Long-Term Goals Time Frame: November 25, 2016 Eating (FIM): 6 Eating (QC): 6 Groomin Oral Hygiene (QC): 6 Bathing(FIM): 5 Shower/Bathe Self (QC): 5 Upper Body Dressing(FIM): 5 Upper Body Dressing (QC): 5 Lower Body Dressing(FIM): 5 Lower Body Dressing (QC): 5 On/Off Footwear (QC): 5 Toileting(FIM): 5 Toileting Hygiene (QC): 5 Toilet/Commode Transfer(FIM): 5 Toilet/Commode Transfer (QC): 5 Shower Transfer(FIM): 5 Comprehension(FIM): 3 Expression (FIM): 4 Social Interaction(FIM): 4 Problem Solving(FIM): 3 Memory(FIM): 3 Additional Goals: 1-Demonstrate ADL Tasks, 2-Verbalize Understanding, 3- ImproveStrength/Issa 1=Demonstrate adherence to instructed precautions during ADL tasks. 2=Patient will verbalize/demonstrate understanding of assistive devices/ modifications for ADL. 3=Patient will improve strength/tolerance for activity to enable patient to perform ADL's. OT Education/Plan Problem List/Assessment Pt to benefit from skilled OT intervention for ADL training, transfers, strengthening, and safety education to maximize level of function and allow safe return home with family support. Discharge Recommendations Plan/Recommendations: Continue POC Treatment Plan/Plan of Care Patient would benefit from OT for education, treatment and training to promote independence in ADL's, mobility, safety and/or upper extremity function for ADL' s. Plan of Care: ADL Retraining, Functional Mobility, Group Exercise/Act as Ind, UE Funct Exercise/Act, UE Neuromus Re-Ed/Coord Treatment Duration: November 25, 2016 Visits Per Week: 10-12 Minutes/Day (M-F): 60-90 Minutes/Day (Sat/[place]): PRN Agreement: Yes Rehab Potential: Guarded Time/GCodes Start Time: 13:30 Stop Time: 14:05 Total Time Billed (hr/min): 35 Billed Treatment Time visit, 35 minutes exercise KM RODRIGUEZ OT November 14, 2016 14:19
[2016-11-14 17:59] VITALS: BP 91/59
[2016-11-14] MEDS: warFARin 7.5 MG (COUMADIN) TAB PO SCH (18:05)
[2016-11-14] MEDS: GABAPENTIN 300 MG (NEURONTIN) CAP PO SCH (20:28)
[2016-11-14] MEDS: ATORVASTATIN 40 MG (LIPITOR) TABLET PO SCH (20:28)
[2016-11-14] MEDS: DONEPEZIL 10 MG (ARICEPT) TAB PO SCH (20:28)
[2016-11-14] MEDS: LATANOPROST 0.005% (XALATAN) OPHTH SOLN 2.5 ML OU SCH (20:28)
--- NOTE | 2016-11-14 21:27 | PM & R (SOAP) Progress Note ---
Subjective Subjective/Events-last exam Patient was seen in his room this evening Therapy notes reviewed Patient SBA for transfers CGA for gait with walker Cognition improving Knows that this is [place] and that he lives in [place] Patients family in to [facility] Objective Exam Last Set of Vital Signs Vital Signs Date Time Temp Pulse Resp B/P (MAP) Pulse Ox O2 Delivery O2 Flow Rate FiO2 11/14/16 17:59 98.5 88 18 91/59 94 3.00 11/10/16 05:00 Room Air Capillary Refill : I&O Intake and Output 11/14/16 00:00 Intake Total 1590 ml Balance 1590 ml Intake Oral 1590 ml # Voids 7 # Bowel Movements 1 General: Alert, Cooperative, No Acute Distress HEENT: Atraumatic, PERRLA, EOMI, Mucous Memb Moist/[place] Neck: Supple, No JVD Lungs: Clear to Auscultation Heart: Regular Rate Abdomen: Normal Bowel Sounds, Soft, No Tenderness Extremities: No Edema Neuro: Other (generalized weakness memory loss) Results Lab Laboratory Tests 11/11/16 22:05: Glucometer 122H 11/12/16 05:16: Glucometer 102, Prothrombin Time 24.2H, INR Comment 2.2H 11/12/16 09:32: Glucometer 127H 11/12/16 14:33: Glucometer 116H 11/12/16 20:25: Glucometer 106 11/13/16 06:22: Glucometer 104 11/13/16 09:34: Glucometer 113H 11/13/16 13:49: Prothrombin Time 25.8H, INR Comment 2.4H 11/13/16 16:12: Glucometer 133H 11/13/16 20:48: Glucometer 140H 11/14/16 05:52: Glucometer 88 11/14/16 08:18: White Blood Count 6.7, Red Blood Count 4.29L, Hemoglobin 13.8, Hematocrit 42, Mean Corpuscular Volume 98, Mean Corpuscular Hemoglobin 32, Mean Corpuscular Hemoglobin Concent 33, Red Cell Distribution Width 14.0, Platelet Count 187, Mean Platelet Volume 9.7, Neutrophils (%) (Auto) 68, Lymphocytes (%) (Auto) 20, Monocytes (%) (Auto) 8, Eosinophils (%) (Auto) 4, Basophils (%) (Auto) 0, Neutrophils # (Auto) 4.6, Lymphocytes # (Auto) 1.4, Monocytes # (Auto) 0.5, Eosinophils # (Auto) 0.3, Basophils # (Auto) 0.0, Sodium Level 142, Potassium Level 3.9, Chloride Level 108H, Carbon Dioxide Level 28, Anion Gap 6, Blood Urea Nitrogen 21H, Creatinine 0.83, Estimat Glomerular Filtration Rate > 60, BUN /Creatinine Ratio 25, Glucose Level 134H, Calcium Level 9.0, Total Bilirubin 0.5 , Aspartate Amino Transf (AST/SGOT) 17, Alanine Aminotransferase (ALT/SGPT) 10, Alkaline Phosphatase 88, Troponin I < 0.30, Total Protein 6.0L, Albumin 3.2 11/14/16 09:26: Glucometer 136H 11/14/16 14:48: Glucometer 117H 11/14/16 20:30: Glucometer 135H Assessment/Plan Assessment 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
[2016-11-15] MEDS: RT-ALBUTEROL/IPRATROPIUM 3 ML (DUONEB) VIAL INH SCH ×4 (02:56→19:49)
[2016-11-15 05:40] VITALS: BP 92/54
[2016-11-15] MEDS: inSUlin ASPART (NovoLOG) 1 UNIT/0.01 ML (CHARGE PER UNIT) SC SCH ×4 (05:52→20:30)
[2016-11-15] MEDS: FOLIC ACID 1 MG TAB PO SCH (06:06)
[2016-11-15] MEDS: OMEPRAZOLE 20 MG (PriLOSEC) CAP NON-FORMULARY PO SCH (06:06)
[2016-11-15] MEDS: CALCIUM ACETATE 667 MG PO SCH ×2 (06:06→16:49)
[2016-11-15] MEDS: ARFORMOTEROL 15 MCG/2 ML (BROVANA) INH SOLUTIION IH SCH ×2 (08:03→19:49)
[2016-11-15] MEDS: RT-BUDESONIDE NEBS 0.5 MG/2ML (PULMICORT) AMP INH SCH ×2 (08:03→19:49)
--- NOTE | 2016-11-15 08:21 | Progress Note (SOAP) ---
Subjective Subjective/Events-last exam CVA. Dementia. Patient's blood tests came back normal yesterday. Patient having no complaints today Objective Exam Vital Signs Date Time Temp Pulse Resp B/P (MAP) Pulse Ox O2 Delivery O2 Flow Rate FiO2 11/15/16 08:04 90 11/15/16 08:04 3.00 11/15/16 05:40 97.2 95 18 92/54 95 3.00 11/15/16 02:56 92 3.00 11/14/16 22:04 94 11/14/16 21:53 93 11/14/16 20:35 3.00 11/14/16 17:59 98.5 88 18 91/59 94 3.00 11/14/16 16:30 93 3.00 11/14/16 10:14 91 11/14/16 10:10 92 3.00 11/14/16 09:00 4.00 I & O 11/15/16 07:00 Intake Total 1080 ml Balance 1080 ml Capillary Refill : General Appearance: No Apparent Distress, WD/WN HEENT: Normal ENT Inspection Neck: Normal Inspection Respiratory: Chest Non Tender, Lungs Clear, No Accessory Muscle Use, No Respiratory Distress Cardiovascular: Regular Rate, Rhythm Gastrointestinal: non tender, soft Results Lab Laboratory Tests 11/14/16 09:26: Glucometer 136H 11/14/16 14:48: Glucometer 117H 11/14/16 20:30: Glucometer 135H 11/15/16 05:19: Glucometer 105 Assessment/Plan Assessment/Plan Assess & Plan/Chief Complaint CVA. COPD. Parkinson disease. DVT. Dementia.. Patient on 3 L of oxygen. Patient slept well last night. . 11/08/16. CVA. COPD. Parkinson disease. DVT. Dementia. Patient has less confusion today. . 11/09/16. CVA. COPD. Parkinson disease. DVT. Dementia. Noa of hearing. . 11/10/16. CVA. COPD. Parkinson disease. Dementia. Patient voices no complaints today. . 11/11/16. CVA. COPD Parkinson disease. DVT. Dementia. . CVA. COPD. Parkinson disease. DVT>Dementia. Numbness in arm. . 11/15/16. CVA. COPD. Parkinson disease. Dementia. Patient doing better today. Patient not having any problems Clinical Quality Measures DVT/VTE Risk/Contraindication: Risk Factor Score Per Nursin RFS Level Per Nursing on Admit: 4+=Very High [place] KIM DO November 15, 2016 08:21
--- NOTE | 2016-11-15 09:00 | Physical Therapy Daily Note ---
PT Daily Note-Current Subjective Pt in restroom finishing tx with OT upon arrival. Pt reports feeling tired and not sleeping well last night. Pt agrees to PT. Pain Location: No Pain Reported Mental Status Patient Orientation: Person, Confused Attachments: Oxygen (3L) Transfers Functional [place] Measure 0=Not Assessed/NA 4=Minimal Assistance 1=Total Assistance 5=Supervision or Setup 2=Maximal Assistance 6=Modified [place] 3=Moderate Assistance 7=Complete IndependenceIRFPAI Quality Coding Scale 6 Independent with activity with or without an assistive device 5 Patient requires set up or clean up by helper. Patient completes activity by themselves 4 Supervision or touching assist (CGA). [place] provide cues , steadying assist 3 The helper provides less than half the effort to complete the activity 2 The helper provides more than half the effort to complete the activity 1 Dependent. The helper does all the effort to complete an activity 7 Patient refused to complete or attempt activity 9 The patient did not perform the activity before the current illness or injury 88 Not attempted due to Medical conditions or safety concerns Scootin Sit to/from Stand: 5 Sit to Stand (QC): 5 Weight Bearing Weight Bearing Restriction: Full Weight Bearing Location Restriction: LE Bilateral Gait Training Does the Patient Walk?: Yes Distance (FIM): 3=150 ft Distance: 150' Walk 10 feet (QC): 4 Walk 50 ft with 2 Turns(QC): 4 Walk 150 ft (QC): 4 Gait Level of Assist: 4 Gait Persons Needed: 1 Gait Assistive Device: FWW Pt is confused and needs VC for directions. Pt is SBA-CGA for steading during ambulation with FWW. Pt fatigues easy and needs frequent rest breaks during activity. Pt uses 3L of O2 during tx. Wheelchair Training Does the Pt Use a Wheelchair?: No Exercises Seated Therapy Exercises: Ankle pumps, Long arc quads, Hip flexion, Kicking activity, Hip abd/add Seated Reps: 15 (Pt needs frequent rest breaks) Treatments Pt rests at beginning of tx since just finishing with upright activity with OT. RT gives breathing tx. Pt transfers from recliner using FWW at [facility] with VC for hand placement. Pt ambulates in Therapy Commons before resting in chair in Therapy Gym. Pt completes Seated EX with rest breaks during EX for fatigue. Pt returns to room to rest in recliner after ambulation. PT assists pt with ordering breakfast at end of tx. Pt is left in recliner with all needs met at end of tx. Assessment Current Status: Fair Progress Pt is [place] and needs PT to speak louder and slower. Pt continues to be confused during tx although seems more so this morning. Pt fatigues easy and reports didn't sleep well so pt has be woken up during rest breaks. PT Short Term Goals Short Term Goals Time Frame: November 11, 2016 Transfers (B,C,W/C) (FIM): 4 (CGA) Gait (FIM): 4 (CGA) Gait Distance Comment: 150' Gait Level of Assist: 4 (CGA) Gait Assistive Device: FWW Wheelchair Distance: 150' PT Nursing Home Goals Glass Artist Goals PT Glass Artist Goals Time Frame: November 25, 2016 Transfers (B,C,W/C) (FIM): 5 Sit to Lying (QC): 4 Lying-Sitting on Side/Bed(QC): 5 Sit to Stand (QC): 4 Rollin Roll Left to Right (QC): 4 Chair/Ets-pm-[place] Xfer(QC): 4 Car Transfer (QC): 4 Gait (FIM): 5 Distance: 200' Walk 10 feet (QC): 4 Walk 10ft-Uneven Surface(QC): 4 Walk 50ft with 2 Turns (QC): 4 Walk 150 ft (QC): 4 Gait Level of Assist: 5 Gait Assistive Device: FWW Stairs (FIM): 2 # of Steps: 4 1 Step (curb) (QC): 4 4 Steps (QC): 4 12 Steps (QC): 88 Stairs Level Of Assist: 4 (CGA) Picking up an Object (QC): 88 PT Plan Problem List Problem List: Activity Tolerance, Functional Strength, Safety, Balance, Gait, Transfer, Bed Mobility Treatment/Plan Treatment Plan: Continue Plan of Care Treatment Plan: Bed Mobility, Education, Functional Activity [place], Functional Strength, Group Therapy, Gait, Safety, Therapeutic Exercise, Transfers Treatment Duration: November 25, 2016 Visits Per Week: 10-11 Minutes/Day (M-F): 60-90 Minutes/Day (Sat/[place]): 15-30 Safety Risks/Education Patient Education: Gait Training, Transfer Techniques, Correct Positioning, Safety Issues Teaching Recipient: Patient Teaching Methods: Discussion Response to Teaching: Verbalize Understanding Time/GCodes Time In: 815 Time Out: 900 Total Billed Treatment Time: 45 Total Billed Treatment visit, EX (15m), GT (15m) & FA (15m) KASEY KATE SENIOR GENETIC COUNSELOR November 15, 2016 09:00
--- NOTE | 2016-11-15 09:23 | PM & R (SOAP) Progress Note ---
Subjective Subjective/Events-last exam Patient was seen in his room this AM Patient SBA for transfers No recent INR noted will recheck Objective Exam Last Set of Vital Signs Vital Signs Date Time Temp Pulse Resp B/P (MAP) Pulse Ox O2 Delivery O2 Flow Rate FiO2 11/15/16 08:04 90 11/15/16 08:04 3.00 11/15/16 05:40 97.2 95 18 92/54 11/10/16 05:00 Room Air Capillary Refill : I&O Intake and Output 11/15/16 00:00 Intake Total 1280 ml Balance 1280 ml Intake Oral 1280 ml # Voids 6 General: Alert, Cooperative, No Acute Distress HEENT: Atraumatic, PERRLA, EOMI, Mucous Memb Moist/[place] Neck: Supple, No JVD Lungs: Clear to Auscultation Heart: Regular Rate Abdomen: Normal Bowel Sounds, Soft, No Tenderness Extremities: No Edema Neuro: Other (generalized weakness memory loss) Results Lab Laboratory Tests 11/12/16 09:32: Glucometer 127H 11/12/16 14:33: Glucometer 116H 11/12/16 20:25: Glucometer 106 11/13/16 06:22: Glucometer 104 11/13/16 09:34: Glucometer 113H 11/13/16 13:49: Prothrombin Time 25.8H, INR Comment 2.4H 11/13/16 16:12: Glucometer 133H 11/13/16 20:48: Glucometer 140H 11/14/16 05:52: Glucometer 88 11/14/16 08:18: White Blood Count 6.7, Red Blood Count 4.29L, Hemoglobin 13.8, Hematocrit 42, Mean Corpuscular Volume 98, Mean Corpuscular Hemoglobin 32, Mean Corpuscular Hemoglobin Concent 33, Red Cell Distribution Width 14.0, Platelet Count 187, Mean Platelet Volume 9.7, Neutrophils (%) (Auto) 68, Lymphocytes (%) (Auto) 20, Monocytes (%) (Auto) 8, Eosinophils (%) (Auto) 4, Basophils (%) (Auto) 0, Neutrophils # (Auto) 4.6, Lymphocytes # (Auto) 1.4, Monocytes # (Auto) 0.5, Eosinophils # (Auto) 0.3, Basophils # (Auto) 0.0, Sodium Level 142, Potassium Level 3.9, Chloride Level 108H, Carbon Dioxide Level 28, Anion Gap 6, Blood Urea Nitrogen 21H, Creatinine 0.83, Estimat Glomerular Filtration Rate > 60, BUN /Creatinine Ratio 25, Glucose Level 134H, Calcium Level 9.0, Total Bilirubin 0.5 , Aspartate Amino Transf (AST/SGOT) 17, Alanine Aminotransferase (ALT/SGPT) 10, Alkaline Phosphatase 88, Troponin I < 0.30, Total Protein 6.0L, Albumin 3.2 11/14/16 09:26: Glucometer 136H 11/14/16 14:48: Glucometer 117H 11/14/16 20:30: Glucometer 135H 11/15/16 05:19: Glucometer 105 Assessment/Plan Assessment 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
--- NOTE | 2016-11-15 09:37 | Occupational Ther Daily Note ---
OT Current Status-Daily Note Subjective Pt alert, sitting in bathroom. Nrsg present. Pt agreed to therapy. No c/o pain at this time. Mental Status/Objective Patient Orientation: Person Functional [place] Measure 0=Not Assessed/NA 4=Minimal Assistance 1=Total Assistance 5=Supervision or Setup 2=Maximal Assistance 6=Modified [place] 3=Moderate Assistance 7=Complete [place] Attachments: Oxygen ADL-Treatment Pt had ambulated in to bathroom with nrsg and DAILY took over care. Pt was SBA for toilet transfer and to manipulate clothing. Pt stood at sink and completed shaving prior to shower with SBA. Pt then transferred into shower using grabbars, shower bench and FWW with SBA. After set up in shower, pt was able to complete with SBA using hand held shower, shower bench and grabbars. Pt tends to want to stand up in the shower, reminders that there is a bench to sit on then pt will sit for safety. Pt is able to dry self after being handed towels. After set up, pt is able to don/doff clothing by self only assist for buttoning pants due to waist band to tight, CGA. Pt has demonstrated tendencies to get 'lost' during a task and needs 1 verbal or gestural cue to get back on task. Pt realizes this and does get frustrated with self. Then pt requested to use toilet. Toilet transfer using FWW and grabbars, SBA. Toileting CGA due to inability to get button buttoned. Pt able to cleanse self after toileting. Pt then ambulated to sink to wash hands then ambulated to recliner. Respiratory in room. Pt sitting in recliner with call light/phone in reach. All needs met in room. Functional [place] Measure 0=Not Assessed/NA 4=Minimal Assistance 1=Total Assistance 5=Supervision or Setup 2=Maximal Assistance 6=Modified [place] 3=Moderate Assistance 7=Complete IndependenceIRFPAI Quality Coding Scale 6 Independent with activity with or without an assistive device 5 Patient requires set up or clean up by helper. Patient completes activity by themselves 4 Supervision or touching assist (CGA). [place] provide cues , steadying assist 3 The helper provides less than half the effort to complete the activity 2 The helper provides more than half the effort to complete the activity 1 Dependent. The helper does all the effort to complete an activity 7 Patient refused to complete or attempt activity 9 The patient did not perform the activity before the current illness or injury 88 Not attempted due to Medical conditions or safety concerns Grooming (FIM): 5 Bathing (FIM): 5 Upper Body (FIM): 5 Lower Body Dressing (FIM): 4 On/Off Footwear (QC): 5 Toileting (FIM): 4 Transfers (B, C, W/C) (FIM): 5 Toilet/Commode Transfer (FIM): 5 Shower Transfer(FIM): 5 OT Short Term Goals Short Term Goals Time Frame: November 11, 2016 Bathing(FIM): 4 Lower Body Dressing(FIM): 4 Toileting(FIM): 4 Transfers (B,C,W/C) (FIM): 4 (CGA) 1=Demonstrate adherence to instructed precautions during ADL tasks. 2=Patient will verbalize/demonstrate understanding of assistive devices/ modifications for ADL. 3=Patient will improve strength/tolerance for activity to enable patient to perform ADL's. OT Care Home Goals Garment Alteration Examiner Goals Time Frame: November 25, 2016 Eating (FIM): 6 Eating (QC): 6 Groomin Oral Hygiene (QC): 6 Bathing(FIM): 5 Shower/Bathe Self (QC): 5 Upper Body Dressing(FIM): 5 Upper Body Dressing (QC): 5 Lower Body Dressing(FIM): 5 Lower Body Dressing (QC): 5 On/Off Footwear (QC): 5 Toileting(FIM): 5 Toileting Hygiene (QC): 5 Toilet/Commode Transfer(FIM): 5 Toilet/Commode Transfer (QC): 5 Shower Transfer(FIM): 5 Comprehension(FIM): 3 Expression (FIM): 4 Social Interaction(FIM): 4 Problem Solving(FIM): 3 Memory(FIM): 3 Additional Goals: 1-Demonstrate ADL Tasks, 2-Verbalize Understanding, 3- ImproveStrength/Issa 1=Demonstrate adherence to instructed precautions during ADL tasks. 2=Patient will verbalize/demonstrate understanding of assistive devices/ modifications for ADL. 3=Patient will improve strength/tolerance for activity to enable patient to perform ADL's. OT Education/Plan Problem List/Assessment Pt to benefit from skilled OT intervention for ADL training, transfers, strengthening, and safety education to maximize level of function and allow safe return home with family support. Discharge Recommendations Plan/Recommendations: Continue POC Treatment Plan/Plan of Care Patient would benefit from OT for education, treatment and training to promote independence in ADL's, mobility, safety and/or upper extremity function for ADL' s. Plan of Care: ADL Retraining, Functional Mobility, Group Exercise/Act as Ind, UE Funct Exercise/Act, UE Neuromus Re-Ed/Coord Treatment Duration: November 25, 2016 Visits Per Week: 10-12 Minutes/Day (M-F): 60-90 Minutes/Day (Sat/[place]): PRN Agreement: Yes Rehab Potential: Guarded Time/GCodes Start Time: 07:00 Stop Time: 08:15 Total Time Billed (hr/min): 75 Billed Treatment Time 1 visit-ADL 5 (75 min) DOMINGO PIMENTEL November 15, 2016 09:37
[2016-11-15] MEDS: LORATADINE (CLARITIN) 10 MG TAB PO SCH (09:48)
[2016-11-15] MEDS: MAGNESIUM OXIDE (MAG-OX)400 MG TAB PO SCH (09:48)
[2016-11-15] MEDS: CYANOCOBALAMIN 500 MCG TAB (VITAMIN B-12) PO SCH (09:48)
[2016-11-15] MEDS: ASPIRIN 81 MG CHEW (CHILDREN'S ASA) PO SCH (09:49)
[2016-11-15] MEDS: SINEMET 25/250 (CARBIDOPA/LEVODOPA) TAB PO SCH ×4 (09:49→20:30)
[2016-11-15] MEDS: FLUTICASONE NASAL SPRAY (FLONASE) 16 GM BTL NS SCH (09:52)
--- NOTE | 2016-11-15 10:01 | Speech Therapy Daily Note ---
Speech Daily Progress Note Subjective The patient was seated upright in recliner upon entrance. The patient greeted the clinician appropriately and agreed to participate in cognitive therapy on this date. Objective YAAKOV (functional tasks) were continued on this date with the following results: - Reading Instructions: The patient demonstrated 80% accuracy with reading/ following instructions with maximum clinician verbal cueing. - Reading Medicine Labels: The patient demonstrated 60% accuracy with reading medicine labels with maximum clinician verbal cueing. - Calender Use: The patient demonstrated 90% accuracy with calendar tasks with maximum clinician verbal cueing. * Verbal cueing was used to repeat instructions which may be secondary to the patient's decreased hearing ability. Orientation: The patient was oriented to month, year, and day of week ( independently). The patient used the in-room white board (independently) for identification of date. To note: The patient's cognition is difficult to comprehensively assess due to his significant difficulty with hearing. At times, the patient appears to provide an erroneous answer due to not hearing the question appropriately. The patient's overall safety is a concern due to his reduced hearing ability. Assessment Assessment Current Status: Fair Progress Treatment Plan Continue Plan of Care Communication Comprehension: 3 Expression: 3 Social Cognition Social Interaction: 4 Problem Solvin Memory: 3 Speech Short Term Goals Short Term Goals Short Term Goals 1. The patient will demonstrate 80% accuracy with simple orientation questions with the use of an external aid. 2. The patient will display 80% accuracy with functional safety problem solving with mild clinician verbal cueing. 3. The patient will demonstrate and recall two memory strategies for use at home with mild clinician verbal cueing. Time Frame-STG: Two Weeks Speech Courtesy [place] Goals [facility] Goals 1. The patient will demonstrate improved cognitive linguistic skills for increased function and safety with ADL's. Time Frame: Four Weeks Comprehension: 3 Expression: 4 Social Interaction: 4 Problem Solvin Memory: 3 Speech-Plan Treatment Plan Speech Therapy Treatment Plan: Continue Plan of Care Continue skilled speech pathology for improved functional problem solving ( cognition). Treatment Duration: Dec 06, 2016 # of days/week Four to five. Visits Per Week: Four to five. Minutes/Day (M-F): 30 Rehab Potential: Guarded Safety Risks/Education Teaching Recipient: Patient Teaching Methods: Demonstration, Discussion Response to Teaching: Verbalize Understanding, Return Demonstration Education Topics Provided: Use of In-Room White Board Time Speech Therapy Time In: 09:15 Speech Therapy Time Out: 09:45 Total Billed Time: 30 Billed Treatment Time 1, MARIA FERNANDA SALEEM November 15, 2016 10:01
--- NOTE | 2016-11-15 15:45 | Physical Therapy Daily Note ---
PT Daily Note-Current Subjective Pt is sitting in recliner upon arrival. Pt agrees to PT although reports still fatigued. Pain Location: No Pain Reported Mental Status Patient Orientation: Person, Confused Attachments: Oxygen (3L) Transfers Functional [place] Measure 0=Not Assessed/NA 4=Minimal Assistance 1=Total Assistance 5=Supervision or Setup 2=Maximal Assistance 6=Modified [place] 3=Moderate Assistance 7=Complete IndependenceIRFPAI Quality Coding Scale 6 Independent with activity with or without an assistive device 5 Patient requires set up or clean up by helper. Patient completes activity by themselves 4 Supervision or touching assist (CGA). [place] provide cues , steadying assist 3 The helper provides less than half the effort to complete the activity 2 The helper provides more than half the effort to complete the activity 1 Dependent. The helper does all the effort to complete an activity 7 Patient refused to complete or attempt activity 9 The patient did not perform the activity before the current illness or injury 88 Not attempted due to Medical conditions or safety concerns Exercises Seated Therapy Exercises: Ankle pumps, Long arc quads, Hip flexion, Kicking activity, Hip abd/add Seated Reps: 15 (2 sets) Treatments Pt completed Seated Ex in recliner due to fatigue and pt having trouble staying awake. Pt was also tested for Orientation. Pt demonstrated some confusion today. Pt is left with all needs met at end of tx. Assessment Current Status: Fair Progress Pt demonstrates confusion during tx. PT Short Term Goals Short Term Goals Time Frame: November 11, 2016 Transfers (B,C,W/C) (FIM): 4 (CGA) Gait (FIM): 4 (CGA) Gait Distance Comment: 150' Gait Level of Assist: 4 (CGA) Gait Assistive Device: FWW Wheelchair Distance: 150' PT Residential Goals Crossing Supervisor Goals PT Crossing Supervisor Goals Time Frame: November 25, 2016 Transfers (B,C,W/C) (FIM): 5 Sit to Lying (QC): 4 Lying-Sitting on Side/Bed(QC): 5 Sit to Stand (QC): 4 Rollin Roll Left to Right (QC): 4 Chair/Olh-sh-Meate Xfer(QC): 4 Car Transfer (QC): 4 Gait (FIM): 5 Distance: 200' Walk 10 feet (QC): 4 Walk 10ft-Uneven Surface(QC): 4 Walk 50ft with 2 Turns (QC): 4 Walk 150 ft (QC): 4 Gait Level of Assist: 5 Gait Assistive Device: FWW Stairs (FIM): 2 # of Steps: 4 1 Step (curb) (QC): 4 4 Steps (QC): 4 12 Steps (QC): 88 Stairs Level Of Assist: 4 (CGA) Picking up an Object (QC): 88 PT Plan Problem List Problem List: Activity Tolerance, Functional Strength, Safety, Balance, Gait, Transfer, Bed Mobility Treatment/Plan Treatment Plan: Continue Plan of Care Treatment Plan: Bed Mobility, Education, Functional Activity [place], Functional Strength, Group Therapy, Gait, Safety, Therapeutic Exercise, Transfers Treatment Duration: November 25, 2016 Visits Per Week: 10-11 Minutes/Day (M-F): 60-90 Minutes/Day (Sat/[place]gu[place]): 15-30 Safety Risks/Education Patient Education: Transfer Techniques, Correct Positioning, Safety Issues Teaching Recipient: Patient Teaching Methods: Discussion Response to Teaching: Verbalize Understanding Time/GCodes Time In: 1300 Time Out: 1330 Total Billed Treatment Time: 30 Total Billed Treatment visit, EX (20m) & FA (10m) KASEY KATE PTA November 15, 2016 15:45
[2016-11-15] MEDS: warFARin 5 MG (COUMADIN) TAB PO SCH (17:06)
[2016-11-15 17:52] LABS: BILIRUBIN,URINE NEGATIVE (NEGATIVE); KETONES,URINE NEGATIVE (NEGATIVE); LEUKOCYTE ESTERASE ,URINE NEGATIVE (NEGATIVE); NITRITE,URINE NEGATIVE (NEGATIVE); PH,URINE 5 (5-9); PROTEIN,URINE NEGATIVE (NEGATIVE); UROBILINOGEN,URINE NORMAL (NORMAL)
[2016-11-15 17:59] LABS: SQUAMOUS EPITHELIAL CELL,UR 0-2 /HPF; WBC,URINE RARE /HPF
[2016-11-15 18:05] VITALS: BP 127/76
[2016-11-15] MEDS: LATANOPROST 0.005% (XALATAN) OPHTH SOLN 2.5 ML OU SCH (20:30)
[2016-11-15] MEDS: ATORVASTATIN 40 MG (LIPITOR) TABLET PO SCH (20:30)
[2016-11-15] MEDS: GABAPENTIN 300 MG (NEURONTIN) CAP PO SCH (20:30)
[2016-11-15] MEDS: DONEPEZIL 10 MG (ARICEPT) TAB PO SCH (20:30)
[2016-11-16] MEDS: RT-ALBUTEROL/IPRATROPIUM 3 ML (DUONEB) VIAL INH SCH ×4 (02:39→20:23)
[2016-11-16 05:46] VITALS: BP 98/56
[2016-11-16] MEDS: inSUlin ASPART (NovoLOG) 1 UNIT/0.01 ML (CHARGE PER UNIT) SC SCH ×4 (06:15→20:21)
[2016-11-16] MEDS: FOLIC ACID 1 MG TAB PO SCH (06:16)
[2016-11-16] MEDS: OMEPRAZOLE 20 MG (PriLOSEC) CAP NON-FORMULARY PO SCH (06:16)
[2016-11-16] MEDS: CALCIUM ACETATE 667 MG PO SCH ×2 (06:16→17:08)
[2016-11-16 06:29] LABS: INR 2.2 (0.8-1.4)
[2016-11-16] MEDS: RT-BUDESONIDE NEBS 0.5 MG/2ML (PULMICORT) AMP INH SCH ×2 (07:29→20:22)
[2016-11-16] MEDS: ARFORMOTEROL 15 MCG/2 ML (BROVANA) INH SOLUTIION IH SCH ×2 (07:29→20:22)
[2016-11-16] MEDS: CYANOCOBALAMIN 500 MCG TAB (VITAMIN B-12) PO SCH (08:09)
[2016-11-16] MEDS: MAGNESIUM OXIDE (MAG-OX)400 MG TAB PO SCH (08:09)
[2016-11-16] MEDS: LORATADINE (CLARITIN) 10 MG TAB PO SCH (08:09)
[2016-11-16] MEDS: ASPIRIN 81 MG CHEW (CHILDREN'S ASA) PO SCH (08:09)
[2016-11-16] MEDS: SINEMET 25/250 (CARBIDOPA/LEVODOPA) TAB PO SCH ×4 (08:09→20:22)
[2016-11-16] MEDS: FLUTICASONE NASAL SPRAY (FLONASE) 16 GM BTL NS SCH (08:10)
--- NOTE | 2016-11-16 08:18 | Progress Note (SOAP) ---
Subjective Subjective/Events-last exam CVA. Patient doing better. Patient more alert. Patient realizes he is in the hospital. Patient eating good by himself Objective Exam Vital Signs Date Time Temp Pulse Resp B/P (MAP) Pulse Ox O2 Delivery O2 Flow Rate FiO2 11/16/16 07:35 3.00 11/16/16 07:29 92 3.00 11/16/16 05:46 96.8 82 18 98/56 94 11/16/16 02:39 91 3.00 11/15/16 20:30 3.00 11/15/16 19:53 3.00 11/15/16 19:49 93 3.00 11/15/16 18:05 97.5 89 16 127/76 95 11/15/16 14:30 92 3.00 11/15/16 09:00 3.00 I & O 11/16/16 07:00 Intake Total 880 ml Balance 880 ml Capillary Refill : General Appearance: No Apparent Distress, WD/WN HEENT: Normal ENT Inspection Neck: Normal Inspection Respiratory: Normal Breath Sounds, No Accessory Muscle Use, No Respiratory Distress Results Lab Laboratory Tests 11/15/16 10:01: Glucometer 168H 11/15/16 14:50: Glucometer 135H 11/15/16 17:35: Urine Color YELLOW, Urine Clarity CLEAR, Urine pH 5, Urine Specific [place] 1.020, Urine Protein NEGATIVE, Urine Glucose (UA) NEGATIVE, Urine Ketones NEGATIVE, Urine Nitrite NEGATIVE, Urine Bilirubin NEGATIVE, Urine Urobilinogen NORMAL, Urine Leukocyte Esterase NEGATIVE, Urine RBC (Auto) 1+H, Urine RBC 2-5H , Urine WBC RARE, Urine Squamous Epithelial Cells 0-2, Urine Crystals NONE, Urine Bacteria NONE, Urine Casts NONE, Urine Mucus SMALLH, Urine Culture Indicated NO 11/15/16 19:59: Glucometer 130H 11/16/16 05:05: Glucometer 97 11/16/16 05:24: Prothrombin Time 24.0H, INR Comment 2.2H Assessment/Plan Assessment/Plan Assess & Plan/Chief Complaint CVA. COPD. Parkinson disease. DVT. Dementia.. Patient on 3 L of oxygen. Patient slept well last night. . 11/08/16. CVA. COPD. Parkinson disease. DVT. Dementia. Patient has less confusion today. . 11/09/16. CVA. COPD. Parkinson disease. DVT. Dementia. Noa of hearing. . 11/10/16. CVA. COPD. Parkinson disease. Dementia. Patient voices no complaints today. . 11/11/16. CVA. COPD Parkinson disease. DVT. Dementia. . CVA. COPD. Parkinson disease. DVT>Dementia. Numbness in arm. . 11/15/16. CVA. COPD. Parkinson disease. Dementia. Patient doing better today. Patient not having any problems. . 11/16. CVA. COPD. Parkinson disease. Dementia. Patient improving Clinical Quality Measures DVT/VTE Risk/Contraindication: Risk Factor Score Per Nursin RFS Level Per Nursing on Admit: 4+=Very High [place] KIM DO November 16, 2016 08:18
--- NOTE | 2016-11-16 08:53 | Occupational Ther Daily Note ---
OT Current Status-Daily Note Subjective Pt sitting in chair, agrees to treatment. Pt has no c/o pain this am. Mental Status/Objective Functional [place] Measure 0=Not Assessed/NA 4=Minimal Assistance 1=Total Assistance 5=Supervision or Setup 2=Maximal Assistance 6=Modified [place] 3=Moderate Assistance 7=Complete [place] ADL-Treatment Pt finishing breakfast. Pt able to cut pancake and feed self without difficulty. Pt requests to get dressed. Pt donned pullover shirt with set up and increased time, cues for sequencing. Pt doffed pajama pants with SBA for safety. Minimal assistance was required to start pants over feet. Stood with supervision for pant hike. Pt able to button pants, but required assist with zipper. Pt able to fasten belt. Increased time required for ADL tasks. Occasional rest breaks taken secondary to fatigue. Pt is preoccupied with oxygen tubing during session, but is able to be redirected. Pt sitting in chair with needs met and chair alarm in place after session. Functional [place] Measure 0=Not Assessed/NA 4=Minimal Assistance 1=Total Assistance 5=Supervision or Setup 2=Maximal Assistance 6=Modified [place] 3=Moderate Assistance 7=Complete IndependenceIRFPAI Quality Coding Scale 6 Independent with activity with or without an assistive device 5 Patient requires set up or clean up by helper. Patient completes activity by themselves 4 Supervision or touching assist (CGA). [place] provide cues , steadying assist 3 The helper provides less than half the effort to complete the activity 2 The helper provides more than half the effort to complete the activity 1 Dependent. The helper does all the effort to complete an activity 7 Patient refused to complete or attempt activity 9 The patient did not perform the activity before the current illness or injury 88 Not attempted due to Medical conditions or safety concerns Upper Body (FIM): 5 Lower Body Dressing (FIM): 4 OT Short Term Goals Short Term Goals Time Frame: November 11, 2016 Bathing(FIM): 4 Lower Body Dressing(FIM): 4 Toileting(FIM): 4 Transfers (B,C,W/C) (FIM): 4 (CGA) 1=Demonstrate adherence to instructed precautions during ADL tasks. 2=Patient will verbalize/demonstrate understanding of assistive devices/ modifications for ADL. 3=Patient will improve strength/tolerance for activity to enable patient to perform ADL's. OT Prison Goals Prison Goals Time Frame: November 25, 2016 Eating (FIM): 6 Eating (QC): 6 Groomin Oral Hygiene (QC): 6 Bathing(FIM): 5 Shower/Bathe Self (QC): 5 Upper Body Dressing(FIM): 5 Upper Body Dressing (QC): 5 Lower Body Dressing(FIM): 5 Lower Body Dressing (QC): 5 On/Off Footwear (QC): 5 Toileting(FIM): 5 Toileting Hygiene (QC): 5 Toilet/Commode Transfer(FIM): 5 Toilet/Commode Transfer (QC): 5 Shower Transfer(FIM): 5 Comprehension(FIM): 3 Expression (FIM): 4 Social Interaction(FIM): 4 Problem Solving(FIM): 3 Memory(FIM): 3 Additional Goals: 1-Demonstrate ADL Tasks, 2-Verbalize Understanding, 3- ImproveStrength/Issa 1=Demonstrate adherence to instructed precautions during ADL tasks. 2=Patient will verbalize/demonstrate understanding of assistive devices/ modifications for ADL. 3=Patient will improve strength/tolerance for activity to enable patient to perform ADL's. OT Education/Plan Problem List/Assessment Pt to benefit from skilled OT intervention for ADL training, transfers, strengthening, and safety education to maximize level of function and allow safe return home with family support. Discharge Recommendations Plan/Recommendations: Continue POC Treatment Plan/Plan of Care Patient would benefit from OT for education, treatment and training to promote independence in ADL's, mobility, safety and/or upper extremity function for ADL' s. Plan of Care: ADL Retraining, Functional Mobility, Group Exercise/Act as Ind, UE Funct Exercise/Act, UE Neuromus Re-Ed/Coord Treatment Duration: November 25, 2016 Visits Per Week: 10-12 Minutes/Day (M-F): 60-90 Minutes/Day (Sat/[place]): PRN Agreement: Yes Rehab Potential: Guarded Time/GCodes Start Time: 08:15 Stop Time: 08:45 Total Time Billed (hr/min): 30 Billed Treatment Time 1 visit, ADLx2(30minutes) ZANDER BERMUDEZ OT November 16, 2016 08:53
--- NOTE | 2016-11-16 10:02 | Speech Therapy Daily Note ---
Speech Daily Progress Note Subjective The patient was sitting upright in recliner upon entrance. The patient greeted the clinician appropriately and was agreeable to cognitive treatment on this date. To note, the patient does report fatigue. Objective Due to the upcoming progress meeting, the patient's cognition was re-evaluated with the below results: - Executive Functioning: The patient was unable to complete trail-making activity regardless of maximum clinician verbal prompting ("I just don't understand it"). The patient additionally was unable to complete cube copying or place the accurate time on a self-drawn clock face.\\ - Language: The patient was able to name three black and white photographs and repeat simple phrases. The patient continues to demonstrate moderate word- finding difficulties. - Attention: The patient was unable to repeat five single digits forwards or reverse and demonstrated poor accuracy with serial seven subtraction. - Orientation: The patient stated the month, day of week, place, and city. The patient was not oriented to year or date. *The patient demonstrated a result of +15/30 correlating to a continued moderate cognitive deficit (most notably with immediate and delayed memory tasks ). Assessment Assessment Current Status: Poor Progress Treatment Plan Continue Plan of Care Communication Comprehension: 3 Expression: 3 Social Cognition Social Interaction: 3 Problem Solvin Memory: 2 Speech Short Term Goals Short Term Goals Short Term Goals 1. The patient will demonstrate 80% accuracy with simple orientation questions with the use of an external aid. 2. The patient will display 80% accuracy with functional safety problem solving with mild clinician verbal cueing. 3. The patient will demonstrate and recall two memory strategies for use at home with mild clinician verbal cueing. Time Frame-STG: Two Weeks Speech Assessor Goals Assessor Goals 1. The patient will demonstrate improved cognitive linguistic skills for increased function and safety with ADL's. Time Frame: Four Weeks Comprehension: 3 Expression: 4 Social Interaction: 4 Problem Solvin Memory: 3 Speech-Plan Treatment Plan Speech Therapy Treatment Plan: Continue Plan of Care Continue skilled speech pathology intervention to target functional cognitive improvement. Treatment Duration: Dec 06, 2016 # of days/week Four to five. Visits Per Week: Four to five. Minutes/Day (M-F): 30 Rehab Potential: Guarded Safety Risks/Education Teaching Recipient: Patient Teaching Methods: Discussion Response to Teaching: Verbalize Understanding Education Topics Provided: Results, Recommendations, Progress Time Speech Therapy Time In: 08:45 Speech Therapy Time Out: 09:15 Total Billed Time: 30 Billed Treatment Time 1, MARIA FERNANDA SALEEM November 16, 2016 10:01
--- NOTE | 2016-11-16 11:11 | Physical Therapy Daily Note ---
PT Daily Note-Current Subjective Pt sitting in recliner upon arrival. Pt reports no pain. Pt agrees to PT this morning. Pain Location: No Pain Reported Mental Status Patient Orientation: Person, Place Attachments: Oxygen (4L) Transfers Functional [place] Measure 0=Not Assessed/NA 4=Minimal Assistance 1=Total Assistance 5=Supervision or Setup 2=Maximal Assistance 6=Modified [place] 3=Moderate Assistance 7=Complete IndependenceIRFPAI Quality Coding Scale 6 Independent with activity with or without an assistive device 5 Patient requires set up or clean up by helper. Patient completes activity by themselves 4 Supervision or touching assist (CGA). [place] provide cues , steadying assist 3 The helper provides less than half the effort to complete the activity 2 The helper provides more than half the effort to complete the activity 1 Dependent. The helper does all the effort to complete an activity 7 Patient refused to complete or attempt activity 9 The patient did not perform the activity before the current illness or injury 88 Not attempted due to Medical conditions or safety concerns Scootin Sit to/from Stand: 5 Sit to Stand (QC): 4 Weight Bearing Weight Bearing Restriction: Full Weight Bearing Location Restriction: LE Bilateral Gait Training Does the Patient Walk?: Yes Distance (FIM): 3=150 ft Distance: 150' Walk 10 feet (QC): 5 Walk 50 ft with 2 Turns(QC): 5 Walk 150 ft (QC): 5 Gait Level of Assist: 5 Gait Persons Needed: 1 Gait Assistive Device: FWW Exercises Seated Therapy Exercises: Ankle pumps, Long arc quads, Hip flexion, Kicking activity, Hip abd/add Seated Reps: 15 NuStep Minutes: 10 NuStep Workload: 2 Treatments Pt transferred from recliner to standing using FWW at [facility]. Pt ambulated to Therapy Gym using FWW at [facility]. Pt used NuStep for 10m at Workload 2 then completed Seated EX for strengthening and endurance to improve balance. Pt returned to room to rest in recliner with all needs met at end of tx. Assessment Current Status: Fair Progress Pt is [place] and takes VC & PC to complete task. Pt is confused at times and needs redirection. PT Short Term Goals Short Term Goals Time Frame: November 11, 2016 Transfers (B,C,W/C) (FIM): 4 (CGA) Gait (FIM): 4 (CGA) Gait Distance Comment: 150' Gait Level of Assist: 4 (CGA) Gait Assistive Device: FWW Wheelchair Distance: 150' PT Jail Goals Jail Goals PT Jail Goals Time Frame: November 25, 2016 Transfers (B,C,W/C) (FIM): 5 Sit to Lying (QC): 4 Lying-Sitting on Side/Bed(QC): 5 Sit to Stand (QC): 4 Rollin Roll Left to Right (QC): 4 Chair/Ruy-ev-Lblhd Xfer(QC): 4 Car Transfer (QC): 4 Gait (FIM): 5 Distance: 200' Walk 10 feet (QC): 4 Walk 10ft-Uneven Surface(QC): 4 Walk 50ft with 2 Turns (QC): 4 Walk 150 ft (QC): 4 Gait Level of Assist: 5 Gait Assistive Device: FWW Stairs (FIM): 2 # of Steps: 4 1 Step (curb) (QC): 4 4 Steps (QC): 4 12 Steps (QC): 88 Stairs Level Of Assist: 4 (CGA) Picking up an Object (QC): 88 PT Plan Problem List Problem List: Activity Tolerance, Functional Strength, Safety, Balance, Gait, Transfer Treatment/Plan Treatment Plan: Continue Plan of Care Treatment Plan: Bed Mobility, Education, Functional Activity [place], Functional Strength, Group Therapy, Gait, Safety, Therapeutic Exercise, Transfers Treatment Duration: November 25, 2016 Visits Per Week: 10-11 Minutes/Day (M-F): 60-90 Minutes/Day (Sat/Hol[place]): 15-30 Safety Risks/Education Patient Education: Gait Training, Transfer Techniques, Correct Positioning, Safety Issues Teaching Recipient: Patient Teaching Methods: Discussion Response to Teaching: Reinforcement Needed Time/GCodes Time In: 1030 Time Out: 1115 Total Billed Treatment Time: 45 Total Billed Treatment visit, EX X2 (30m) & GT (15m) KASEY KATE PTA November 16, 2016 11:10
--- NOTE | 2016-11-16 13:05 | Occupational Ther Daily Note ---
OT Current Status-Daily Note Subjective Pt sitting in chair, agrees to treatment. Mental Status/Objective Functional [place] Measure 0=Not Assessed/NA 4=Minimal Assistance 1=Total Assistance 5=Supervision or Setup 2=Maximal Assistance 6=Modified [place] 3=Moderate Assistance 7=Complete [place] ADL-Treatment Pt donned bilateral shoes with minimal assistance and increased time. Pt states "I'm just not getting it today." Sit to stand with supervision. Gait to restroom with FWW, cues for safety. Grooming completed at sink. Pt able to wash face and complete oral care with increased time. Pt requires multiple skilled cues for sequencing and task completion. Pt initially standing during grooming, but finished while seated secondary to fatigue. Pt returned to chair with FWW, assist to manage oxygen tubing. Functional [place] Measure 0=Not Assessed/NA 4=Minimal Assistance 1=Total Assistance 5=Supervision or Setup 2=Maximal Assistance 6=Modified [place] 3=Moderate Assistance 7=Complete IndependenceIRFPAI Quality Coding Scale 6 Independent with activity with or without an assistive device 5 Patient requires set up or clean up by helper. Patient completes activity by themselves 4 Supervision or touching assist (CGA). [place] provide cues , steadying assist 3 The helper provides less than half the effort to complete the activity 2 The helper provides more than half the effort to complete the activity 1 Dependent. The helper does all the effort to complete an activity 7 Patient refused to complete or attempt activity 9 The patient did not perform the activity before the current illness or injury 88 Not attempted due to Medical conditions or safety concerns Grooming (FIM): 5 Oral Hygiene (QC): 4 On/Off Footwear (QC): 3 Other Treatment Pt completed bilateral UE exercises to promote increased strength needed for ADLs and transfers. Pt performed shoulder flexion, abduction, biceps curls, and triceps extension exercises x15 reps with mild resistance(yellow) theraband. Rest breaks between exercises. Pt requires cues for proper exercise technique. Pt sitting in chair with needs met and chair alarm in place after session. OT Short Term Goals Short Term Goals Time Frame: November 11, 2016 Bathing(FIM): 4 Lower Body Dressing(FIM): 4 Toileting(FIM): 4 Transfers (B,C,W/C) (FIM): 4 (CGA) 1=Demonstrate adherence to instructed precautions during ADL tasks. 2=Patient will verbalize/demonstrate understanding of assistive devices/ modifications for ADL. 3=Patient will improve strength/tolerance for activity to enable patient to perform ADL's. OT Record Center Specialist Goals Alf Goals Time Frame: November 25, 2016 Eating (FIM): 6 Eating (QC): 6 Groomin Oral Hygiene (QC): 6 Bathing(FIM): 5 Shower/Bathe Self (QC): 5 Upper Body Dressing(FIM): 5 Upper Body Dressing (QC): 5 Lower Body Dressing(FIM): 5 Lower Body Dressing (QC): 5 On/Off Footwear (QC): 5 Toileting(FIM): 5 Toileting Hygiene (QC): 5 Toilet/Commode Transfer(FIM): 5 Toilet/Commode Transfer (QC): 5 Shower Transfer(FIM): 5 Comprehension(FIM): 3 Expression (FIM): 4 Social Interaction(FIM): 4 Problem Solving(FIM): 3 Memory(FIM): 3 Additional Goals: 1-Demonstrate ADL Tasks, 2-Verbalize Understanding, 3- ImproveStrength/Issa 1=Demonstrate adherence to instructed precautions during ADL tasks. 2=Patient will verbalize/demonstrate understanding of assistive devices/ modifications for ADL. 3=Patient will improve strength/tolerance for activity to enable patient to perform ADL's. OT Education/Plan Problem List/Assessment Pt to benefit from skilled OT intervention for ADL training, transfers, strengthening, and safety education to maximize level of function and allow safe return home with family support. Discharge Recommendations Plan/Recommendations: Continue POC Treatment Plan/Plan of Care Patient would benefit from OT for education, treatment and training to promote independence in ADL's, mobility, safety and/or upper extremity function for ADL' s. Plan of Care: ADL Retraining, Functional Mobility, Group Exercise/Act as Ind, UE Funct Exercise/Act, UE Neuromus Re-Ed/Coord Treatment Duration: November 25, 2016 Visits Per Week: 10-12 Minutes/Day (M-F): 60-90 Minutes/Day (Sat/Holgu[place]): PRN Agreement: Yes Rehab Potential: Guarded Time/GCodes Start Time: 09:15 Stop Time: 10:00 Total Time Billed (hr/min): 45 Billed Treatment Time 1 visit, ADLx2(25minutes), EX(20minutes) ZANDER BERMUDEZ OT November 16, 2016 13:05
--- NOTE | 2016-11-16 15:55 | Physical Therapy Daily Note ---
PT Daily Note-Current Subjective Pt sitting in recliner upon arrival. Pt appears more confused this afternoon than pt did in morning tx. PT wonders if pt might have some Sundowners affecting performance in afternoon. Pt agrees to PT although needs redirection frequently during tx. Mental Status Patient Orientation: Person, Confused, Place Attachments: Oxygen (4L) Transfers Functional [place] Measure 0=Not Assessed/NA 4=Minimal Assistance 1=Total Assistance 5=Supervision or Setup 2=Maximal Assistance 6=Modified [place] 3=Moderate Assistance 7=Complete IndependenceIRFPAI Quality Coding Scale 6 Independent with activity with or without an assistive device 5 Patient requires set up or clean up by helper. Patient completes activity by themselves 4 Supervision or touching assist (CGA). [place] provide cues , steadying assist 3 The helper provides less than half the effort to complete the activity 2 The helper provides more than half the effort to complete the activity 1 Dependent. The helper does all the effort to complete an activity 7 Patient refused to complete or attempt activity 9 The patient did not perform the activity before the current illness or injury 88 Not attempted due to Medical conditions or safety concerns Scootin Sit to/from Stand: 5 Sit to Stand (QC): 5 Weight Bearing Weight Bearing Restriction: Full Weight Bearing Location Restriction: LE Bilateral Gait Training Does the Patient Walk?: Yes Distance (FIM): 1=up to 49 ft Distance: 20' Walk 10 feet (QC): 5 Gait Level of Assist: 5 Gait Persons Needed: 1 Gait Assistive Device: FWW Pt wants to walk w/o FWW but PT reminds pt the safety need to use FWW. Pt's gait is slow and almost Parkinsonian. Treatments PT spends first part of tx giving pt education over what PT is seeing pt for and why Last Greaser would be visiting with family after Monday weekly mtg. Pt then reports needing to use restroom and gets up on his own w/o FWW and attempts to walk to restroom. PT gives redirection to pt about safety and need to use FWW as well as walk with staff to prevent falls. Pt returns to recliner to rest after using restroom. Pt has visitors come to room at end of tx. Pt is left with all needs met at end of tx. Assessment Current Status: Poor Progress Pt continues to be confused especially in afternoon tx sessions. Pt is [place] so communication is difficult. Pt has difficulties with cognitive awareness in regards to safety in room. PT Short Term Goals Short Term Goals Time Frame: November 11, 2016 Transfers (B,C,W/C) (FIM): 4 (CGA) Gait (FIM): 4 (CGA) Gait Distance Comment: 150' Gait Level of Assist: 4 (CGA) Gait Assistive Device: FWW Wheelchair Distance: 150' PT Personnel Adviser Goals [facility] Goals PT Personnel Adviser Goals Time Frame: November 25, 2016 Transfers (B,C,W/C) (FIM): 5 Sit to Lying (QC): 4 Lying-Sitting on Side/Bed(QC): 5 Sit to Stand (QC): 4 Rollin Roll Left to Right (QC): 4 Chair/[id number] Xfer(QC): 4 Car Transfer (QC): 4 Gait (FIM): 5 Distance: 200' Walk 10 feet (QC): 4 Walk 10ft-Uneven Surface(QC): 4 Walk 50ft with 2 Turns (QC): 4 Walk 150 ft (QC): 4 Gait Level of Assist: 5 Gait Assistive Device: FWW Stairs (FIM): 2 # of Steps: 4 1 Step (curb) (QC): 4 4 Steps (QC): 4 12 Steps (QC): 88 Stairs Level Of Assist: 4 (CGA) Picking up an Object (QC): 88 PT Plan Problem List Problem List: Activity Tolerance, Functional Strength, Safety, Balance, Gait, Transfer, Bed Mobility Treatment/Plan Treatment Plan: Continue Plan of Care Treatment Plan: Bed Mobility, Education, Functional Activity [place], Functional Strength, Group Therapy, Gait, Safety, Therapeutic Exercise, Transfers Treatment Duration: November 25, 2016 Visits Per Week: 10-11 Minutes/Day (M-F): 60-90 Minutes/Day (Sat/[place]): 15-30 Safety Risks/Education Patient Education: Gait Training, Transfer Techniques, Correct Positioning, Safety Issues Teaching Recipient: Patient Teaching Methods: Discussion Response to Teaching: Reinforcement Needed Time/GCodes Time In: 1400 Time Out: 1430 Total Billed Treatment Time: 30 Total Billed Treatment visit, FA X2 (30m) KASEY KATE PTA November 16, 2016 15:55
[2016-11-16] MEDS: warFARin 5 MG (COUMADIN) TAB PO SCH (17:08)
--- NOTE | 2016-11-16 17:13 | PM & R (SOAP) Progress Note ---
Subjective Subjective/Events-last exam Patient was seen in his room this AM Patient remains on 02 supplementation by N/ C.Patient min assist for transfers INR therapeutic U/A negative Objective Exam Last Set of Vital Signs Vital Signs Date Time Temp Pulse Resp B/P (MAP) Pulse Ox O2 Delivery O2 Flow Rate FiO2 11/16/16 14:56 91 3.00 11/16/16 05:46 96.8 82 18 98/56 11/10/16 05:00 Room Air Capillary Refill : I&O Intake and Output 11/16/16 00:00 Intake Total 840 ml Balance 840 ml Intake Oral 840 ml # Voids 8 # Bowel Movements 1 General: Alert, Cooperative, No Acute Distress HEENT: Atraumatic, PERRLA, EOMI, Mucous Memb Moist/[place] Neck: Supple, No JVD Lungs: Clear to Auscultation Heart: Regular Rate Abdomen: Normal Bowel Sounds, Soft, No Tenderness Extremities: No Edema Neuro: Other (generalized weakness memory loss) Results Lab Laboratory Tests 11/13/16 20:48: Glucometer 140H 11/14/16 05:52: Glucometer 88 11/14/16 08:18: White Blood Count 6.7, Red Blood Count 4.29L, Hemoglobin 13.8, Hematocrit 42, Mean Corpuscular Volume 98, Mean Corpuscular Hemoglobin 32, Mean Corpuscular Hemoglobin Concent 33, Red Cell Distribution Width 14.0, Platelet Count 187, Mean Platelet Volume 9.7, Neutrophils (%) (Auto) 68, Lymphocytes (%) (Auto) 20, Monocytes (%) (Auto) 8, Eosinophils (%) (Auto) 4, Basophils (%) (Auto) 0, Neutrophils # (Auto) 4.6, Lymphocytes # (Auto) 1.4, Monocytes # (Auto) 0.5, Eosinophils # (Auto) 0.3, Basophils # (Auto) 0.0, Sodium Level 142, Potassium Level 3.9, Chloride Level 108H, Carbon Dioxide Level 28, Anion Gap 6, Blood Urea Nitrogen 21H, Creatinine 0.83, Estimat Glomerular Filtration Rate > 60, BUN /Creatinine Ratio 25, Glucose Level 134H, Calcium Level 9.0, Total Bilirubin 0.5 , Aspartate Amino Transf (AST/SGOT) 17, Alanine Aminotransferase (ALT/SGPT) 10, Alkaline Phosphatase 88, Troponin I < 0.30, Total Protein 6.0L, Albumin 3.2 11/14/16 09:26: Glucometer 136H 11/14/16 14:48: Glucometer 117H 11/14/16 20:30: Glucometer 135H 11/15/16 05:19: Glucometer 105 11/15/16 10:01: Glucometer 168H 11/15/16 14:50: Glucometer 135H 11/15/16 17:35: Urine Color YELLOW, Urine Clarity CLEAR, Urine pH 5, Urine Specific [place] 1.020, Urine Protein NEGATIVE, Urine Glucose (UA) NEGATIVE, Urine Ketones NEGATIVE, Urine Nitrite NEGATIVE, Urine Bilirubin NEGATIVE, Urine Urobilinogen NORMAL, Urine Leukocyte Esterase NEGATIVE, Urine RBC (Auto) 1+H, Urine RBC 2-5H , Urine WBC RARE, Urine Squamous Epithelial Cells 0-2, Urine Crystals NONE, Urine Bacteria NONE, Urine Casts NONE, Urine Mucus SMALLH, Urine Culture Indicated NO 11/15/16 19:59: Glucometer 130H 11/16/16 05:05: Glucometer 97 11/16/16 05:24: Prothrombin Time 24.0H, INR Comment 2.2H 11/16/16 09:48: Glucometer 148H 11/16/16 14:58: Glucometer 106 Assessment/Plan Assessment 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
[2016-11-16 18:23] VITALS: BP 99/63
[2016-11-16] MEDS: GABAPENTIN 300 MG (NEURONTIN) CAP PO SCH (20:22)
[2016-11-16] MEDS: ATORVASTATIN 40 MG (LIPITOR) TABLET PO SCH (20:22)
[2016-11-16] MEDS: DONEPEZIL 10 MG (ARICEPT) TAB PO SCH (20:22)
[2016-11-16] MEDS: LATANOPROST 0.005% (XALATAN) OPHTH SOLN 2.5 ML OU SCH (21:13)
[2016-11-17] MEDS: RT-ALBUTEROL/IPRATROPIUM 3 ML (DUONEB) VIAL INH SCH ×4 (02:16→21:00)
[2016-11-17 05:57] VITALS: BP 97/54
[2016-11-17] MEDS: RT-BUDESONIDE NEBS 0.5 MG/2ML (PULMICORT) AMP INH SCH ×2 (06:31→21:24)
[2016-11-17] MEDS: ARFORMOTEROL 15 MCG/2 ML (BROVANA) INH SOLUTIION IH SCH ×2 (06:31→21:24)
[2016-11-17] MEDS: CALCIUM ACETATE 667 MG PO SCH ×2 (06:37→16:57)
[2016-11-17] MEDS: inSUlin ASPART (NovoLOG) 1 UNIT/0.01 ML (CHARGE PER UNIT) SC SCH ×4 (06:37→22:02)
[2016-11-17] MEDS: OMEPRAZOLE 20 MG (PriLOSEC) CAP NON-FORMULARY PO SCH (06:37)
[2016-11-17] MEDS: FOLIC ACID 1 MG TAB PO SCH (06:37)
--- NOTE | 2016-11-17 08:34 | Progress Note (SOAP) ---
Subjective Subjective/Events-last exam CVA. Patient was confused today. Patient answering questions better Objective Exam Vital Signs Date Time Temp Pulse Resp B/P (MAP) Pulse Ox O2 Delivery O2 Flow Rate FiO2 11/17/16 06:35 93 3.00 11/17/16 06:31 93 3.00 11/17/16 05:57 96.4 64 18 97/54 93 3.00 11/17/16 02:18 3 11/16/16 20:25 3.00 11/16/16 20:24 96 3.00 11/16/16 20:15 3.00 11/16/16 18:23 97.0 96 18 99/63 92 3.00 11/16/16 14:56 91 3.00 11/16/16 09:00 3.00 I & O 11/17/16 07:00 Intake Total 850 ml Balance 850 ml Capillary Refill : General Appearance: No Apparent Distress, WD/WN Results Lab Laboratory Tests 11/16/16 09:48: Glucometer 148H 11/16/16 14:58: Glucometer 106 11/16/16 19:55: Glucometer 126H 11/17/16 05:02: Glucometer 107 Assessment/Plan Assessment/Plan Assess & Plan/Chief Complaint CVA. COPD. Parkinson disease. DVT. Dementia.. Patient on 3 L of oxygen. Patient slept well last night. . 11/08/16. CVA. COPD. Parkinson disease. DVT. Dementia. Patient has less confusion today. . 11/09/16. CVA. COPD. Parkinson disease. DVT. Dementia. Noa of hearing. . 11/10/16. CVA. COPD. Parkinson disease. Dementia. Patient voices no complaints today. . 11/11/16. CVA. COPD Parkinson disease. DVT. Dementia. . CVA. COPD. Parkinson disease. DVT>Dementia. Numbness in arm. . 11/15/16. CVA. COPD. Parkinson disease. Dementia. Patient doing better today. Patient not having any problems. . 11/16. CVA. COPD. Parkinson disease. Dementia. Patient improving. . 11/17/16. CVA. COPD. Parkinson disease. Dementia. Patient was confused today this morning Clinical Quality Measures DVT/VTE Risk/Contraindication: Risk Factor Score Per Nursin RFS Level Per Nursing on Admit: 4+=Very High GELLENDER,DENVER A DO November 17, 2016 08:33
--- NOTE | 2016-11-17 09:16 | PM & R (SOAP) Progress Note ---
Subjective Subjective/Events-last exam Patient was seen in his room this AM Patient min assist for transfers Having Morning adls with OT for bathing and dressing Objective Exam Last Set of Vital Signs Vital Signs Date Time Temp Pulse Resp B/P (MAP) Pulse Ox O2 Delivery O2 Flow Rate FiO2 11/17/16 06:35 93 3.00 11/17/16 05:57 96.4 64 18 97/54 Capillary Refill : I&O Intake and Output 11/17/16 00:00 Intake Total 890 ml Balance 890 ml Intake Oral 890 ml # Voids 7 General: Alert, Cooperative, No Acute Distress HEENT: Atraumatic, PERRLA, EOMI, Mucous Memb Moist/[place] Neck: Supple, No JVD Lungs: Clear to Auscultation Heart: Regular Rate Abdomen: Normal Bowel Sounds, Soft, No Tenderness Extremities: No Edema Neuro: Other (generalized weakness memory loss) Results Lab Laboratory Tests 11/14/16 09:26: Glucometer 136H 11/14/16 14:48: Glucometer 117H 11/14/16 20:30: Glucometer 135H 11/15/16 05:19: Glucometer 105 11/15/16 10:01: Glucometer 168H 11/15/16 14:50: Glucometer 135H 11/15/16 17:35: Urine Color YELLOW, Urine Clarity CLEAR, Urine pH 5, Urine Specific [place] 1.020, Urine Protein NEGATIVE, Urine Glucose (UA) NEGATIVE, Urine Ketones NEGATIVE, Urine Nitrite NEGATIVE, Urine Bilirubin NEGATIVE, Urine Urobilinogen NORMAL, Urine Leukocyte Esterase NEGATIVE, Urine RBC (Auto) 1+H, Urine RBC 2-5H , Urine WBC RARE, Urine Squamous Epithelial Cells 0-2, Urine Crystals NONE, Urine Bacteria NONE, Urine Casts NONE, Urine Mucus SMALLH, Urine Culture Indicated NO 11/15/16 19:59: Glucometer 130H 11/16/16 05:05: Glucometer 97 11/16/16 05:24: Prothrombin Time 24.0H, INR Comment 2.2H 11/16/16 09:48: Glucometer 148H 11/16/16 14:58: Glucometer 106 11/16/16 19:55: Glucometer 126H 11/17/16 05:02: Glucometer 107 Assessment/Plan Assessment 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
[2016-11-17 09:34] VITALS: BP 98/63
[2016-11-17] MEDS: CYANOCOBALAMIN 500 MCG TAB (VITAMIN B-12) PO SCH (09:35)
[2016-11-17] MEDS: ASPIRIN 81 MG CHEW (CHILDREN'S ASA) PO SCH (09:35)
[2016-11-17] MEDS: MAGNESIUM OXIDE (MAG-OX)400 MG TAB PO SCH (09:35)
[2016-11-17] MEDS: SINEMET 25/250 (CARBIDOPA/LEVODOPA) TAB PO SCH ×4 (09:35→22:01)
[2016-11-17] MEDS: LORATADINE (CLARITIN) 10 MG TAB PO SCH (09:35)
--- NOTE | 2016-11-17 10:06 | Occupational Ther Daily Note ---
OT Current Status-Daily Note Subjective Pt sleeping in bed, woke to name. Pt agreed to therapy. Pt slightly confused over what he needed to do today. No c/o pain. Mental Status/Objective Patient Orientation: Person Functional [place] Measure 0=Not Assessed/NA 4=Minimal Assistance 1=Total Assistance 5=Supervision or Setup 2=Maximal Assistance 6=Modified [place] 3=Moderate Assistance 7=Complete [place] Attachments: Oxygen ADL-Treatment Pt was able to complete supine to sitting EOB with min A. Pt ambulated to sink in bathroom with CGA using FWW. Pt shaved self and complete grooming skills with SBA standing at the sink with FWW. Then ambulated and transferred into shower using shower bench, FWW and grabbars with CGA. Using shower bench, grabbars and hand held shower pt was able to complete bathing after set up with close SBA for safety. Pt tends to complete showering while standing under shower head. Pt able to dry self in standing with SBA. After set up and clothing placed in pt's preferred sequence pt is able to complete with only SBA today. Pt then requested to use urinal. Assist to place urinal then was able to complete rest of toileting by self. Pt ambulated to room and sat in recliner. DAILY opened milk container and pt was able to open rest of packages and containers then feed self with regular utensils. Safety measures in place, call light/phone in reach. AMMONIA BOX TENDER took over care. Functional [place] Measure 0=Not Assessed/NA 4=Minimal Assistance 1=Total Assistance 5=Supervision or Setup 2=Maximal Assistance 6=Modified [place] 3=Moderate Assistance 7=Complete IndependenceIRFPAI Quality Coding Scale 6 Independent with activity with or without an assistive device 5 Patient requires set up or clean up by helper. Patient completes activity by themselves 4 Supervision or touching assist (CGA). [place] provide cues , steadying assist 3 The helper provides less than half the effort to complete the activity 2 The helper provides more than half the effort to complete the activity 1 Dependent. The helper does all the effort to complete an activity 7 Patient refused to complete or attempt activity 9 The patient did not perform the activity before the current illness or injury 88 Not attempted due to Medical conditions or safety concerns Eating (FIM): 5 Grooming (FIM): 5 Bathing (FIM): 5 Upper Body (FIM): 5 Lower Body Dressing (FIM): 5 Toileting (FIM): 5 Transfers (B, C, W/C) (FIM): 4 Shower Transfer(FIM): 4 OT Short Term Goals Short Term Goals Time Frame: November 11, 2016 Bathing(FIM): 4 Lower Body Dressing(FIM): 4 Toileting(FIM): 4 Transfers (B,C,W/C) (FIM): 4 (CGA) 1=Demonstrate adherence to instructed precautions during ADL tasks. 2=Patient will verbalize/demonstrate understanding of assistive devices/ modifications for ADL. 3=Patient will improve strength/tolerance for activity to enable patient to perform ADL's. OT Nursing Home Goals Nursing Home Goals Time Frame: November 25, 2016 Eating (FIM): 6 Eating (QC): 6 Groomin Oral Hygiene (QC): 6 Bathing(FIM): 5 Shower/Bathe Self (QC): 5 Upper Body Dressing(FIM): 5 Upper Body Dressing (QC): 5 Lower Body Dressing(FIM): 5 Lower Body Dressing (QC): 5 On/Off Footwear (QC): 5 Toileting(FIM): 5 Toileting Hygiene (QC): 5 Toilet/Commode Transfer(FIM): 5 Toilet/Commode Transfer (QC): 5 Shower Transfer(FIM): 5 Comprehension(FIM): 3 Expression (FIM): 4 Social Interaction(FIM): 4 Problem Solving(FIM): 3 Memory(FIM): 3 Additional Goals: 1-Demonstrate ADL Tasks, 2-Verbalize Understanding, 3- ImproveStrength/[place] 1=Demonstrate adherence to instructed precautions during ADL tasks. 2=Patient will verbalize/demonstrate understanding of assistive devices/ modifications for ADL. 3=Patient will improve strength/tolerance for activity to enable patient to perform ADL's. OT Education/Plan Problem List/Assessment Pt to benefit from skilled OT intervention for ADL training, transfers, strengthening, and safety education to maximize level of function and allow safe return home with family support. Discharge Recommendations Plan/Recommendations: Continue POC Treatment Plan/Plan of Care Patient would benefit from OT for education, treatment and training to promote independence in ADL's, mobility, safety and/or upper extremity function for ADL' s. Plan of Care: ADL Retraining, Functional Mobility, Group Exercise/Act as Ind, UE Funct Exercise/Act, UE Neuromus Re-Ed/Coord Treatment Duration: November 25, 2016 Visits Per Week: 10-12 Minutes/Day (M-F): 60-90 Minutes/Day (Sat/[place]): PRN Agreement: Yes Rehab Potential: Guarded Time/GCodes Start Time: 07:00 Stop Time: 08:00 Total Time Billed (hr/min): 60 Billed Treatment Time 1 visit-ADL 4 (60 min) DOMINGO PIMENTEL November 17, 2016 10:06
--- NOTE | 2016-11-17 10:20 | Occupational Ther Daily Note ---
OT Current Status-Daily Note Subjective Pt alert, sitting in recliner finishing breakfast. PT/OT co-treated today with family education. Pt's grandson and visitor in room. Pt agreed to therapy. No c/o pain. Mental Status/Objective Functional [place] Measure 0=Not Assessed/NA 4=Minimal Assistance 1=Total Assistance 5=Supervision or Setup 2=Maximal Assistance 6=Modified [place] 3=Moderate Assistance 7=Complete [place] ADL-Treatment Functional [place] Measure 0=Not Assessed/NA 4=Minimal Assistance 1=Total Assistance 5=Supervision or Setup 2=Maximal Assistance 6=Modified [place] 3=Moderate Assistance 7=Complete IndependenceIRFPAI Quality Coding Scale 6 Independent with activity with or without an assistive device 5 Patient requires set up or clean up by helper. Patient completes activity by themselves 4 Supervision or touching assist (CGA). [place] provide cues , steadying assist 3 The helper provides less than half the effort to complete the activity 2 The helper provides more than half the effort to complete the activity 1 Dependent. The helper does all the effort to complete an activity 7 Patient refused to complete or attempt activity 9 The patient did not perform the activity before the current illness or injury 88 Not attempted due to Medical conditions or safety concerns Other Treatment PT worked on educating family on transfers, stairs and safe ambulation techniques. OT worked on activities of daily living and how pt completes these. OT recommended that pt given increased time to process each task and using minimal words for instructions. Pt is completing ADLs with CGA to SBA. After therapy, pt left in care of PT and grandson. Education OT Patient Education: Instructions to caregiver, Safety issues, Transfer techniques Teaching Recipient: Family Teaching Methods: Demonstration, Discussion Response to Teaching: Verbalize Understanding OT Short Term Goals Short Term Goals Time Frame: November 11, 2016 Bathing(FIM): 4 Lower Body Dressing(FIM): 4 Toileting(FIM): 4 Transfers (B,C,W/C) (FIM): 4 (CGA) 1=Demonstrate adherence to instructed precautions during ADL tasks. 2=Patient will verbalize/demonstrate understanding of assistive devices/ modifications for ADL. 3=Patient will improve strength/tolerance for activity to enable patient to perform ADL's. OT Air Intelligence Officer Goals Air Intelligence Officer Goals Time Frame: November 25, 2016 Eating (FIM): 6 Eating (QC): 6 Groomin Oral Hygiene (QC): 6 Bathing(FIM): 5 Shower/Bathe Self (QC): 5 Upper Body Dressing(FIM): 5 Upper Body Dressing (QC): 5 Lower Body Dressing(FIM): 5 Lower Body Dressing (QC): 5 On/Off Footwear (QC): 5 Toileting(FIM): 5 Toileting Hygiene (QC): 5 Toilet/Commode Transfer(FIM): 5 Toilet/Commode Transfer (QC): 5 Shower Transfer(FIM): 5 Comprehension(FIM): 3 Expression (FIM): 4 Social Interaction(FIM): 4 Problem Solving(FIM): 3 Memory(FIM): 3 Additional Goals: 1-Demonstrate ADL Tasks, 2-Verbalize Understanding, 3- ImproveStrength/[place] 1=Demonstrate adherence to instructed precautions during ADL tasks. 2=Patient will verbalize/demonstrate understanding of assistive devices/ modifications for ADL. 3=Patient will improve strength/tolerance for activity to enable patient to perform ADL's. OT Education/Plan Problem List/Assessment Pt to benefit from skilled OT intervention for ADL training, transfers, strengthening, and safety education to maximize level of function and allow safe return home with family support. Discharge Recommendations Plan/Recommendations: Continue POC Treatment Plan/Plan of Care Patient would benefit from OT for education, treatment and training to promote independence in ADL's, mobility, safety and/or upper extremity function for ADL' s. Plan of Care: ADL Retraining, Functional Mobility, Group Exercise/Act as Ind, UE Funct Exercise/Act, UE Neuromus Re-Ed/Coord Treatment Duration: November 25, 2016 Visits Per Week: 10-12 Minutes/Day (M-F): 60-90 Minutes/Day (Sat/[place]): PRN Agreement: Yes Rehab Potential: Guarded Time/GCodes Start Time: 09:15 Stop Time: 09:30 Total Time Billed (hr/min): 15 Billed Treatment Time 1 visit-FA 1 (15 min) Co-treat with PT for family education ([id number]) DOMINGO PIMENTEL November 17, 2016 10:20
[2016-11-17] MEDS: FLUTICASONE NASAL SPRAY (FLONASE) 16 GM BTL NS SCH (10:22)
--- NOTE | 2016-11-17 10:26 | Speech Therapy Daily Note ---
Speech Daily Progress Note Subjective The patient was seated upright in recliner upon entrance (breakfast tray present ). The patient greeted the clinician appropriately and was agreeable to participation in the cognitive treatment session. Objective Orientation: At the beginning of the session, the patient was oriented to month and day of week. The patient was able to state the location where orientation information could be found in his room (white-board). At the close of the session, the patient stated the month, year, day of week, date, and city with the use of the external aid (white-board, independently). External and Internal Memory Strategies: External and internal memory strategies were discussed, demonstrated and reviewed on this date. The patient stated he keeps a calendar by his back door which he records important information on. Per patient, he checks the calendar "all the time" throughout the day. Additionally, the patient reported consistent use of a pill box which he organizes with the aid of his daughter weekly. The patient stated he commonly uses the internal memory strategy of visual imagery to recall information he is unable to write down. The patient was able to recall two memory aides at the close of the session. Assessment Assessment Current Status: Fair Progress Treatment Plan Continue Plan of Care Communication Comprehension: 3 Expression: 3 Social Cognition Social Interaction: 3 Problem Solvin Memory: 2 Speech Short Term Goals Short Term Goals Short Term Goals 1. The patient will demonstrate 80% accuracy with simple orientation questions with the use of an external aid. 2. The patient will display 80% accuracy with functional safety problem solving with mild clinician verbal cueing. 3. The patient will demonstrate and recall two memory strategies for use at home with mild clinician verbal cueing. Time Frame-STG: Two Weeks Speech Mcc Goals Mcc Goals 1. The patient will demonstrate improved cognitive linguistic skills for increased function and safety with ADL's. Time Frame: Four Weeks Comprehension: 3 Expression: 4 Social Interaction: 4 Problem Solvin Memory: 3 Speech-Plan Treatment Plan Speech Therapy Treatment Plan: Continue Plan of Care Continue skilled speech pathology intervention to target functional problem solving, memory, and orientation. Treatment Duration: Dec 06, 2016 # of days/week Four to five. Visits Per Week: Four to five. Minutes/Day (M-F): 30 Rehab Potential: Guarded Safety Risks/Education Teaching Recipient: Patient Teaching Methods: Demonstration, Discussion Response to Teaching: Return Demonstration, Reinforcement Needed Education Topics Provided: External and Internal Memory Strategies Time Speech Therapy Time In: 08:15 Speech Therapy Time Out: 08:45 Total Billed Time: 30 Billed Treatment Time 1, MARIA FERNANDA SALEEM November 17, 2016 10:26
[2016-11-17] MEDS: guaiFENesin/DM (ROBITUSSIN DM) 10 ML UDC PO PRN ×2 (10:34→22:01)
--- NOTE | 2016-11-17 11:15 | Physical Therapy Daily Note ---
PT Daily Note-Current Subjective Pt sitting in recliner with OT, grandson and grandson's girlfriend present upon arrival. PT & OT will co-treat for family training since pt to discharge Monday (11/21). Pain Location: No Pain Reported Mental Status Patient Orientation: Person, Place Attachments: Oxygen Transfers Functional [place] Measure 0=Not Assessed/NA 4=Minimal Assistance 1=Total Assistance 5=Supervision or Setup 2=Maximal Assistance 6=Modified [place] 3=Moderate Assistance 7=Complete IndependenceIRFPAI Quality Coding Scale 6 Independent with activity with or without an assistive device 5 Patient requires set up or clean up by helper. Patient completes activity by themselves 4 Supervision or touching assist (CGA). [place] provide cues , steadying assist 3 The helper provides less than half the effort to complete the activity 2 The helper provides more than half the effort to complete the activity 1 Dependent. The helper does all the effort to complete an activity 7 Patient refused to complete or attempt activity 9 The patient did not perform the activity before the current illness or injury 88 Not attempted due to Medical conditions or safety concerns Scootin Sit to/from Stand: 5 Sit to Stand (QC): 5 Weight Bearing Weight Bearing Restriction: Full Weight Bearing Location Restriction: LE Bilateral Gait Training Does the Patient Walk?: Yes Distance (FIM): 3=150 ft Distance: 150' Walk 10 feet (QC): 5 Walk 50 ft with 2 Turns(QC): 5 Walk 150 ft (QC): 5 Gait Level of Assist: 5 Gait Persons Needed: 1 Gait Assistive Device: FWW Pt walks with slow and slight shuffle gait but is steady with no LOB. Wheelchair Training Does the Pt Use a Wheelchair?: No Stair Training Stair Training: Handrails/: 2 handrails #of Steps: 8 1 Step (curb) (QC): 4 4 Steps (QC): 4 12 Steps (QC): 4 Stairs: Pattern: Step to Level of Assist: 4 Treatments PT co-treated with OT for family education with grandson and grandson's gf that will be living w/pt. PT focused on safe transfers, stairs and ambulation w/ FWW. OT focused on sequencing and education on ADLs and how to communicate with pt more effectively to get better results with tasks. Pt transfers from recliner using FWW at [facility]. Pt ambulates using FWW at [facility]. Pt completed stairs at [facility] but needed VC for which way to turn to keep from getting tangled in O2 line upon descending stairs. Pt returned to room to rest in recliner at end of tx with all needs met. Assessment Current Status: Good Progress Pt is capable to complete tasks although sometimes struggles with cognitive processing and sequencing of tasks. PT Short Term Goals Short Term Goals Time Frame: November 11, 2016 Transfers (B,C,W/C) (FIM): 4 (CGA) Gait (FIM): 4 (CGA) Gait Distance Comment: 150' Gait Level of Assist: 4 (CGA) Gait Assistive Device: FWW Wheelchair Distance: 150' PT Outside Sales Consultant Goals Outside Sales Consultant Goals PT Intermediate Goals Time Frame: November 25, 2016 Transfers (B,C,W/C) (FIM): 5 Sit to Lying (QC): 4 Lying-Sitting on Side/Bed(QC): 5 Sit to Stand (QC): 4 Rollin Roll Left to Right (QC): 4 Chair/Fda-oh-Xxwyd Xfer(QC): 4 Car Transfer (QC): 4 Gait (FIM): 5 Distance: 200' Walk 10 feet (QC): 4 Walk 10ft-Uneven Surface(QC): 4 Walk 50ft with 2 Turns (QC): 4 Walk 150 ft (QC): 4 Gait Level of Assist: 5 Gait Assistive Device: FWW Stairs (FIM): 2 # of Steps: 4 1 Step (curb) (QC): 4 4 Steps (QC): 4 12 Steps (QC): 88 Stairs Level Of Assist: 4 (CGA) Picking up an Object (QC): 88 PT Plan Problem List Problem List: Activity Tolerance, Functional Strength, Safety, Balance, Gait Treatment/Plan Treatment Plan: Continue Plan of Care Treatment Plan: Bed Mobility, Education, Functional Activity Issa, Functional Strength, Group Therapy, Gait, Safety, Therapeutic Exercise, Transfers Treatment Duration: November 25, 2016 Visits Per Week: 10-11 Minutes/Day (M-F): 60-90 Minutes/Day (Sat/[place]): 15-30 Safety Risks/Education Patient Education: Gait Training, Transfer Techniques, Steps, Correct Positioning, Safety Issues Teaching Recipient: Patient, Family Teaching Methods: Demonstration, Discussion Response to Teaching: Verbalize Understanding Time/GCodes Time In: 915 Time Out: 1000 Total Billed Treatment Time: 45 Total Billed Treatment visit, FA X3 (45m) Co-treat w/OT [phone] (15m) KASEY KATE LAUNCH CHECK OUT November 17, 2016 11:15
--- NOTE | 2016-11-17 15:46 | Physical Therapy Daily Note ---
PT Daily Note-Current Subjective Pt sitting in recliner upon arrival. PT tests pt's orientation and knowledge of current events. Pt agrees to PT. Pain Location: No Pain Reported Mental Status Patient Orientation: Person, Place Attachments: Oxygen (4L) Transfers Functional [place] Measure 0=Not Assessed/NA 4=Minimal Assistance 1=Total Assistance 5=Supervision or Setup 2=Maximal Assistance 6=Modified [place] 3=Moderate Assistance 7=Complete IndependenceIRFPAI Quality Coding Scale 6 Independent with activity with or without an assistive device 5 Patient requires set up or clean up by helper. Patient completes activity by themselves 4 Supervision or touching assist (CGA). [place] provide cues , steadying assist 3 The helper provides less than half the effort to complete the activity 2 The helper provides more than half the effort to complete the activity 1 Dependent. The helper does all the effort to complete an activity 7 Patient refused to complete or attempt activity 9 The patient did not perform the activity before the current illness or injury 88 Not attempted due to Medical conditions or safety concerns Weight Bearing Weight Bearing Restriction: Full Weight Bearing Location Restriction: LE Bilateral Wheelchair Training Does the Pt Use a Wheelchair?: No Exercises Seated Therapy Exercises: Ankle pumps, Long arc quads, Hip flexion, Kicking activity Seated Reps: 15 Treatments Pt tests pt's knowledge of current events as well as orientation due to pt's confusion in pm (). Pt also completes Seated Ex in recliner. Pt rests in recliner at end of tx with all needs met. Assessment Current Status: Fair Progress Pt has more difficulty with tx in afternoon due to fatigue and confusion although will participate. PT Short Term Goals Short Term Goals Time Frame: November 11, 2016 Transfers (B,C,W/C) (FIM): 4 (CGA) Gait (FIM): 4 (CGA) Gait Distance Comment: 150' Gait Level of Assist: 4 (CGA) Gait Assistive Device: FWW Wheelchair Distance: 150' PT Chemical Plant Worker Goals Chemical Plant Worker Goals PT Detention Goals Time Frame: November 25, 2016 Transfers (B,C,W/C) (FIM): 5 Sit to Lying (QC): 4 Lying-Sitting on Side/Bed(QC): 5 Sit to Stand (QC): 4 Rollin Roll Left to Right (QC): 4 Chair/Dli-ty-Lhbrp Xfer(QC): 4 Car Transfer (QC): 4 Gait (FIM): 5 Distance: 200' Walk 10 feet (QC): 4 Walk 10ft-Uneven Surface(QC): 4 Walk 50ft with 2 Turns (QC): 4 Walk 150 ft (QC): 4 Gait Level of Assist: 5 Gait Assistive Device: FWW Stairs (FIM): 2 # of Steps: 4 1 Step (curb) (QC): 4 4 Steps (QC): 4 12 Steps (QC): 88 Stairs Level Of Assist: 4 (CGA) Picking up an Object (QC): 88 PT Plan Problem List Problem List: Activity Tolerance, Safety, Balance, Gait Treatment/Plan Treatment Plan: Continue Plan of Care Treatment Plan: Bed Mobility, Education, Functional Activity Issa, Functional Strength, Group Therapy, Gait, Safety, Therapeutic Exercise, Transfers Treatment Duration: November 25, 2016 Visits Per Week: 10-11 Minutes/Day (M-F): 60-90 Minutes/Day (Sat/[place]): 15-30 Safety Risks/Education Patient Education: Safety Issues Teaching Recipient: Patient Teaching Methods: Discussion Response to Teaching: Verbalize Understanding Time/GCodes Time In: 1430 Time Out: 1500 Total Billed Treatment Time: 30 Total Billed Treatment visit, FA (15m) & EX (15m) KASEY KATE PTA November 17, 2016 15:46
[2016-11-17 17:50] LABS: INR 2.1 (0.8-1.4); PROTHROMBIN TIME PATIENT 23.3 SEC (12.2-14.7)
[2016-11-17] MEDS: warFARin 7.5 MG (COUMADIN) TAB PO SCH (18:17)
[2016-11-17 18:19] VITALS: BP 103/65
[2016-11-17] MEDS: DONEPEZIL 10 MG (ARICEPT) TAB PO SCH (22:01)
[2016-11-17] MEDS: GABAPENTIN 300 MG (NEURONTIN) CAP PO SCH (22:01)
[2016-11-17] MEDS: ATORVASTATIN 40 MG (LIPITOR) TABLET PO SCH (22:01)
[2016-11-17] MEDS: LATANOPROST 0.005% (XALATAN) OPHTH SOLN 2.5 ML OU SCH (22:03)
[2016-11-18] MEDS: RT-ALBUTEROL/IPRATROPIUM 3 ML (DUONEB) VIAL INH SCH ×4 (02:25→19:24)
[2016-11-18 05:00] VITALS: BP 110/67
[2016-11-18 06:32] LABS: INR 2.5 (0.8-1.4); PROTHROMBIN TIME PATIENT 26.8 SEC (12.2-14.7)
[2016-11-18] MEDS: inSUlin ASPART (NovoLOG) 1 UNIT/0.01 ML (CHARGE PER UNIT) SC SCH ×4 (06:51→21:21)
[2016-11-18] MEDS: OMEPRAZOLE 20 MG (PriLOSEC) CAP NON-FORMULARY PO SCH (06:52)
[2016-11-18] MEDS: CALCIUM ACETATE 667 MG PO SCH ×2 (06:52→17:26)
[2016-11-18] MEDS: FOLIC ACID 1 MG TAB PO SCH (06:52)
[2016-11-18] MEDS: ASPIRIN 81 MG CHEW (CHILDREN'S ASA) PO SCH (07:43)
[2016-11-18] MEDS: SINEMET 25/250 (CARBIDOPA/LEVODOPA) TAB PO SCH ×4 (07:43→20:07)
[2016-11-18] MEDS: LORATADINE (CLARITIN) 10 MG TAB PO SCH (07:43)
[2016-11-18] MEDS: MAGNESIUM OXIDE (MAG-OX)400 MG TAB PO SCH (07:43)
[2016-11-18] MEDS: CYANOCOBALAMIN 500 MCG TAB (VITAMIN B-12) PO SCH (07:44)
[2016-11-18] MEDS: FLUTICASONE NASAL SPRAY (FLONASE) 16 GM BTL NS SCH (07:44)
--- NOTE | 2016-11-18 07:46 | PM & R (SOAP) Progress Note ---
Subjective Subjective/Events-last exam Patient was seen in his room this AM Slept Ok Remains o2 dependent by N/C Patient SBA for transfers and gait with WW. INR 2.5 Objective Exam Last Set of Vital Signs Vital Signs Date Time Temp Pulse Resp B/P (MAP) Pulse Ox O2 Delivery O2 Flow Rate FiO2 11/18/16 05:00 98.7 77 22 110/67 94 3.00 Capillary Refill : I&O Intake and Output 11/18/16 00:00 Intake Total 1060 ml Balance 1060 ml Intake Oral 1060 ml # Voids 7 # Bowel Movements 1 General: Alert, Cooperative, No Acute Distress HEENT: Atraumatic, PERRLA, EOMI, Mucous Memb Moist/[place] Neck: Supple, No JVD Lungs: Clear to Auscultation Heart: Regular Rate Abdomen: Normal Bowel Sounds, Soft, No Tenderness Extremities: No Edema Neuro: Other (generalized weakness memory loss) Results Lab Laboratory Tests 11/15/16 10:01: Glucometer 168H 11/15/16 14:50: Glucometer 135H 11/15/16 17:35: Urine Color YELLOW, Urine Clarity CLEAR, Urine pH 5, Urine Specific [place] 1.020, Urine Protein NEGATIVE, Urine Glucose (UA) NEGATIVE, Urine Ketones NEGATIVE, Urine Nitrite NEGATIVE, Urine Bilirubin NEGATIVE, Urine Urobilinogen NORMAL, Urine Leukocyte Esterase NEGATIVE, Urine RBC (Auto) 1+H, Urine RBC 2-5H , Urine WBC RARE, Urine Squamous Epithelial Cells 0-2, Urine Crystals NONE, Urine Bacteria NONE, Urine Casts NONE, Urine Mucus SMALLH, Urine Culture Indicated NO 11/15/16 19:59: Glucometer 130H 11/16/16 05:05: Glucometer 97 11/16/16 05:24: Prothrombin Time 24.0H, INR Comment 2.2H 11/16/16 09:48: Glucometer 148H 11/16/16 14:58: Glucometer 106 11/16/16 19:55: Glucometer 126H 11/17/16 05:02: Glucometer 107 11/17/16 11:28: Glucometer 146H 11/17/16 15:31: Glucometer 130H 11/17/16 17:22: Prothrombin Time 23.3H, INR Comment 2.1H 11/17/16 20:23: Glucometer 148H 11/18/16 05:28: Glucometer 90 5/19/17 06:01: Prothrombin Time 26.8H, INR Comment 2.5H Assessment/Plan Assessment 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
--- NOTE | 2016-11-18 08:24 | Occupational Ther Daily Note ---
OT Current Status-Daily Note Subjective Pt alert, lying in bed. Pt agreed to therapy. No c/o pain at this time. Mental Status/Objective Patient Orientation: Person, Place, Time, Situation Functional [place] Measure 0=Not Assessed/NA 4=Minimal Assistance 1=Total Assistance 5=Supervision or Setup 2=Maximal Assistance 6=Modified [place] 3=Moderate Assistance 7=Complete [place] Attachments: Oxygen ADL-Treatment Pt requested sponge bath today. Pt ambulated into bathroom and transferred to toilet using FWW with [facility]. Pt was able to complete toileting with mod I. Pt ambulated to sink and completed sponge bath with S[facility]. Pt then ambulated back to toilet to don clothing. After set up, pt donned clothing with 1 cue. Pt initiated donning shirt onto feet. Pt needed to be redirected to what article of clothing he was putting on then he corrected. Pt able to completed rest of donning clothing by self. Pt then ambulated to sink and completed grooming. Pt ambulated to chair to eat breakfast. Set up assistance needed to open small containers. Pt able to use eating utensils to cook and feed self. After therapy, pt sitting in recliner with call light/phone in reach. Functional [place] Measure 0=Not Assessed/NA 4=Minimal Assistance 1=Total Assistance 5=Supervision or Setup 2=Maximal Assistance 6=Modified [place] 3=Moderate Assistance 7=Complete IndependenceIRFPAI Quality Coding Scale 6 Independent with activity with or without an assistive device 5 Patient requires set up or clean up by helper. Patient completes activity by themselves 4 Supervision or touching assist (CGA). [place] provide cues , steadying assist 3 The helper provides less than half the effort to complete the activity 2 The helper provides more than half the effort to complete the activity 1 Dependent. The helper does all the effort to complete an activity 7 Patient refused to complete or attempt activity 9 The patient did not perform the activity before the current illness or injury 88 Not attempted due to Medical conditions or safety concerns Eating (FIM): 5 Grooming (FIM): 6 Bathing (FIM): 5 Upper Body (FIM): 5 Lower Body Dressing (FIM): 5 Toileting (FIM): 6 Transfers (B, C, W/C) (FIM): 5 Toilet/Commode Transfer (FIM): 5 OT Short Term Goals Short Term Goals Time Frame: November 11, 2016 Bathing(FIM): 4 Lower Body Dressing(FIM): 4 Toileting(FIM): 4 Transfers (B,C,W/C) (FIM): 4 (CGA) 1=Demonstrate adherence to instructed precautions during ADL tasks. 2=Patient will verbalize/demonstrate understanding of assistive devices/ modifications for ADL. 3=Patient will improve strength/tolerance for activity to enable patient to perform ADL's. OT Assisted Goals Assisted Goals Time Frame: November 25, 2016 Eating (FIM): 6 Eating (QC): 6 Groomin Oral Hygiene (QC): 6 Bathing(FIM): 5 Shower/Bathe Self (QC): 5 Upper Body Dressing(FIM): 5 Upper Body Dressing (QC): 5 Lower Body Dressing(FIM): 5 Lower Body Dressing (QC): 5 On/Off Footwear (QC): 5 Toileting(FIM): 5 Toileting Hygiene (QC): 5 Toilet/Commode Transfer(FIM): 5 Toilet/Commode Transfer (QC): 5 Shower Transfer(FIM): 5 Comprehension(FIM): 3 Expression (FIM): 4 Social Interaction(FIM): 4 Problem Solving(FIM): 3 Memory(FIM): 3 Additional Goals: 1-Demonstrate ADL Tasks, 2-Verbalize Understanding, 3- ImproveStrength/Issa 1=Demonstrate adherence to instructed precautions during ADL tasks. 2=Patient will verbalize/demonstrate understanding of assistive devices/ modifications for ADL. 3=Patient will improve strength/tolerance for activity to enable patient to perform ADL's. OT Education/Plan Problem List/Assessment Pt to benefit from skilled OT intervention for ADL training, transfers, strengthening, and safety education to maximize level of function and allow safe return home with family support. Discharge Recommendations Plan/Recommendations: Continue POC Treatment Plan/Plan of Care Patient would benefit from OT for education, treatment and training to promote independence in ADL's, mobility, safety and/or upper extremity function for ADL' s. Plan of Care: ADL Retraining, Functional Mobility, Group Exercise/Act as Ind, UE Funct Exercise/Act, UE Neuromus Re-Ed/Coord Treatment Duration: November 25, 2016 Visits Per Week: 10-12 Minutes/Day (M-F): 60-90 Minutes/Day (Sat/[place]): PRN Agreement: Yes Rehab Potential: Guarded Time/GCodes Start Time: 07:00 Stop Time: 08:15 Total Time Billed (hr/min): 75 Billed Treatment Time 1 visit-ADL 5 (75 min) DOMINGO PIMENTEL November 18, 2016 08:24
[2016-11-18] MEDS: ARFORMOTEROL 15 MCG/2 ML (BROVANA) INH SOLUTIION IH SCH ×2 (08:44→19:23)
[2016-11-18] MEDS: RT-BUDESONIDE NEBS 0.5 MG/2ML (PULMICORT) AMP INH SCH ×2 (08:44→19:23)
--- NOTE | 2016-11-18 08:46 | Progress Note (SOAP) ---
Subjective Subjective/Events-last exam PATIENT MORE ALERT THIS MORNING>Patient having 1 problems. Patient gets short of breath with exertion Patient not complaining this morning. CVA. Dementia Objective Exam Vital Signs Date Time Temp Pulse Resp B/P (MAP) Pulse Ox O2 Delivery O2 Flow Rate FiO2 11/18/16 05:00 98.7 77 22 110/67 94 3.00 11/18/16 02:25 98 3.00 11/17/16 21:30 96 3.00 11/17/16 21:25 96 3.00 11/17/16 21:00 3.00 11/17/16 18:19 96.4 96 20 103/65 95 3.00 11/17/16 14:10 93 3.00 11/17/16 09:34 83 18 98/63 95 3.00 I & O 11/18/16 07:00 Intake Total 1360 ml Output Total 375 ml Balance 985 ml Capillary Refill : General Appearance: No Apparent Distress, WD/WN HEENT: Normal ENT Inspection Neck: Normal Inspection Respiratory: No Accessory Muscle Use, No Respiratory Distress Cardiovascular: Regular Rate, Rhythm Results Lab Laboratory Tests 11/17/16 11:28: Glucometer 146H 11/17/16 15:31: Glucometer 130H 11/17/16 17:22: Prothrombin Time 23.3H, INR Comment 2.1H 11/17/16 20:23: Glucometer 148H 11/18/16 05:28: Glucometer 90 11/18/16 06:01: Prothrombin Time 26.8H, INR Comment 2.5H Assessment/Plan Assessment/Plan Assess & Plan/Chief Complaint CVA. COPD. Parkinson disease. DVT. Dementia.. Patient on 3 L of oxygen. Patient slept well last night. . 11/08/16. CVA. COPD. Parkinson disease. DVT. Dementia. Patient has less confusion today. . 11/09/16. CVA. COPD. Parkinson disease. DVT. Dementia. Noa of hearing. . 11/10/16. CVA. COPD. Parkinson disease. Dementia. Patient voices no complaints today. . 11/11/16. CVA. COPD Parkinson disease. DVT. Dementia. . CVA. COPD. Parkinson disease. DVT>Dementia. Numbness in arm. . 11/15/16. CVA. COPD. Parkinson disease. Dementia. Patient doing better today. Patient not having any problems. . 11/16. CVA. COPD. Parkinson disease. Dementia. Patient improving. . 11/17/16. CVA. COPD. Parkinson disease. Dementia. Patient was confused today this morning. . 11/18/16. CVA. COPD. Dementia. Patient not confused this morning.. Patient having more sundown proble Clinical Quality Measures DVT/VTE Risk/Contraindication: Risk Factor Score Per Nursin RFS Level Per Nursing on Admit: 4+=Very High DENVER KIM DO November 18, 2016 08:46
--- NOTE | 2016-11-18 09:51 | Speech Therapy Daily Note ---
Speech Daily Progress Note Subjective The patient was seated upright in chair upon entrance. The patient greeted the clinician appropriately and was agreeable to language therapy on this date. To note, the patient did report increased fatigue and was transferred to his bed mid-therapy. Objective Word-Finding: The patient was provided a specific category, as well as, a specific letter by the clinician. The patient was asked to state an item which started with the letter and fit into the category. The patient demonstrated 73% accuracy with moderate clinician verbal cueing. Orientation: The patient was able to state the month, year, and day of week ( independently) at the initiation and close of the treatment session. Assessment Assessment Current Status: Fair Progress Treatment Plan Continue Plan of Care Communication Comprehension: 3 Expression: 3 Social Cognition Social Interaction: 3 Problem Solvin Memory: 2 Speech Short Term Goals Short Term Goals Short Term Goals 1. The patient will demonstrate 80% accuracy with simple orientation questions with the use of an external aid. 2. The patient will display 80% accuracy with functional safety problem solving with mild clinician verbal cueing. 3. The patient will demonstrate and recall two memory strategies for use at home with mild clinician verbal cueing. Time Frame-STG: Two Weeks Speech Rehabilitation Clerk Goals Rehabilitation Clerk Goals 1. The patient will demonstrate improved cognitive linguistic skills for increased function and safety with ADL's. Time Frame: Four Weeks Comprehension: 3 Expression: 4 Social Interaction: 4 Problem Solvin Memory: 3 Speech-Plan Treatment Plan Speech Therapy Treatment Plan: Continue Plan of Care Continue skilled speech pathology to target functional problem solving and communication. Treatment Duration: Dec 06, 2016 # of days/week Four to five. Visits Per Week: Four to five. Minutes/Day (M-F): 30 Rehab Potential: Guarded Safety Risks/Education Teaching Recipient: Patient Teaching Methods: Discussion Response to Teaching: Verbalize Understanding, Return Demonstration Education Topics Provided: External Memory Strategies Time Speech Therapy Time In: 08:15 Speech Therapy Time Out: 08:45 Total Billed Time: 30 Billed Treatment Time Luis FMARIA DEL CARMENLEELA LEWISJaneneMARIA FERNANDA ST November 18, 2016 09:51
--- NOTE | 2016-11-18 10:30 | Diagnostic Imaging Report ---
INDICATION: Confusion and a history of stroke. EXAM: PA and lateral obtained at 10:19 hrs. a.m. FINDINGS: Heart is normal in size. Distal silhouette is unremarkable except for some tortuosity of the aorta. There are some mild atelectatic change versus infiltrate in the left base. Right lung is grossly clear. There is no pleural fluid or pneumothorax. IMPRESSION: Tortuous aorta. Mild left basilar atelectatic change versus infiltrate. No significant pleural fluid or pneumothorax. Dictated by: Dictated on workstation # [id number]
--- NOTE | 2016-11-18 12:00 | Physical Therapy Daily Note ---
PT Daily Note-Current Subjective Pt. somewhat confused and needs some convincing to participate. Pt. states he cant leave his room without his wallet and money. (Pt. does not have wallet her per nursing). Pt. states he is waiting for some people from [facility] for an important meeting and shouldnt leave the room. Pt. agreed to go with julio PROPERTY AND CASUALTY INSURANCE AGENT after some discussion Pain Numeric Pain Scale: 0-No Pain Mental Status Patient Orientation: Confused Attachments: Oxygen Transfers Functional [place] Measure 0=Not Assessed/NA 4=Minimal Assistance 1=Total Assistance 5=Supervision or Setup 2=Maximal Assistance 6=Modified [place] 3=Moderate Assistance 7=Complete IndependenceIRFPAI Quality Coding Scale 6 Independent with activity with or without an assistive device 5 Patient requires set up or clean up by helper. Patient completes activity by themselves 4 Supervision or touching assist (CGA). [place] provide cues , steadying assist 3 The helper provides less than half the effort to complete the activity 2 The helper provides more than half the effort to complete the activity 1 Dependent. The helper does all the effort to complete an activity 7 Patient refused to complete or attempt activity 9 The patient did not perform the activity before the current illness or injury 88 Not attempted due to Medical conditions or safety concerns Gait Training Does the Patient Walk?: Yes Gait (FIM): 5 Distance (FIM): 3=150 ft (250x3) Gait Level of Assist: 5 Gait Persons Needed: 1 Gait Assistive Device: FWW pt. needs cuing for safety and where to turn and go . If he does not hear or heed to instruction he needs tactile guidance Exercises Seated Therapy Exercises: Ankle pumps, Sit to stand, Long arc quads, Hip flexion, Hip abd/add Seated Reps: 12 NuStep Minutes: 12 NuStep Workload: 2 Treatments toileting with min assist pants, belt buckle etc. Assessment Current Status: Good Progress cognition and confusion as well as TLINGIT & HAIDA limit pts. participation PT Short Term Goals Short Term Goals Time Frame: November 11, 2016 Transfers (B,C,W/C) (FIM): 4 (CGA) Gait (FIM): 4 (CGA) Gait Distance Comment: 150' Gait Level of Assist: 4 (CGA) Gait Assistive Device: FWW Wheelchair Distance: 150' PT Informatics Developer Goals Informatics Developer Goals PT Informatics Developer Goals Time Frame: November 25, 2016 Transfers (B,C,W/C) (FIM): 5 Sit to Lying (QC): 4 Lying-Sitting on Side/Bed(QC): 5 Sit to Stand (QC): 4 Rollin Roll Left to Right (QC): 4 Chair/Der-wo-Lwwqj Xfer(QC): 4 Car Transfer (QC): 4 Gait (FIM): 5 Distance: 200' Walk 10 feet (QC): 4 Walk 10ft-Uneven Surface(QC): 4 Walk 50ft with 2 Turns (QC): 4 Walk 150 ft (QC): 4 Gait Level of Assist: 5 Gait Assistive Device: FWW Stairs (FIM): 2 # of Steps: 4 1 Step (curb) (QC): 4 4 Steps (QC): 4 12 Steps (QC): 88 Stairs Level Of Assist: 4 (CGA) Picking up an Object (QC): 88 PT Plan Treatment/Plan Treatment Plan: Continue Plan of Care Treatment Plan: Bed Mobility, Education, Functional Activity Issa, Functional Strength, Group Therapy, Gait, Safety, Therapeutic Exercise, Transfers Treatment Duration: November 25, 2016 Visits Per Week: 10-11 Minutes/Day (M-F): 60-90 Minutes/Day (Sat/[place]): 15-30 Safety Risks/Education Patient Education: Gait Training, Transfer Techniques, Correct Positioning, Disease Process, Safety Issues Teaching Recipient: Patient Teaching Methods: Demonstration, Discussion Response to Teaching: Verbalize Understanding, Return Demonstration, Reinforcement Needed Time/GCodes Time In: 1100 Time Out: 1200 Total Billed Treatment Time: 60 Total Billed Treatment 1,FA30m,EX15m,GT15m G Codes Necessary: TARA Jensen PROPERTY AND CASUALTY INSURANCE AGENT November 18, 2016 12:00
[2016-11-18] MEDS: CEFDINIR 300 MG (OMNICEF) CAP PO SCH ×2 (13:00→20:07)
--- NOTE | 2016-11-18 14:03 | Therapy Group Daily Note ---
Therapy Daily Group Note Patient Education Topic Other List Below (benefits of exercise) Exercises LE Seated Exercise, UE Exercise Other/Notes Pt. attended group PT session. Pt. ambulated with FWW and CGA to and assist O2. Pt. was minimally vocal but somewhat social , laughing and inferring that others were funny to watch exercise. Group question : "what was your first car? " Pts. all had a great time sharing the old model they first drove. Pt. did not lead exercises like others as he could not comprehend etc. Education focused on benefits of exercise. Pt. to room after group, in chair with robin at hand and alarm insitu Start Time: 13:00 Stop Time: 13:40 Total Billed Treatment Time: 40 Total Billed Treatment 1,GRP TARA PEÑA BALL POINTS INSPECTOR November 18, 2016 14:02
[2016-11-18 16:45] VITALS: BP 109/65
[2016-11-18] MEDS: warFARin 5 MG (COUMADIN) TAB PO SCH (17:26)
[2016-11-18] MEDS: GABAPENTIN 300 MG (NEURONTIN) CAP PO SCH (20:07)
[2016-11-18] MEDS: DONEPEZIL 10 MG (ARICEPT) TAB PO SCH (20:07)
[2016-11-18] MEDS: ATORVASTATIN 40 MG (LIPITOR) TABLET PO SCH (20:07)
[2016-11-18] MEDS: LATANOPROST 0.005% (XALATAN) OPHTH SOLN 2.5 ML OU SCH (20:10)
[2016-11-19] MEDS: RT-ALBUTEROL/IPRATROPIUM 3 ML (DUONEB) VIAL INH SCH ×4 (02:54→19:33)
[2016-11-19 06:00] VITALS: BP 127/76
[2016-11-19] MEDS: CALCIUM ACETATE 667 MG PO SCH ×2 (06:19→16:29)
[2016-11-19] MEDS: inSUlin ASPART (NovoLOG) 1 UNIT/0.01 ML (CHARGE PER UNIT) SC SCH ×4 (06:20→20:53)
[2016-11-19] MEDS: OMEPRAZOLE 20 MG (PriLOSEC) CAP NON-FORMULARY PO SCH (06:20)
[2016-11-19] MEDS: FOLIC ACID 1 MG TAB PO SCH (06:20)
[2016-11-19] MEDS: ASPIRIN 81 MG CHEW (CHILDREN'S ASA) PO SCH (08:13)
[2016-11-19] MEDS: guaiFENesin/DM (ROBITUSSIN DM) 10 ML UDC PO PRN (08:13)
[2016-11-19] MEDS: SINEMET 25/250 (CARBIDOPA/LEVODOPA) TAB PO SCH ×4 (08:13→20:58)
[2016-11-19] MEDS: CYANOCOBALAMIN 500 MCG TAB (VITAMIN B-12) PO SCH (08:13)
[2016-11-19] MEDS: MAGNESIUM OXIDE (MAG-OX)400 MG TAB PO SCH (08:13)
[2016-11-19] MEDS: CEFDINIR 300 MG (OMNICEF) CAP PO SCH ×2 (08:13→20:58)
[2016-11-19] MEDS: LORATADINE (CLARITIN) 10 MG TAB PO SCH (08:13)
[2016-11-19] MEDS: FLUTICASONE NASAL SPRAY (FLONASE) 16 GM BTL NS SCH (08:14)
[2016-11-19] MEDS: RT-BUDESONIDE NEBS 0.5 MG/2ML (PULMICORT) AMP INH SCH ×2 (09:03→19:33)
[2016-11-19] MEDS: ARFORMOTEROL 15 MCG/2 ML (BROVANA) INH SOLUTIION IH SCH ×2 (09:04→19:33)
--- NOTE | 2016-11-19 11:29 | Physical Therapy Daily Note ---
PT Daily Note-Current Subjective Pt. up in chair upon arrival, agrees to therapy. Pt. spills coffee while in chair, assist for cleanup. Pt. denies any pain. Mental Status Patient Orientation: Normal For Age Attachments: Oxygen (2.5 L) Transfers Functional [place] Measure 0=Not Assessed/NA 4=Minimal Assistance 1=Total Assistance 5=Supervision or Setup 2=Maximal Assistance 6=Modified [place] 3=Moderate Assistance 7=Complete IndependenceIRFPAI Quality Coding Scale 6 Independent with activity with or without an assistive device 5 Patient requires set up or clean up by helper. Patient completes activity by themselves 4 Supervision or touching assist (CGA). [place] provide cues , steadying assist 3 The helper provides less than half the effort to complete the activity 2 The helper provides more than half the effort to complete the activity 1 Dependent. The helper does all the effort to complete an activity 7 Patient refused to complete or attempt activity 9 The patient did not perform the activity before the current illness or injury 88 Not attempted due to Medical conditions or safety concerns Transfers (B, C, W/C) (FIM): 5 Sit to/from Stand: 5 Gait Training Does the Patient Walk?: Yes Gait (FIM): 4 Distance (FIM): 3=150 ft Distance: 2 x 200 ft Gait Level of Assist: 4 Gait Persons Needed: 1 Gait Assistive Device: FWW good gait speed and no cem LOB although appears impulsive at times Exercises NuStep Minutes: 8 NuStep Workload: 4 Treatments assist to don pants, gait, exercise Assessment Current Status: Good Progress Pt. did well with mobility and nustep exercise. He is slightly unsteady with gait but no cem LOB. Pt. returned to bedside chair post session, call light in reach, chair alarm set, and all needs met. PT Short Term Goals Short Term Goals Time Frame: November 11, 2016 Transfers (B,C,W/C) (FIM): 4 (CGA) Gait (FIM): 4 (CGA) Gait Distance Comment: 150' Gait Level of Assist: 4 (CGA) Gait Assistive Device: FWW Wheelchair Distance: 150' PT Veterinary Meat Inspector Goals Veterinary Meat Inspector Goals PT Half-Way Goals Time Frame: November 25, 2016 Transfers (B,C,W/C) (FIM): 5 Sit to Lying (QC): 4 Lying-Sitting on Side/Bed(QC): 5 Sit to Stand (QC): 4 Rollin Roll Left to Right (QC): 4 Chair/Wyi-ln-Fodxb Xfer(QC): 4 Car Transfer (QC): 4 Gait (FIM): 5 Distance: 200' Walk 10 feet (QC): 4 Walk 10ft-Uneven Surface(QC): 4 Walk 50ft with 2 Turns (QC): 4 Walk 150 ft (QC): 4 Gait Level of Assist: 5 Gait Assistive Device: FWW Stairs (FIM): 2 # of Steps: 4 1 Step (curb) (QC): 4 4 Steps (QC): 4 12 Steps (QC): 88 Stairs Level Of Assist: 4 (CGA) Picking up an Object (QC): 88 PT Plan Treatment/Plan Treatment Plan: Continue Plan of Care Treatment Plan: Bed Mobility, Education, Functional Activity [place], Functional Strength, Group Therapy, Gait, Safety, Therapeutic Exercise, Transfers Treatment Duration: November 25, 2016 Visits Per Week: 10-11 Minutes/Day (M-F): 60-90 Minutes/Day (Sat/[place]): 15-30 Time/GCodes Time In: 1015 Time Out: 1045 Total Billed Treatment Time: 30 Total Billed Treatment 1, FA 22', Ex 8' VISHAL LO PT November 19, 2016 11:29
[2016-11-19] MEDS: warFARin 5 MG (COUMADIN) TAB PO SCH (17:19)
[2016-11-19 17:40] VITALS: BP 106/56
[2016-11-19] MEDS: GABAPENTIN 300 MG (NEURONTIN) CAP PO SCH (20:58)
[2016-11-19] MEDS: LATANOPROST 0.005% (XALATAN) OPHTH SOLN 2.5 ML OU SCH (20:58)
[2016-11-19] MEDS: ATORVASTATIN 40 MG (LIPITOR) TABLET PO SCH (20:58)
[2016-11-19] MEDS: DONEPEZIL 10 MG (ARICEPT) TAB PO SCH (20:58)
[2016-11-20] MEDS: RT-ALBUTEROL/IPRATROPIUM 3 ML (DUONEB) VIAL INH SCH ×5 (01:53→19:06)
[2016-11-20] MEDS: guaiFENesin/DM (ROBITUSSIN DM) 10 ML UDC PO PRN (02:27)
[2016-11-20 05:44] VITALS: BP 115/73
[2016-11-20] MEDS: inSUlin ASPART (NovoLOG) 1 UNIT/0.01 ML (CHARGE PER UNIT) SC SCH ×4 (05:46→20:07)
[2016-11-20] MEDS: FOLIC ACID 1 MG TAB PO SCH (06:05)
[2016-11-20] MEDS: CALCIUM ACETATE 667 MG PO SCH ×2 (06:05→16:07)
[2016-11-20] MEDS: OMEPRAZOLE 20 MG (PriLOSEC) CAP NON-FORMULARY PO SCH (06:06)
[2016-11-20 06:12] LABS: INR 2.7 (0.8-1.4); PROTHROMBIN TIME PATIENT 28.6 SEC (12.2-14.7)
[2016-11-20] MEDS: CYANOCOBALAMIN 500 MCG TAB (VITAMIN B-12) PO SCH (08:20)
[2016-11-20] MEDS: ASPIRIN 81 MG CHEW (CHILDREN'S ASA) PO SCH (08:20)
[2016-11-20] MEDS: LORATADINE (CLARITIN) 10 MG TAB PO SCH (08:20)
[2016-11-20] MEDS: CEFDINIR 300 MG (OMNICEF) CAP PO SCH ×2 (08:20→20:09)
[2016-11-20] MEDS: SINEMET 25/250 (CARBIDOPA/LEVODOPA) TAB PO SCH ×4 (08:20→20:08)
[2016-11-20] MEDS: MAGNESIUM OXIDE (MAG-OX)400 MG TAB PO SCH (08:20)
[2016-11-20] MEDS: FLUTICASONE NASAL SPRAY (FLONASE) 16 GM BTL NS SCH (08:21)
[2016-11-20 08:24] VITALS: BP 113/66
[2016-11-20] MEDS: ARFORMOTEROL 15 MCG/2 ML (BROVANA) INH SOLUTIION IH SCH ×2 (08:46→19:06)
[2016-11-20] MEDS: RT-BUDESONIDE NEBS 0.5 MG/2ML (PULMICORT) AMP INH SCH ×2 (08:46→19:06)
[2016-11-20] MEDS: warFARin 5 MG (COUMADIN) TAB PO SCH (17:28)
[2016-11-20 17:57] VITALS: BP 133/74
[2016-11-20] MEDS: GABAPENTIN 300 MG (NEURONTIN) CAP PO SCH (20:08)
[2016-11-20] MEDS: DONEPEZIL 10 MG (ARICEPT) TAB PO SCH (20:08)
[2016-11-20] MEDS: LATANOPROST 0.005% (XALATAN) OPHTH SOLN 2.5 ML OU SCH (20:10)
[2016-11-20] MEDS: ATORVASTATIN 40 MG (LIPITOR) TABLET PO SCH (20:14)
[2016-11-21] MEDS: RT-ALBUTEROL/IPRATROPIUM 3 ML (DUONEB) VIAL INH SCH (02:35)
[2016-11-21 05:02] VITALS: BP 104/56
[2016-11-21 06:10] LABS: INR 2.5 (0.8-1.4); PROTHROMBIN TIME PATIENT 26.6 SEC (12.2-14.7)
[2016-11-21] MEDS: inSUlin ASPART (NovoLOG) 1 UNIT/0.01 ML (CHARGE PER UNIT) SC SCH ×2 (06:33→10:03)
[2016-11-21] MEDS: FOLIC ACID 1 MG TAB PO SCH (06:33)
[2016-11-21] MEDS: CALCIUM ACETATE 667 MG PO SCH (06:33)
[2016-11-21] MEDS: OMEPRAZOLE 20 MG (PriLOSEC) CAP NON-FORMULARY PO SCH (06:33)
[2016-11-21] MEDS: ARFORMOTEROL 15 MCG/2 ML (BROVANA) INH SOLUTIION IH SCH (07:12)
[2016-11-21] MEDS: RT-BUDESONIDE NEBS 0.5 MG/2ML (PULMICORT) AMP INH SCH (07:12)
--- NOTE | 2016-11-21 07:57 | Progress Note (SOAP) ---
Subjective Subjective/Events-last exam patient was confused. CVA. Patient stable.. Objective Exam Vital Signs Date Time Temp Pulse Resp B/P (MAP) Pulse Ox O2 Delivery O2 Flow Rate FiO2 11/21/16 05:02 97.7 75 18 104/56 95 2.50 11/21/16 02:35 91 2.00 11/20/16 21:00 2.50 11/20/16 19:17 2.00 11/20/16 19:06 94 2.00 11/20/16 17:57 98.7 76 18 133/74 97 2.50 11/20/16 14:55 97 2.00 11/20/16 09:00 2.50 11/20/16 08:50 2.00 11/20/16 08:46 96 2.00 11/20/16 08:24 90 113/66 I & O 11/21/16 07:00 Intake Total 1380 ml Balance 1380 ml Capillary Refill : General Appearance: No Apparent Distress, WD/WN HEENT: Normal ENT Inspection Neck: Normal Inspection Respiratory: Chest Non Tender, No Accessory Muscle Use, No Respiratory Distress Cardiovascular: Regular Rate, Rhythm, No Murmur Gastrointestinal: non tender, soft Results Lab Laboratory Tests 11/20/16 09:43: Glucometer 87 11/20/16 15:01: Glucometer 145H 11/20/16 19:59: Glucometer 128H 11/21/16 04:24: Glucometer 121H 11/21/16 05:30: Prothrombin Time 26.6H, INR Comment 2.5H Assessment/Plan Assessment/Plan Assess & Plan/Chief Complaint CVA. COPD. Parkinson disease. DVT. Dementia.. Patient on 3 L of oxygen. Patient slept well last night. . 11/08/16. CVA. COPD. Parkinson disease. DVT. Dementia. Patient has less confusion today. . 11/09/16. CVA. COPD. Parkinson disease. DVT. Dementia. Noa of hearing. . 11/10/16. CVA. COPD. Parkinson disease. Dementia. Patient voices no complaints today. . 11/11/16. CVA. COPD Parkinson disease. DVT. Dementia. . CVA. COPD. Parkinson disease. DVT>Dementia. Numbness in arm. . 11/15/16. CVA. COPD. Parkinson disease. Dementia. Patient doing better today. Patient not having any problems. . 11/16. CVA. COPD. Parkinson disease. Dementia. Patient improving. . 11/17/16. CVA. COPD. Parkinson disease. Dementia. Patient was confused today this morning. . 11/18/16. CVA. COPD. Dementia. Patient not confused this morning.. Patient having more own problem. . 11/20/16. CVA. COPD. Dementia Patient less confused Clinical Quality Measures DVT/VTE Risk/Contraindication: Risk Factor Score Per Nursin RFS Level Per Nursing on Admit: 4+=Very High [place] KIM DO November 21, 2016 07:57
[2016-11-21] MEDS: MAGNESIUM OXIDE (MAG-OX)400 MG TAB PO SCH (08:17)
[2016-11-21] MEDS: CYANOCOBALAMIN 500 MCG TAB (VITAMIN B-12) PO SCH (08:17)
[2016-11-21] MEDS: ASPIRIN 81 MG CHEW (CHILDREN'S ASA) PO SCH (08:17)
[2016-11-21] MEDS: SINEMET 25/250 (CARBIDOPA/LEVODOPA) TAB PO SCH ×2 (08:17→12:51)
[2016-11-21] MEDS: LORATADINE (CLARITIN) 10 MG TAB PO SCH (08:17)
[2016-11-21] MEDS: CEFDINIR 300 MG (OMNICEF) CAP PO SCH (08:17)
[2016-11-21] MEDS: FLUTICASONE NASAL SPRAY (FLONASE) 16 GM BTL NS SCH (08:18)
--- NOTE | 2016-11-21 08:22 | Therapy Team Discharge Summary ---
Therapy Discharge Summary Discharge Recommendations Date of Discharge Therapy D/C Recommendations: Assisted Living, Occupational Therapy Home Care, Scheduled Assistance Speech-Language Pathology The patient was recently admitted to [facility] following a CVA. Upon admission, the patient demonstrated significant confusion and a moderate cognitive impairment (most notably in memory). Skilled speech pathology focused on functional memory strategies, safety problem solving, and word-finding. The patient demonstrated improvement through his stay, however, his confusion level continued to wax and wean. The patient did not meet the goals initially placed by this therapist. The patient will be discharged from skilled speech pathology at this time. Due to fluctuating confusion, 24 hour care is recommended. PT Penitentiary Goals Penitentiary Goals PT Penitentiary Goals Time Frame: November 25, 2016 Transfers (B,C,W/C) (FIM): 5 Roll Left to Right (QC): 4 Sit to Lying (QC): 4 Lying-Sitting on Side/Bed(QC): 5 Sit to Stand (QC): 4 Chair/Pbk-pb-Astch Xfer(QC): 4 Car Transfer (QC): 4 Gait (FIM): 5 Distance: 200' Walk 10 feet (QC): 4 Walk 10ft-Uneven Surface(QC): 4 Walk 50ft with 2 Turns (QC): 4 Walk 150 ft (QC): 4 Gait Level of Assist: 5 Gait Assistive Device: FWW Stairs (FIM): 2 # of Steps: 4 1 Step (curb) (QC): 4 4 Steps (QC): 4 12 Steps (QC): 88 Stairs Level Of Assist: 4 (CGA) Picking up an Object (QC): 88 OT Scarfing Machine Operator Goals Penitentiary Goals Time Frame: November 25, 2016 Eating (FIM): 6 Eating (QC): 6 Oral Hygiene (QC): 6 Grooming(FIM): 6 Bathing(FIM): 5 Shower/Bathe Self (QC): 5 Upper Body Dressing(FIM): 5 Upper Body Dressing (QC): 5 Lower Body Dressing(FIM): 5 Lower Body Dressing (QC): 5 On/Off Footwear (QC): 5 Toileting(FIM): 5 Toileting Hygiene (QC): 5 Toilet/Commode Transfer(FIM): 5 Toilet/Commode Transfer (QC): 5 Shower Transfer(FIM): 5 Comprehension(FIM): 3 Expression (FIM): 4 Social Interaction(FIM): 4 Problem Solving(FIM): 3 Memory(FIM): 3 Additional Goals: 1-Demonstrate ADL Tasks, 2-Verbalize Understanding, 3- ImproveStrength/Issa 1=Demonstrate adherence to instructed precautions during ADL tasks. 2=Patient will verbalize/demonstrate understanding of assistive devices/ modifications for ADL. 3=Patient will improve strength/tolerance for activity to enable patient to perform ADL's. Speech Scarfing Machine Operator Goals Penitentiary Goals 1. The patient will demonstrate improved cognitive linguistic skills for increased function and safety with ADL's. Time Frame: Four Weeks Comprehension: 3 (NOT MET) Expression: 4 (NOT MET) Social Interaction: 4 (NOT MET) Problem Solvin (NOT MET) Memory: 3 (NOT MET) MARIA FERNANDA ELDRIDGE November 21, 2016 08:22
--- NOTE | 2016-11-21 08:39 | PM & R (SOAP) Progress Note ---
Subjective Subjective/Events-last exam Patient was seen in his room this AM Informed by Nursing and therapy staff that patient will be going home with his family to assist.He lives in [place] and PCP DR May Patient has O2 at home.Patient SBA for Transfers and Min assist for gait. Objective Exam Last Set of Vital Signs Vital Signs Date Time Temp Pulse Resp B/P (MAP) Pulse Ox O2 Delivery O2 Flow Rate FiO2 11/21/16 07:13 92 2.00 11/21/16 05:02 97.7 75 18 104/56 Capillary Refill : I&O Intake and Output 11/21/16 00:00 Intake Total 1480 ml Balance 1480 ml Intake Oral 1480 ml # Voids 8 General: Alert, Cooperative, No Acute Distress HEENT: Atraumatic, PERRLA, EOMI, Mucous Memb Moist/[place] Neck: Supple, No JVD Lungs: Clear to Auscultation Heart: Regular Rate Abdomen: Normal Bowel Sounds, Soft, No Tenderness Extremities: No Edema Neuro: Other (generalized weakness memory loss) Results Lab Laboratory Tests 11/18/16 09:29: Glucometer 121H 11/18/16 14:27: Glucometer 104 11/18/16 21:19: Glucometer 164H 11/19/16 06:18: Glucometer 91 11/19/16 09:29: Glucometer 94 11/19/16 14:38: Glucometer 102 11/19/16 20:42: Glucometer 142H 11/20/16 05:40: Prothrombin Time 28.6H, INR Comment 2.7H 11/20/16 05:41: Glucometer 97 11/20/16 09:43: Glucometer 87 11/20/16 15:01: Glucometer 145H 11/20/16 19:59: Glucometer 128H 11/21/16 04:24: Glucometer 121H 11/21/16 05:30: Prothrombin Time 26.6H, INR Comment 2.5H Assessment/Plan Assessment 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
[2016-11-21] MEDS ORDERED: CEFD300C3 PO (08:43)
[2016-11-21] MEDS ORDERED: ASPI-999 PO (08:43)
--- NOTE | 2016-11-21 09:28 | Occupational Ther Daily Note ---
OT Current Status-Daily Note Subjective Pt alert, sitting in recliner. Pt stated that he didn't feel very well. Pt agreed to therapy. Mental Status/Objective Patient Orientation: Person Functional [place] Measure 0=Not Assessed/NA 4=Minimal Assistance 1=Total Assistance 5=Supervision or Setup 2=Maximal Assistance 6=Modified [place] 3=Moderate Assistance 7=Complete [place] ADL-Treatment Functional [place] Measure 0=Not Assessed/NA 4=Minimal Assistance 1=Total Assistance 5=Supervision or Setup 2=Maximal Assistance 6=Modified [place] 3=Moderate Assistance 7=Complete IndependenceIRFPAI Quality Coding Scale 6 Independent with activity with or without an assistive device 5 Patient requires set up or clean up by helper. Patient completes activity by themselves 4 Supervision or touching assist (CGA). [place] provide cues , steadying assist 3 The helper provides less than half the effort to complete the activity 2 The helper provides more than half the effort to complete the activity 1 Dependent. The helper does all the effort to complete an activity 7 Patient refused to complete or attempt activity 9 The patient did not perform the activity before the current illness or injury 88 Not attempted due to Medical conditions or safety concerns Eating (FIM): 5 (Dentures. Set up with opening containers/packages. Pt is able to use regular utensils to feed self, cut up food and spread butter/jelly.) Eating (QC): 5 (Dentures. Set up with opening containers/packages. Pt is able to use regular utensils to feed self, cut up food and spread butter/jelly.) Grooming (FIM): 5 (SBA standing at sink completes all grooming.) Oral Hygiene (QC): 4 (SBA standing at sink completes all oral care.) Bathing (FIM): 5 (Using shower bench, hand held shower and grabbars, pt requires close SBA. Pt stands to shower self and holds onto grabbars to stabilize self.) Bathing Location: L Arm, R Arm, L Upper Leg, R Upper Leg, L Lower Leg ( including foot), R Lower Leg (including foot), Chest, Abdomen, Buttocks, Perineal Area Shower/Bathe Self (QC): 4 (Using shower bench, hand held shower and grabbars, pt requires close SBA. Pt stands to shower self and holds onto grabbars to stabilize self.) Upper Body (FIM): 4 (After set up, pt is able to don/doff shirts. Pt will lose track of how to complete task and will needs help to problem solve what to do next.) Upper Body Dressing (QC): 4 (After set up, pt is able to don/doff shirts. Pt will lose track of how to complete task and will needs help to problem solve what to do next.) Lower Body Dressing (FIM): 4 (After set up, pt require assist to don socks and intial help to thread legs through pants. Pt is able to pull up, hike over hips and button/zip. Pt dons shoes by self.) Lower Body Dressing (QC): 3 (After set up, pt require assist to don socks and intial help to thread legs through pants. Pt is able to pull up, hike over hips and button/zip. Pt dons shoes by self.) On/Off Footwear (QC): 3 (Doffs by self. Dons shoes by self, assist to don socks.) Toileting (FIM): 5 (Using grabbars and FWW, pt is able to complete toileting with SBA.) Toileting Hygiene (QC): 4 (Using grabbars and FWW, pt is able to complete toileting with SBA.) Transfers (B, C, W/C) (FIM): 5 (Using FWW, pt is able to complete transfers with SBA.) Toilet/Commode Transfer (FIM): 5 (Using grabbars and FWW, pt is able to transfer with SBA.) Toilet Transfer (QC): 4 (Using grabbars and FWW, pt is able to transfer with SBA.) Shower Transfer(FIM): 5 (Using shower bench, grabbars and FWW pt is able to complete with SBA.) Pt loses track of steps of sequence in task then requires assist to problem solve what to do next. Pt wears oxygen though will take it off and leave off for some time. After therapy, pt sitting in recliner with feet up. Call light/ phone in reach. All needs met in room. OT Short Term Goals Short Term Goals Time Frame: November 11, 2016 Bathing(FIM): 4 Lower Body Dressing(FIM): 4 Toileting(FIM): 4 Transfers (B,C,W/C) (FIM): 4 (CGA) 1=Demonstrate adherence to instructed precautions during ADL tasks. 2=Patient will verbalize/demonstrate understanding of assistive devices/ modifications for ADL. 3=Patient will improve strength/tolerance for activity to enable patient to perform ADL's. OT Slitter Creaser Slotter Helper Goals Detention Goals Time Frame: November 25, 2016 Eating (FIM): 6 Eating (QC): 6 Groomin Oral Hygiene (QC): 6 Bathing(FIM): 5 Shower/Bathe Self (QC): 5 Upper Body Dressing(FIM): 5 Upper Body Dressing (QC): 5 Lower Body Dressing(FIM): 5 Lower Body Dressing (QC): 5 On/Off Footwear (QC): 5 Toileting(FIM): 5 Toileting Hygiene (QC): 5 Toilet/Commode Transfer(FIM): 5 Toilet/Commode Transfer (QC): 5 Shower Transfer(FIM): 5 Comprehension(FIM): 3 (NOT MET) Expression (FIM): 4 (NOT MET) Social Interaction(FIM): 4 (NOT MET) Problem Solving(FIM): 3 (NOT MET) Memory(FIM): 3 (NOT MET) Additional Goals: 1-Demonstrate ADL Tasks, 2-Verbalize Understanding, 3- ImproveStrength/Issa 1=Demonstrate adherence to instructed precautions during ADL tasks. 2=Patient will verbalize/demonstrate understanding of assistive devices/ modifications for ADL. 3=Patient will improve strength/tolerance for activity to enable patient to perform ADL's. OT Education/Plan Problem List/Assessment Pt to benefit from skilled OT intervention for ADL training, transfers, strengthening, and safety education to maximize level of function and allow safe return home with family support. Discharge Recommendations Plan/Recommendations: Continue POC Treatment Plan/Plan of Care Patient would benefit from OT for education, treatment and training to promote independence in ADL's, mobility, safety and/or upper extremity function for ADL' s. Plan of Care: ADL Retraining, Functional Mobility, Group Exercise/Act as Ind, UE Funct Exercise/Act, UE Neuromus Re-Ed/Coord Treatment Duration: November 25, 2016 Visits Per Week: 10-12 Minutes/Day (M-F): 60-90 Minutes/Day (Sat/[place]): PRN Agreement: Yes Rehab Potential: Guarded Time/GCodes Start Time: 08:30 Stop Time: 09:45 Total Time Billed (hr/min): 75 Billed Treatment Time 1 visit-ADL 5 (75 min) DOMINGO PIMENTEL November 21, 2016 09:28
--- NOTE | 2016-11-21 10:22 | Speech Therapy Daily Note ---
Speech Daily Progress Note Subjective The patient was sitting upright in recliner upon entrance. The patient greeted the clinician appropriately and was agreeable to participation in the cognitive treatment session. Objective As the patient is scheduled to discharge on this date, portions of the Snyder Cognitive Assessment (MoCA) were provided to the patient for updated FIM scoring. The results are as follows: - Naming: The patient was able to name three of three black and white photographs. - Attention: The patient was unable to repeat five single digits forward of three single digits in reverse. Additionally, the patient was unable to identify a specific letter in a string of letters (which may be secondary to the patient's decreased hearing ability). - Language: The patient was able to repeat short phrases and following simple one-step commands. The patient continues to demonstrate word-finding difficulty as he names two 'b' words in a one minute duration (WNL=11). - Memory (immediate and delayed): The patient was able to recall three of five words immediately and zero of five words following a five minute delay. - Orientation: The patient stated the month and city accurately. The patient was unable to state the day of week, date, or year. The patient continues to demonstrate moderate cognitive deficits in the area of attention, memory, problem solving, and orientation. Assessment Assessment Current Status: Poor Progress Treatment Plan Continue Plan of Care Communication Comprehension: 3 Expression: 3 Social Cognition Social Interaction: 3 Problem Solvin Memory: 2 Speech Short Term Goals Short Term Goals Short Term Goals 1. The patient will demonstrate 80% accuracy with simple orientation questions with the use of an external aid. 2. The patient will display 80% accuracy with functional safety problem solving with mild clinician verbal cueing. 3. The patient will demonstrate and recall two memory strategies for use at home with mild clinician verbal cueing. Time Frame-STG: Two Weeks Speech Lead Security Officer Goals Half-Way Goals 1. The patient will demonstrate improved cognitive linguistic skills for increased function and safety with ADL's. Time Frame: Four Weeks Comprehension: 3 (NOT MET) Expression: 4 (NOT MET) Social Interaction: 4 (NOT MET) Problem Solvin (NOT MET) Memory: 3 (NOT MET) Speech-Plan Treatment Plan Speech Therapy Treatment Plan: Continue Plan of Care Continue skilled speech pathology to target functional memory and problem solving. Treatment Duration: Dec 06, 2016 # of days/week Four to five. Visits Per Week: Four to five. Minutes/Day (M-F): 30 Rehab Potential: Guarded Safety Risks/Education Teaching Recipient: Patient Teaching Methods: Discussion Response to Teaching: Reinforcement Needed Education Topics Provided: Results, Recommendations Time Speech Therapy Time In: 09:45 Speech Therapy Time Out: 10:00 Total Billed Time: 15 Billed Treatment Time 1ARACELIS ELIZABETH ST November 21, 2016 10:22
--- NOTE | 2016-11-21 12:54 | Physical Therapy Daily Note ---
PT Daily Note-Current Subjective Patient in chair pre tx, he is leaving today and his FIMs need assessed. Patient has no complaints of pain. Appearance Patient in bathroom on toilet post tx, nursing with him. Mental Status Patient Orientation: Person, Place Attachments: Oxygen Transfers Functional [place] Measure 0=Not Assessed/NA 4=Minimal Assistance 1=Total Assistance 5=Supervision or Setup 2=Maximal Assistance 6=Modified [place] 3=Moderate Assistance 7=Complete IndependenceIRFPAI Quality Coding Scale 6 Independent with activity with or without an assistive device 5 Patient requires set up or clean up by helper. Patient completes activity by themselves 4 Supervision or touching assist (CGA). [place] provide cues , steadying assist 3 The helper provides less than half the effort to complete the activity 2 The helper provides more than half the effort to complete the activity 1 Dependent. The helper does all the effort to complete an activity 7 Patient refused to complete or attempt activity 9 The patient did not perform the activity before the current illness or injury 88 Not attempted due to Medical conditions or safety concerns Transfers (B, C, W/C) (FIM): 4 Scootin Rollin Roll Left to Right (QC): 4 Supine to/from Sit: 4 Sit to/from Stand: 5 Sit to Lying (QC): 3 Sit to Stand (QC): 4 Patient performs bed mobility with SBA except for supine <-> sit which is min assist, transfers with SBA Gait Training Gait (FIM): 5 Distance: 200' Walk 10 feet (QC): 4 Walk 50 ft with 2 Turns(QC): 4 Walk 150 ft (QC): 4 Walking 10ft/uneven surface-QC: 3 Gait Level of Assist: 5 Gait Persons Needed: 1 Gait Assistive Device: FWW Patient ambulates 200' with a rolling walker with SBA (including 50' with at least 2 turns of 90 degrees), however, he does need min assist with balance when walking 10' over an uneven surface. Wheelchair Training Does the Pt Use a Wheelchair?: No Stair Training Stair Training: Handrails/: 2 handrails Stairs (FIM): 2 #of Steps: 8 1 Step (curb) (QC): 4 4 Steps (QC): 4 12 Steps (QC): 88 Stairs: Pattern: Step to Level of Assist: 4 CGA, cues for safety and foot placement Balance Picking up an Object (QC): 88 Treatments bed mobility and transfers, ambulation, stair training Assessment Current Status: Fair Progress overall improved transfers and ambulation PT Short Term Goals Short Term Goals Time Frame: November 11, 2016 Transfers (B,C,W/C) (FIM): 4 (CGA) Gait (FIM): 4 (CGA) Gait Distance Comment: 150' Gait Level of Assist: 4 (CGA) Gait Assistive Device: FWW Wheelchair Distance: 150' PT Fci Goals Fci Goals PT Fci Goals Time Frame: November 25, 2016 Transfers (B,C,W/C) (FIM): 5 Sit to Lying (QC): 4 Lying-Sitting on Side/Bed(QC): 5 Sit to Stand (QC): 4 (met) Rollin (met) Roll Left to Right (QC): 4 (met) Chair/Pta-zc-Vaseb Xfer(QC): 4 (met) Car Transfer (QC): 4 Gait (FIM): 5 Distance: 200' Walk 10 feet (QC): 4 (met) Walk 10ft-Uneven Surface(QC): 4 Walk 50ft with 2 Turns (QC): 4 (met) Walk 150 ft (QC): 4 (met) Gait Level of Assist: 5 (met) Gait Assistive Device: FWW Stairs (FIM): 2 (mt) # of Steps: 4 (met) 1 Step (curb) (QC): 4 (met) 4 Steps (QC): 4 (met) 12 Steps (QC): 88 Stairs Level Of Assist: 4 (CGA) Picking up an Object (QC): 88 PT Plan Problem List Problem List: Activity Tolerance, Functional Strength, Safety, Balance, Gait, Transfer, Bed Mobility Treatment/Plan Treatment Plan: Continue Plan of Care Treatment Plan: Bed Mobility, Education, Functional Activity Issa, Functional Strength, Group Therapy, Gait, Safety, Therapeutic Exercise, Transfers Treatment Duration: November 25, 2016 Visits Per Week: 10-11 Minutes/Day (M-F): 60-90 Minutes/Day (Sat/[place]): 15-30 Safety Risks/Education Patient Education: Gait Training, Transfer Techniques, Steps, Correct Positioning, Safety Issues Teaching Recipient: Patient Teaching Methods: Demonstration, Discussion Response to Teaching: Reinforcement Needed Time/GCodes Time In: 1145 Time Out: 1200 Total Billed Treatment Time: 15 Total Billed Treatment 1 visit GT 15' COMFORT GONSALES PT November 21, 2016 12:54
[2016-11-21 14:20] VITALS: BP 101/58
--- NOTE | 2016-11-21 15:13 | Therapy Team Discharge Summary ---
Therapy Discharge Summary Discharge Recommendations Date of Discharge November 21, 2016 at 14:20 Therapy D/C Recommendations: Assisted Living, Occupational Therapy Home Care, Scheduled Assistance Physical Therapy Patient came to rehab following a CVA. Upon admission patient performed bed mobility and transfers with min assist, ambulates 150' with a rolling walker with min assist, is dependent for wheelchair mobility, and can go up and down 1 step using a rolling walker with min assist. Patient has been performing bed mobility and transfer training, balance and endurance training, functional strengthening, stair training, gait training and safety education. 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 Now, patient performs bed mobility with SBA except for supine <-> sit which is min assist, transfers with SBA, ambulates 200' with a rolling walker with SBA (including 50' with at least 2 turns of 90 degrees), however, he does need min assist with balance when walking 10' over an uneven surface, and can go up and down 8 steps using 2 handrails with CGA. Patient was discharged from this facility today and will be discharged from PT at this time. PT Halfway Goals Uniform Cap Operator Goals PT Halfway Goals Time Frame: November 25, 2016 Transfers (B,C,W/C) (FIM): 5 Roll Left to Right (QC): 4 (met) Sit to Lying (QC): 4 Lying-Sitting on Side/Bed(QC): 5 Sit to Stand (QC): 4 (met) Chair/Soz-jx-Begtg Xfer(QC): 4 (met) Car Transfer (QC): 4 Gait (FIM): 5 Distance: 200' Walk 10 feet (QC): 4 (met) Walk 10ft-Uneven Surface(QC): 4 Walk 50ft with 2 Turns (QC): 4 (met) Walk 150 ft (QC): 4 (met) Gait Level of Assist: 5 (met) Gait Assistive Device: FWW Stairs (FIM): 2 (mt) # of Steps: 4 (met) 1 Step (curb) (QC): 4 (met) 4 Steps (QC): 4 (met) 12 Steps (QC): 88 Stairs Level Of Assist: 4 (CGA) Picking up an Object (QC): 88 OT Halfway Goals Uniform Cap Operator Goals Time Frame: November 25, 2016 Eating (FIM): 6 Eating (QC): 6 Oral Hygiene (QC): 6 Grooming(FIM): 6 Bathing(FIM): 5 Shower/Bathe Self (QC): 5 Upper Body Dressing(FIM): 5 Upper Body Dressing (QC): 5 Lower Body Dressing(FIM): 5 Lower Body Dressing (QC): 5 On/Off Footwear (QC): 5 Toileting(FIM): 5 Toileting Hygiene (QC): 5 Toilet/Commode Transfer(FIM): 5 Toilet/Commode Transfer (QC): 5 Shower Transfer(FIM): 5 Comprehension(FIM): 3 (NOT MET) Expression (FIM): 4 (NOT MET) Social Interaction(FIM): 4 (NOT MET) Problem Solving(FIM): 3 (NOT MET) Memory(FIM): 3 (NOT MET) Additional Goals: 1-Demonstrate ADL Tasks, 2-Verbalize Understanding, 3- ImproveStrength/Issa 1=Demonstrate adherence to instructed precautions during ADL tasks. 2=Patient will verbalize/demonstrate understanding of assistive devices/ modifications for ADL. 3=Patient will improve strength/tolerance for activity to enable patient to perform ADL's. Speech Uniform Cap Operator Goals Uniform Cap Operator Goals 1. The patient will demonstrate improved cognitive linguistic skills for increased function and safety with ADL's. Time Frame: Four Weeks Comprehension: 3 (NOT MET) Expression: 4 (NOT MET) Social Interaction: 4 (NOT MET) Problem Solvin (NOT MET) Memory: 3 (NOT MET) COMFORT GONSALES PT November 21, 2016 15:12
--- NOTE | 2016-11-22 13:25 | Therapy Team Discharge Summary ---
Therapy Discharge Summary Discharge Recommendations Date of Discharge November 21, 2016 at 14:20 Therapy D/C Recommendations: Assisted Living, Occupational Therapy Home Care, Scheduled Assistance Occupational Therapy Pt admitted to [facility]U following CVA. On admission pt generally required minimal assistance with ADLs and transfers except mod assist with LE dressing. Skilled OT intervention focused on ADL training, transfers, strengthening, and safety education. Pt progressed with therapy and by discharge is completing transfers, bathing, toileting, and grooming with SBA and dressing with minimal assistance. Pt met goals for bathing, toileting, and toilet and shower transfers, but did not meet other goals. Pt discharged home with family support. D/c ARU OT at this time. PT Jacquard Card Cutter Goals Jacquard Card Cutter Goals PT Mcc Goals Time Frame: November 25, 2016 Transfers (B,C,W/C) (FIM): 5 Roll Left to Right (QC): 4 (met) Sit to Lying (QC): 4 Lying-Sitting on Side/Bed(QC): 5 Sit to Stand (QC): 4 (met) Chair/Fmg-ut-Ztlue Xfer(QC): 4 (met) Car Transfer (QC): 4 Gait (FIM): 5 Distance: 200' Walk 10 feet (QC): 4 (met) Walk 10ft-Uneven Surface(QC): 4 Walk 50ft with 2 Turns (QC): 4 (met) Walk 150 ft (QC): 4 (met) Gait Level of Assist: 5 (met) Gait Assistive Device: FWW Stairs (FIM): 2 (mt) # of Steps: 4 (met) 1 Step (curb) (QC): 4 (met) 4 Steps (QC): 4 (met) 12 Steps (QC): 88 Stairs Level Of Assist: 4 (CGA) Picking up an Object (QC): 88 OT Mcc Goals Mcc Goals Time Frame: November 25, 2016 Eating (FIM): 6 Eating (QC): 6 Oral Hygiene (QC): 6 Grooming(FIM): 6 Bathing(FIM): 5 Shower/Bathe Self (QC): 5 Upper Body Dressing(FIM): 5 Upper Body Dressing (QC): 5 Lower Body Dressing(FIM): 5 Lower Body Dressing (QC): 5 On/Off Footwear (QC): 5 Toileting(FIM): 5 Toileting Hygiene (QC): 5 Toilet/Commode Transfer(FIM): 5 Toilet/Commode Transfer (QC): 5 Shower Transfer(FIM): 5 Comprehension(FIM): 3 (NOT MET) Expression (FIM): 4 (NOT MET) Social Interaction(FIM): 4 (NOT MET) Problem Solving(FIM): 3 (NOT MET) Memory(FIM): 3 (NOT MET) Additional Goals: 1-Demonstrate ADL Tasks, 2-Verbalize Understanding, 3- ImproveStrength/Issa 1=Demonstrate adherence to instructed precautions during ADL tasks. 2=Patient will verbalize/demonstrate understanding of assistive devices/ modifications for ADL. 3=Patient will improve strength/tolerance for activity to enable patient to perform ADL's. Speech Jacquard Card Cutter Goals Mcc Goals 1. The patient will demonstrate improved cognitive linguistic skills for increased function and safety with ADL's. Time Frame: Four Weeks Comprehension: 3 (NOT MET) Expression: 4 (NOT MET) Social Interaction: 4 (NOT MET) Problem Solvin (NOT MET) Memory: 3 (NOT MET) ZANDER BERMUDEZ OT November 22, 2016 13:25
== END 2016-11-21 14:20 | disposition home health service (06) | DRG 57 ==
LOC: ENPENDDIS 11-21 15:00
PROVIDERS: ADMIT Physical Medicine & Rehabilitation; ATTEND Physical Medicine & Rehabilitation
DX: I69.351 Hemiplegia and hemiparesis following cerebral infarction affecting right dominant side (principal); I69.392 Facial weakness following cerebral infarction; I69.398 Other sequelae of cerebral infarction; R26.81 Unsteadiness on feet; J44.9 Chronic obstructive pulmonary disease, unspecified; G20 Parkinson's disease; F03.90 Unspecified dementia, unspecified severity, without behavioral disturbance, psychotic disturbance, mood disturbance, and anxiety; E11.9 Type 2 diabetes mellitus without complications; Z86.718 Personal history of other venous thrombosis and embolism; Z99.81 Dependence on supplemental oxygen
CPT/HCPCS: 36415; 71020; 80053; 81000; 82962; 83735; 83880; 84484; 85025; 85027; 85610; 93005; 94640; 94760